=== PATIENT | male | born 1955 | race Native Hawaiian/Other Pacific Islander ===

== ENCOUNTER 2017-01-16 12:56 | Emergency (ER) | payer OTHER ==
--- NOTE | 2017-01-16 13:40 | ED Physician Documentation ---
PD HPI CHEST PAIN - Stated complaint Stated Complaint: CHEST PX,FACIAL NUMBNESS - Chief complaint Chief Complaint: Cardiac - History obtained from History obtained from: Patient, Family - History of Present Illness Timing - onset: Enter time (1129), Today Timing - onset during: Light activity Timing - duration: Hours (1) Timing - details: Abrupt onset, Now resolved Quality: Sharp, Pain Location: Right chest Radiation: Right upper extremity Improved by: Nothing Associated symptoms: Shortness of air, Diaphoresis, Nausea Similar symptoms before: Diagnosis (reflux symptoms) Recently seen: Not recently seen - Additional information Additional information: 61-year-old male has had an episode of chest pain today while at work. 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 He developed some numbness around his lips as well. He has had some similar symptoms to this previously with reflux. He has had a reflux operation more than 10 years ago and he has had one admission to [facility] for this type of chest pain and this was about 6 years ago when they did a stress test and made the diagnosis of reflux. Review of Systems Constitutional: reports: Sweats. denies: Fever, Chills, Myalgias, Fatigue Eyes: denies: Decreased vision Ears: denies: Ear pain Nose: denies: Rhinorrhea / runny nose, Congestion Throat: denies: Sore throat Cardiac: reports: Chest pain / pressure. denies: Palpitations Respiratory: reports: Dyspnea. denies: Cough GI: denies: Abdominal Pain, Nausea, Vomiting, Constipation, Diarrhea : denies: Dysuria, Frequency Skin: denies: Rash Musculoskeletal: denies: Neck pain, Back pain, Extremity pain Neurologic: reports: Numbness. denies: Generalized weakness, Focal weakness PD PAST MEDICAL HISTORY - Past Medical History Cardiovascular: Hypertension, High cholesterol GI: GERD - Past Surgical History Past Surgical History: Yes - Present Medications Home Medications: Ambulatory Orders Medication Instructions Recorded Confirmed Aspirin [Aspir 81] 81 mg PO 05/05/13 05/05/13 Cetirizine HCl [Zyrtec] 10 mg PO 05/05/13 05/05/13 High Cholestrol 05/05/13 05/05/13 Htn Meds 05/05/13 05/05/13 Simvastatin 30 mg PO 05/05/13 05/05/13 - Allergies Allergies/Adverse Reactions: Allergies Allergy/AdvReac Type Severity Reaction Status Date / Time grass pollen Allergy Respiratory Verified 01/16/17 13:06 - Social History Does the pt smoke?: No Smoking Status: Never smoker Does the pt drink ETOH?: Yes - Immunizations Immunizations: TDAP current <10years PD ED PE NORMAL - Vitals Vital signs reviewed: Yes (Hypertensive and tachycardic) - General General: Alert and oriented X 3, No acute distress, Well developed/nourished - HEENT HEENT: Atraumatic, PERRL, EOMI, Ears normal, Other (Dry mucous membranes) - Neck Neck: Supple, no meningeal sign, No bony TTP - Cardiac Cardiac: No murmur, Other (Tachycardic to 110) - Respiratory Respiratory: No respiratory distress, Clear bilaterally - Abdomen Abdomen: Soft, Non tender - Back Back: No CVA TTP, No spinal TTP - Derm Derm: Normal color, No rash - Extremities Extremities: No deformity, No edema - Neuro Neuro: Alert and oriented X 3, No motor deficit, No sensory deficit, Normal speech - Psych Psych: Normal mood, Normal affect Results - Vitals Vitals: Vital Signs - 24 hr 01/16/17 13:00 Heart Rate 100 Respiratory 18 Rate Blood Pressure 154/88 H O2 Saturation 95 Oxygen O2 Source Room air - EKG (time done) 1302 Rate: Rate (enter#) (104) Rhythm: Sinus tachycardia Ischemia: Normal ST segments, Non specific changes Compare to prior EKG: Old EKG unavailable Computer interpretation: Agree with computer - Labs Labs: Laboratory Tests 01/16/17 01/16/17 01/16/17 14:12 14:12 14:12 WBC 6.1 RBC 4.94 Hgb 14.7 Hct 43.7 MCV 88.4 MCH 29.8 MCHC 33.7 RDW 13.2 Plt Count 148 MPV 7.8 Neut # 4.4 Lymph # 1.0 L Stevens # 0.6 Eos # 0.0 Baso # 0.1 Absolute Nucleated RBC 0.00 Nucleated RBCs 0.0 Sodium 135 Potassium 4.0 Chloride 100 L Carbon Dioxide 24 Anion Gap 11.0 BUN 20 Creatinine 0.7 Estimated GFR (MDRD) 115 Glucose 117 H Calcium 9.0 Total Bilirubin 1.1 H AST 53 H ALT 45 Alkaline Phosphatase 57 Troponin I < 0.04 Total Protein 8.1 Albumin 4.5 Globulin 3.6 Albumin/Globulin Ratio 1.3 Lipase 33 - Rads (name of study) 2 view chest Radiology: Prelim report reviewed (Impression: Chronic findings. No acute disease.), EMP read indepedently, See rad report Procedures - IVC sono (time) 1336 Bedside IVC sono: IVC measures (cm) (1.24), IVC collapsed c insp (cm) (complete) , Dehydration (mild) PD MEDICAL DECISION MAKING - ED course Complexity details: reviewed old records, reviewed results, re-evaluated patient , d/w patient, d/w family ED course: 7-year-old male with a history of reflux has developed acute right-sided chest pain with radiation to the right arm he had some numbness to his lips he does state that at the time he was breathing heavily when this occurred and he has had now resolution of his symptoms. He does appear mildly dehydrated on evaluation of the inferior vena cava. He has played 27 holes of golf yesterday in the hot sun and I suspect this may be the reason for his mild dehydration. Intravenous fluid is begun and his blood work is processed for LINDEN. Blood work and CXR are unremarkable and the patient is asymptomatic. I suspect as he does that this pain is related to his reflux. Departure - Departure Disposition: 01 Home, Self Care Clinical Impression: Atypical chest pain, Reflux esophagitis Condition: Stable Instructions: ED GERD Follow-Up: Blake Kwon MD [Primary Care Provider] -
[2017-01-16 14:19] LABS: BASOPHILS # (AUTO) 0.1 10^3/uL (0.0-0.1); BASOPHILS % (AUTO) 1.1 %; EOSINOPHILS % (AUTO) 0.6 %; HCT - HEMATOCRIT 43.7 % (42.0-52.0); HGB - HEMOGLOBIN 14.7 g/dL (14.0-18.0); LYMPHOCYTES % (AUTO) 17.1 %; MEAN CORPUSCULAR HEMOGLOBIN 29.8 pg (27.0-31.0); MEAN CORPUSCULAR HGB CONC 33.7 g/dL (32.0-36.0); MEAN CORPUSCULAR VOLUME 88.4 fL (80.0-94.0); MEAN PLATELET VOLUME 7.8 fL (7.4-11.4); MONOCYTES # (AUTO) 0.6 10^3/uL (0.0-1.0); MONOCYTES % (AUTO) 9.1 %; NEUTROPHILS # (AUTO) 4.4 10^3/uL (1.5-6.6); NEUTROPHILS % (AUTO) 72.1 %; RED BLOOD COUNT 4.94 10^6/uL (4.70-6.10); RED CELL DISTRIBUTION WIDTH 13.2 % (12.0-15.0); UNCORRECTED WHITE BLOOD COUNT 6.1 x10^3/uL; WHITE BLOOD COUNT 6.1 x10^3/uL (4.8-10.8)
--- NOTE | 2017-01-16 14:25 | XRAY Preliminary Report ---
Exam: XR Chest 2 View PA/LAT IMPRESSION: Chronic findings. No acute disease. [facility] SITE ID: [id number]
--- NOTE | 2017-01-16 14:28 | XRAY Report ---
EXAM: CHEST RADIOGRAPHY EXAM DATE: 01/16/2017 02:09 PM. CLINICAL HISTORY: Chest pain . COMPARISON: 03/25/2015. TECHNIQUE: 2 views. FINDINGS: Lungs/Pleura: Apparent eventration of left posterior diaphragm similar to previous study, most likely Bochdalek hernia. No definite acute infiltrate, consolidation, effusion, or pneumothorax. Mediastinum: Mild cardiomegaly, unchanged. Tortuous and ectatic aorta. Upper lobe vessels not distend ed. Other: Degenerative changes. IMPRESSION: Chronic findings. No acute disease. [facility] Referring Provider Line: [phone] SITE ID: [id number]
[2017-01-16 14:32] LABS: ALBUMIN/GLOBULIN RATIO 1.3 (1.0-2.2); BILIRUBIN,TOTAL 1.1 mg/dL (0.2-1.0); CREATININE 0.7 mg/dL (0.6-1.2); TOTAL PROTEIN 8.1 g/dL (6.7-8.2)
[2017-01-16 14:55] VITALS: BP 149/93
== END 2017-01-16 15:03 | disposition home or self-care (01) ==
LOC: ED 12:56
DX: K21.0 Gastro-esophageal reflux disease with esophagitis (principal); R07.89 Other chest pain; I10 Essential (primary) hypertension; E78.00 Pure hypercholesterolemia, unspecified; Z79.82 Long term (current) use of aspirin
CPT/HCPCS: 36415; 71020; 80053; 83690; 84484; 85025; 93005; 99283; 99284

== ENCOUNTER 2019-01-11 08:00 | Outpatient (CLI) | payer OTHER ==
[2019-01-11 12:52] LABS: BASOPHILS # (AUTO) 0.1 10^3/uL (0.0-0.1); BASOPHILS % (AUTO) 1.5 %; EOSINOPHILS # (AUTO) 0.1 10^3/uL (0.0-0.7); EOSINOPHILS % (AUTO) 2.8 %; HGB - HEMOGLOBIN 13.8 g/dL (14.0-18.0); LYMPHOCYTES # (AUTO) 1.1 10^3/uL (1.5-3.5); LYMPHOCYTES % (AUTO) 23.9 %; MEAN CORPUSCULAR HEMOGLOBIN 31.1 pg (27.0-31.0); MEAN CORPUSCULAR HGB CONC 31.9 g/dL (32.0-36.0); MEAN CORPUSCULAR VOLUME 97.3 fL (80.0-94.0); MEAN PLATELET VOLUME 10.1 fL (7.4-11.4); MONOCYTES # (AUTO) 0.4 10^3/uL (0.0-1.0); MONOCYTES % (AUTO) 8.5 %; NEUTROPHILS # (AUTO) 2.9 10^3/uL (1.5-6.6); PLT - PLATELET COUNT 205 10^3/uL (130-450); RED BLOOD COUNT 4.44 10^6/uL (4.70-6.10); RED CELL DISTRIBUTION WIDTH 14.7 % (12.0-15.0); WHITE BLOOD COUNT 4.6 x10^3/uL (4.8-10.8)
[2019-01-11 13:43] LABS: ALBUMIN 3.8 g/dL (3.2-5.5); ALKALINE PHOSPHATASE 74 IU/L (42-121); ALT ALANINE AMINOTRANSFERASE 83 IU/L (10-60); AST ASPARTATE AMINOTRANSFERASE 100 IU/L (10-42); BILIRUBIN,TOTAL 1.6 mg/dL (0.2-1.0); BUN - BLOOD UREA NITROGEN 10 mg/dL (6-20); CARBON DIOXIDE - CO2 24 mmol/L (21-32); CHLORIDE 108 mmol/L (101-111); CHOL/HDL RATIO 3.9 (<5.0); CHOLESTEROL 160 mg/dL; CREATININE 0.7 mg/dL (0.6-1.2); GFR - MDRD 114 (>89); GLUCOSE 121 mg/dL (70-100); HDL CHOLESTEROL 41 mg/dL; LDL CHOLESTEROL,CALCULATED 100 mg/dL; LDL/HDL RATIO 2.4 (<3.6); SODIUM 140 mmol/L (135-145); TOTAL PROTEIN 7.6 g/dL (6.7-8.2); VLDL CHOLESTEROL 19 mg/dL
[2019-01-11 13:54] LABS: HB2 TOTAL 14.2 g/dL; HEMOGLOBIN A1C 0.51 g/dL; HEMOGLOBIN A1C % 5.4 % (4.6-6.2)
== END 2019-01-11 23:59 | disposition home or self-care (01) ==
LOC: LAB.WCP 08:00
PROVIDERS: ATTEND Family Medicine
DX: R74.8 Abnormal levels of other serum enzymes (principal); E78.5 Hyperlipidemia, unspecified; R73.9 Hyperglycemia, unspecified; I10 Essential (primary) hypertension
CPT/HCPCS: 36415; 80053; 80061; 83036; 83721; 85025

== ENCOUNTER 2019-02-08 07:57 | Outpatient (CLI) | payer OTHER ==
--- NOTE | 2019-02-08 13:10 | Ultrasound Report ---
Reason: ELEVATED LIVER ENZYMES Procedure Date: 02/08/2019 Accession Number: [id number] / [id number] Procedure: US - Abdomen Limited CPT Code: FULL RESULT: EXAM: ABDOMEN ULTRASOUND LIMITED, RUQ EXAM DATE: 02/08/2019 08:57 AM. CLINICAL HISTORY: ELEVATED LIVER ENZYMES. COMPARISON: ABDOMEN 01/31/2014 8:29 AM. TECHNIQUE: Real-time scanning was performed with static images obtained. FINDINGS: Liver: Increased both in size and echotexture. 19.1 cm. Main portal vein flow: Hepatopetal. Biliary System: CBD measures 6.5 mm. No intrahepatic or extrahepatic ductal dilatation. Free fluid: None. IMPRESSION: Increased hepatic echogenicity and size consistent with fatty infiltration. [facility]
== END 2019-02-08 07:58 | disposition home or self-care (01) ==
LOC: DI 07:57
PROVIDERS: ATTEND Family Medicine
DX: R74.8 Abnormal levels of other serum enzymes (principal)
CPT/HCPCS: 76705

== ENCOUNTER 2019-02-15 08:00 | Outpatient (CLI) | payer OTHER ==
[2019-02-15 12:04] LABS: BASOPHILS # (AUTO) 0.1 10^3/uL (0.0-0.1); BASOPHILS % (AUTO) 1.4 %; EOSINOPHILS # (AUTO) 0.2 10^3/uL (0.0-0.7); EOSINOPHILS % (AUTO) 4.2 %; HGB - HEMOGLOBIN 15.4 g/dL (14.0-18.0); LYMPHOCYTES # (AUTO) 1.1 10^3/uL (1.5-3.5); LYMPHOCYTES % (AUTO) 26.7 %; MEAN CORPUSCULAR HEMOGLOBIN 30.4 pg (27.0-31.0); MEAN CORPUSCULAR VOLUME 95.3 fL (80.0-94.0); MEAN PLATELET VOLUME 10.4 fL (7.4-11.4); MONOCYTES # (AUTO) 0.5 10^3/uL (0.0-1.0); MONOCYTES % (AUTO) 12.2 %; NEUTROPHILS # (AUTO) 2.3 10^3/uL (1.5-6.6); NEUTROPHILS % (AUTO) 54.8 %; PLT - PLATELET COUNT 153 10^3/uL (130-450); RED BLOOD COUNT 5.06 10^6/uL (4.70-6.10); RED CELL DISTRIBUTION WIDTH 12.6 % (12.0-15.0); WHITE BLOOD COUNT 4.3 x10^3/uL (4.8-10.8)
[2019-02-15 12:12] LABS: CREATININE,URINE 25.6 mg/dL; MICROALBUMIN,URINE < 0.2 mg/dL (0-300.0)
[2019-02-15 12:15] LABS: ALBUMIN/GLOBULIN RATIO 1.1 (1.0-2.2); BILIRUBIN,TOTAL 1.4 mg/dL (0.2-1.0); CALCIUM 8.9 mg/dL (8.5-10.3); CREATININE 0.7 mg/dL (0.6-1.2); TOTAL PROTEIN 7.7 g/dL (6.7-8.2)
== END 2019-02-15 23:59 | disposition home or self-care (01) ==
LOC: LAB.WCP 08:00
PROVIDERS: ATTEND Family Medicine
DX: R74.8 Abnormal levels of other serum enzymes (principal)
CPT/HCPCS: 36415; 80053; 82043; 82570; 85025

== ENCOUNTER 2020-02-28 07:10 | Outpatient (CLI) | payer OTHER ==
[2020-02-28 11:49] LABS: BASOPHILS # (AUTO) 0.1 10^3/uL (0.0-0.1); EOSINOPHILS # (AUTO) 0.1 10^3/uL (0.0-0.7); EOSINOPHILS % (AUTO) 2.9 %; HGB - HEMOGLOBIN 14.8 g/dL (14.0-18.0); LYMPHOCYTES # (AUTO) 1.2 10^3/uL (1.5-3.5); LYMPHOCYTES % (AUTO) 25.5 %; MEAN CORPUSCULAR HEMOGLOBIN 30.7 pg (27.0-31.0); MEAN CORPUSCULAR VOLUME 92.9 fL (80.0-94.0); MEAN PLATELET VOLUME 10.5 fL (7.4-11.4); MONOCYTES # (AUTO) 0.7 10^3/uL (0.0-1.0); MONOCYTES % (AUTO) 14.9 %; NEUTROPHILS # (AUTO) 2.6 10^3/uL (1.5-6.6); NEUTROPHILS % (AUTO) 54.7 %; PLT - PLATELET COUNT 112 10^3/uL (130-450); RED BLOOD COUNT 4.82 10^6/uL (4.70-6.10); RED CELL DISTRIBUTION WIDTH 12.9 % (12.0-15.0); WHITE BLOOD COUNT 4.8 x10^3/uL (4.8-10.8)
[2020-02-28 12:25] LABS: ALBUMIN 4.1 g/dL (3.2-5.5); ALKALINE PHOSPHATASE 95 IU/L (42-121); ALT ALANINE AMINOTRANSFERASE 46 IU/L (10-60); AST ASPARTATE AMINOTRANSFERASE 72 IU/L (10-42); BILIRUBIN,TOTAL 1.8 mg/dL (0.2-1.0); BUN - BLOOD UREA NITROGEN 14 mg/dL (6-20); CALCIUM 8.9 mg/dL (8.5-10.3); CARBON DIOXIDE - CO2 24 mmol/L (21-32); CHLORIDE 103 mmol/L (101-111); CHOL/HDL RATIO 2.6 (<5.0); CHOLESTEROL 128 mg/dL; CREATININE 0.8 mg/dL (0.6-1.2); GLUCOSE 126 mg/dL (70-100); HDL CHOLESTEROL 49 mg/dL; LDL CHOLESTEROL,CALCULATED 64 mg/dL; LDL/HDL RATIO 1.3 (<3.6); SODIUM 136 mmol/L (135-145); TOTAL PROTEIN 8.2 g/dL (6.7-8.2); VLDL CHOLESTEROL 15 mg/dL
[2020-02-28 19:40] LABS: HEMOGLOBIN A1c% 5.8 % (4.27-6.07)
== END 2020-02-28 23:59 | disposition home or self-care (01) ==
LOC: LAB.WCP 07:10
PROVIDERS: ATTEND Family Medicine
DX: I10 Essential (primary) hypertension (principal); R73.01 Impaired fasting glucose; Z79.899 Other long term (current) drug therapy; E78.5 Hyperlipidemia, unspecified; Z12.5 Encounter for screening for malignant neoplasm of prostate
CPT/HCPCS: 36415; 80053; 80061; 83036; 83721; 84153; 84443; 85025

== ENCOUNTER 2020-03-25 16:36 | Emergency (ER) | payer OTHER ==
[2020-03-25 16:49] VITALS: BP 126/68
--- NOTE | 2020-03-25 17:06 | ED Physician Documentation ---
History of Present Illness - Stated complaint Stated Complaint: RT KNEE SWOLLEN - Chief complaint Chief Complaint: Ext Problem - History of Present Illness Timing: Prior to arrival - Additonal information Additional information: 64-year-old male presents the emergency department for evaluation of acute on chronic right knee pain. He reports a history of severe osteoarthritis and has been told in the past that he would likely need a joint replacement in the future. 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 When he got home from work that night he had increased pain and when he woke up yesterday morning he had significant knee swelling. He denies any trauma or fevers. He reports that he has pain with weightbearing of the knee and there is a significant effusion though no erythema around the knee. Review of Systems Constitutional: reports: Reviewed and negative Eyes: reports: Reviewed and negative Ears: reports: Reviewed and negative Throat: reports: Reviewed and negative Cardiac: reports: Reviewed and negative Respiratory: reports: Reviewed and negative GI: reports: Reviewed and negative : reports: Reviewed and negative Skin: reports: Reviewed and negative Musculoskeletal: reports: Joint pain (right knee), Joint swelling (right knee) Neurologic: reports: Reviewed and negative PD PAST MEDICAL HISTORY - Past Medical History Cardiovascular: Hypertension, High cholesterol GI: GERD - Past Surgical History Past Surgical History: Yes - Present Medications Home Medications: Ambulatory Orders Medication Instructions Recorded Confirmed Aspirin [Aspir 81] 81 mg PO 05/05/13 05/05/13 Cetirizine HCl [Zyrtec] 10 mg PO 05/05/13 05/05/13 High Cholestrol 05/05/13 05/05/13 Htn Meds 05/05/13 05/05/13 Simvastatin 30 mg PO 05/05/13 05/05/13 Ibuprofen [Motrin] 600 mg PO Q6H PRN #30 tab 03/25/20 - Allergies Allergies/Adverse Reactions: Allergies Allergy/AdvReac Type Severity Reaction Status Date / Time grass pollen Allergy Respiratory Verified 03/25/20 16:49 - Social History Does the pt smoke?: No Smoking Status: Never smoker Does the pt drink ETOH?: Yes - Immunizations Immunizations: TDAP current <10years PD ED PE EXPANDED - Extremities Extremities: Right knee (Significant swelling of the right knee without laxity. No micromotion tenderness. Pain with weightbearing. Somewhat reduced extension of the knee secondary to pain. Quadriceps tendon remains intact.) Results - Vitals Vitals: Vital Signs - 24 hr 03/25/20 16:46 Temperature 37.4 C Heart Rate 73 Respiratory 16 Rate Blood Pressure 126/68 O2 Saturation 96 Oxygen O2 Source Room air - Rads (name of study) right knee Radiology: Final report received (Severe degenerative joint disease/osteoarthritis. Knee effusion.) PD MEDICAL DECISION MAKING - ED course Complexity details: reviewed results, re-evaluated patient, d/w patient ED course: 64-year-old male presents to the emergency department for evaluation of acute on chronic right knee pain. He does have a history of osteoarthritis in this knee and is attended by an radiation protection specialist in [place]. On exam he has a significant effusion and swelling but no micromotion tenderness or fevers. My suspicion for septic arthritis is very low at this time. X-ray of the knee does show an effusion with degenerative changes but no acute fracture. This gentleman was placed in an Jarrod bandage knee immobilizer and given crutches. I will recommend ibuprofen at home for pain and continuing to ice the knee. I will write a prescription for a very limited amount of [place]. He is to continue follow-up with his orthopedic surgeon and primary care provider. Emergent return precautions discussed Departure - Departure Disposition: 01 Home, Self Care Clinical Impression: Effusion, right knee Degenerative joint disease of knee, right Qualifiers: Osteoarthritis type: primary Qualified Code(s): M17.11 - Unilateral primary osteoarthritis, right knee Condition: Stable Record reviewed to determine appropriate education?: Yes Instructions: ED Degenerative Joint Disease Follow-Up: Juin Augustin DO [Primary Care Provider] - Prescriptions: Ibuprofen [Motrin] 600 mg PO Q6H PRN #30 tab PRN Reason: Pain Comments: Tavon the x-ray of your knee shows degenerative joint disease/arthritis. You also have a fairly significant knee effusion which is the fluid and swelling that you feel. You most likely have a flare of your arthritis after jumping up and down to get out of the truck. I recommend that you wear the Jarrod wrap on the right knee when out of bed for the next week and use the crutches to help with ambulation. I would like you to continue to ice the knee and take the ibuprofen as prescribed. It is very important that you see your orthopedic doctor as soon as possible. It is likely that you will need a knee replacement sooner rather than later.
--- NOTE | 2020-03-25 17:28 | XRAY Report ---
PROCEDURE: Knee 3 View RT INDICATIONS: pain and swelling TECHNIQUE: 3 views of the right knee(s) were acquired. COMPARISON: None. FINDINGS: Bones: There is severe femorotibial compartment narrowing and tricompartmental osteophytes. No acute fracture or dislocation. Soft tissues: There is a moderate knee joint effusion. IMPRESSION: 1. Severe osteoarthritis of the right knee. 2. Moderate joint effusion. 3. No acute fracture or dislocation. If pain persists, cross-sectional imaging with CT or MRI could b e used to further characterize findings. Reviewed by: Anny Kennedy MD on 03/25/2020 5:27 PM PST Approved by: Anny Kennedy MD on 03/25/2020 5:27 PM PST Station ID: [id number]
== END 2020-03-25 18:00 | disposition home or self-care (01) ==
LOC: ED 16:36
DX: M17.11 Unilateral primary osteoarthritis, right knee (principal); M25.461 Effusion, right knee; I10 Essential (primary) hypertension; Z79.82 Long term (current) use of aspirin
CPT/HCPCS: 99281; 99283

== ENCOUNTER 2020-08-28 08:00 | Outpatient (CLI) | payer OTHER ==
[2020-08-28 11:52] LABS: BASOPHILS % (AUTO) 0.8 %; EOSINOPHILS # (AUTO) 0.2 10^3/uL (0.0-0.7); EOSINOPHILS % (AUTO) 4.4 %; HGB - HEMOGLOBIN 15.9 g/dL (14.0-18.0); LYMPHOCYTES # (AUTO) 1.5 10^3/uL (1.5-3.5); LYMPHOCYTES % (AUTO) 30.4 %; MEAN CORPUSCULAR HEMOGLOBIN 30.3 pg (27.0-31.0); MEAN CORPUSCULAR HGB CONC 33.1 g/dL (32.0-36.0); MEAN CORPUSCULAR VOLUME 91.4 fL (80.0-94.0); MEAN PLATELET VOLUME 10.9 fL (7.4-11.4); MONOCYTES # (AUTO) 0.6 10^3/uL (0.0-1.0); MONOCYTES % (AUTO) 11.6 %; NEUTROPHILS # (AUTO) 2.5 10^3/uL (1.5-6.6); NEUTROPHILS % (AUTO) 51.8 %; PLT - PLATELET COUNT 101 10^3/uL (130-450); RED BLOOD COUNT 5.25 10^6/uL (4.70-6.10); RED CELL DISTRIBUTION WIDTH 12.7 % (12.0-15.0); WHITE BLOOD COUNT 4.8 x10^3/uL (4.8-10.8)
[2020-08-28 13:04] LABS: ALBUMIN 4.1 g/dL (3.2-5.5); BILIRUBIN,TOTAL 1.6 mg/dL (0.2-1.0); CALCIUM 9.1 mg/dL (8.5-10.3); CREATININE 0.7 mg/dL (0.6-1.2); POTASSIUM 3.9 mmol/L (3.5-5.0); TOTAL PROTEIN 8.2 g/dL (6.7-8.2)
[2020-08-28 13:09] LABS: ESTIMATED AVERAGE GLUCOSE 120 mg/dL (70-100); HEMOGLOBIN A1c% 5.8 % (4.27-6.07)
[2020-08-30 22:47] LABS: LIVER KIDNEY MICROSOME AB <20.0 U
[2020-08-31 10:51] LABS: ANA SCREEN NEGATIVE (NEGATIVE)
[2020-09-01 14:07] LABS: CERULOPLASMIN 31 mg/dL (18-36)
== END 2020-08-28 23:59 | disposition home or self-care (01) ==
LOC: LAB.WCP 08:00
PROVIDERS: ATTEND Family Medicine
DX: R73.01 Impaired fasting glucose (principal); R74.8 Abnormal levels of other serum enzymes; R97.20 Elevated prostate specific antigen [PSA]; Z72.89 Other problems related to lifestyle
CPT/HCPCS: 36415; 80053; 81599; 82103; 82390; 83036; 84153; 85025; 86038; 86376

== ENCOUNTER 2020-10-16 14:43 | Outpatient (CLI) | payer OTHER ==
--- NOTE | 2020-10-16 15:18 | XRAY Report ---
PROCEDURE: Hand 3 View RT INDICATIONS: HAND PAIN, RIGHT TECHNIQUE: 3 views of the hand(s) acquired. COMPARISON: None FINDINGS: Bones: Moderate first MCP joint osteoarthritic changes are seen. Subcortical radiolucencies are note d, erosive changes cannot be excluded. First interphalangeal joint osteoarthritic changes are noted. Mild osteoarthritic changes also seen involving second through fourth PIP and DIP joints. No definite bony erosion is noted. No fractures or dislocations. No suspicious bony lesions. Soft tissues: Soft tissue swelling over dorsal aspect of first MCP joint is seen. No suspicious soft tissue calcifications. IMPRESSION: Osteoarthritis at first MCP joint with erosive changes involving first metacarpal head concerning for inflammatory arthropathy. Osteoarthritic changes also seen throughout interphalangeal joints. No fra cture or dislocation. Reviewed by: Andrew Madison MD on 10/16/2020 3:17 PM PDT Approved by: Andrew Madison MD on 10/16/2020 3:17 PM PDT Station ID: [id number]
== END 2020-10-16 14:44 | disposition home or self-care (01) ==
LOC: DI.N 14:43
PROVIDERS: ATTEND Family Medicine
DX: M19.041 Primary osteoarthritis, right hand (principal)

== ENCOUNTER 2020-11-15 14:36 | Outpatient (CLI) | payer OTHER | END 2020-11-15 14:37 | disposition short-term general hospital (02) | LOC: EMS 14:36 | DX: R11.10 Vomiting, unspecified (principal); R07.89 Other chest pain | CPT/HCPCS: A0425; A0427 ==

== ENCOUNTER 2020-11-26 08:00 | Outpatient (CLI) | payer OTHER ==
[2020-11-26 18:05] LABS: INR 1.4 (0.8-1.2); PT - PROTHROMBIN TIME 14.8 secs (9.9-12.6)
[2020-11-26 18:10] LABS: BASOPHILS % (AUTO) 0.8 %; EOSINOPHILS % (AUTO) 0.5 %; HCT - HEMATOCRIT 32.6 % (42.0-52.0); HGB - HEMOGLOBIN 10.8 g/dL (14.0-18.0); LYMPHOCYTES % (AUTO) 10.3 %; MEAN CORPUSCULAR HEMOGLOBIN 31.3 pg (27.0-31.0); MEAN CORPUSCULAR HGB CONC 33.1 g/dL (32.0-36.0); MEAN CORPUSCULAR VOLUME 94.5 fL (80.0-94.0); MEAN PLATELET VOLUME 10.8 fL (7.4-11.4); MONOCYTES % (AUTO) 7.2 %; NEUTROPHILS % (AUTO) 75.9 %; PLT - PLATELET COUNT 119 10^3/uL (130-450); RED BLOOD COUNT 3.45 10^6/uL (4.70-6.10); RED CELL DISTRIBUTION WIDTH 22.1 % (12.0-15.0); WHITE BLOOD COUNT 6.4 x10^3/uL (4.8-10.8)
[2020-11-26 18:22] LABS: ABNORMAL LYMPHS % (MANUAL) 0 %
[2020-11-26 18:25] LABS: ALBUMIN 3.5 g/dL (3.2-5.5); ALBUMIN/GLOBULIN RATIO 0.9 (1.0-2.2); BILIRUBIN,TOTAL 11.2 mg/dL (0.2-1.0); CALCIUM 9.2 mg/dL (8.5-10.3); CREATININE 0.7 mg/dL (0.6-1.2); CRP - C-REACTIVE PROTEIN 4.9 mg/dL (0-1.0); POTASSIUM 3.7 mmol/L (3.5-5.0); TOTAL PROTEIN 7.5 g/dL (6.7-8.2); URIC ACID 5.7 mg/dL (2.6-7.2)
[2020-11-26 19:22] LABS: BAND NEUTROPHILS % (MANUAL) 3 %; BASOPHILS # (MANUAL) 0.2 10^3/uL (0-0.1); BASOPHILS % (MANUAL) 3 %; LYMPHOCYTES # (MANUAL) 0.7 10^3/uL (1.5-3.5); LYMPHOCYTES % (MANUAL) 11 %; METAMYELOCYTES % (MANUAL) 3 %; MONOCYTES # (MANUAL) 0.3 10^3/uL (0.0-1.0); MYELOCYTES % (MANUAL) 3 %; NEUTROPHILS # (MANUAL) 4.8 10^3/uL (1.5-6.6)
[2020-11-26 19:25] LABS: DIFFERENTIAL COMMENT MANUAL DIFFERENTIAL; PLATELET ESTIMATE, MANUAL DECREASED (<130,000) (NORMAL); PLATELET MORPHOLOGY NORMAL APPEARANCE (NORMAL)
[2020-11-26 19:39] LABS: RHEUMATOID FACTOR NEGATIVE (Negative)
[2020-11-28 10:21] LABS: HAPTOGLOBIN 68 mg/dL (43-212)
[2020-12-02 12:02] LABS: CYCLIC CITRULL PEPTIDE CCP IGG <16 UNITS
== END 2020-11-26 23:59 | disposition home or self-care (01) ==
LOC: LAB.WCP 08:00
PROVIDERS: ATTEND Family Medicine
DX: D69.6 Thrombocytopenia, unspecified (principal); K70.30 Alcoholic cirrhosis of liver without ascites; E80.6 Other disorders of bilirubin metabolism; M25.50 Pain in unspecified joint
CPT/HCPCS: 36415; 80053; 83010; 83615; 83735; 84550; 85025; 85610; 85651; 86140; 86200; 86430

== ENCOUNTER 2021-01-01 07:17 | Outpatient (CLI) | payer OTHER ==
[2021-01-01 18:35] LABS: INR 1.3 (0.8-1.2); PT - PROTHROMBIN TIME 14.1 secs (9.9-12.6)
[2021-01-01 18:36] LABS: BASOPHILS # (AUTO) 0.1 10^3/uL (0.0-0.1); BASOPHILS % (AUTO) 1.1 %; EOSINOPHILS # (AUTO) 0.2 10^3/uL (0.0-0.7); EOSINOPHILS % (AUTO) 4.6 %; HCT - HEMATOCRIT 43.6 % (42.0-52.0); HGB - HEMOGLOBIN 13.6 g/dL (14.0-18.0); LYMPHOCYTES # (AUTO) 1.4 10^3/uL (1.5-3.5); LYMPHOCYTES % (AUTO) 31.8 %; MEAN CORPUSCULAR HEMOGLOBIN 31.8 pg (27.0-31.0); MEAN CORPUSCULAR HGB CONC 31.2 g/dL (32.0-36.0); MEAN CORPUSCULAR VOLUME 101.9 fL (80.0-94.0); MEAN PLATELET VOLUME 10.2 fL (7.4-11.4); MONOCYTES # (AUTO) 0.5 10^3/uL (0.0-1.0); MONOCYTES % (AUTO) 11.9 %; NEUTROPHILS # (AUTO) 2.2 10^3/uL (1.5-6.6); NEUTROPHILS % (AUTO) 48.2 %; PLT - PLATELET COUNT 164 10^3/uL (130-450); RED BLOOD COUNT 4.28 10^6/uL (4.70-6.10); RED CELL DISTRIBUTION WIDTH 13.2 % (12.0-15.0); WHITE BLOOD COUNT 4.5 x10^3/uL (4.8-10.8)
[2021-01-01 19:04] LABS: ALBUMIN 3.7 g/dL (3.2-5.5); ALBUMIN/GLOBULIN RATIO 0.8 (1.0-2.2); ALKALINE PHOSPHATASE 125 IU/L (42-121); ALT ALANINE AMINOTRANSFERASE 39 IU/L (10-60); AST ASPARTATE AMINOTRANSFERASE 48 IU/L (10-42); BILIRUBIN,TOTAL 1.5 mg/dL (0.2-1.0); BUN - BLOOD UREA NITROGEN 15 mg/dL (6-20); CALCIUM 9.2 mg/dL (8.5-10.3); CARBON DIOXIDE - CO2 25 mmol/L (21-32); CHLORIDE 102 mmol/L (101-111); CHOL/HDL RATIO 4.3 (<5.0); CHOLESTEROL 165 mg/dL; CREATININE 0.7 mg/dL (0.6-1.2); GAMMA GLUTAMYL TRANSPEPTIDASE 340 IU/L (8-55); GFR - MDRD 114 (>89); GLUCOSE 132 mg/dL (70-100); HDL CHOLESTEROL 38 mg/dL; LDL CHOLESTEROL,CALCULATED 109 mg/dL; LDL/HDL RATIO 2.9 (<3.6); POTASSIUM 3.9 mmol/L (3.5-5.0); SODIUM 137 mmol/L (135-145); TOTAL PROTEIN 8.1 g/dL (6.7-8.2); TRIGLYCERIDES 89 mg/dL; VLDL CHOLESTEROL 18 mg/dL
== END 2021-01-01 23:59 | disposition home or self-care (01) ==
LOC: LAB.WCP 07:17
PROVIDERS: ATTEND Family Medicine
DX: I10 Essential (primary) hypertension (principal); R97.20 Elevated prostate specific antigen [PSA]; Z72.89 Other problems related to lifestyle; K70.30 Alcoholic cirrhosis of liver without ascites
CPT/HCPCS: 36415; 80053; 80061; 82977; 83721; 84153; 85025; 85610

== ENCOUNTER 2021-03-04 15:52 | Outpatient (CLI) | payer OTHER ==
[2021-03-04 17:55] LABS: INR 1.2 (0.8-1.2); PT - PROTHROMBIN TIME 13.2 secs (9.9-12.6)
[2021-03-04 18:04] LABS: BASOPHILS % (AUTO) 0.8 %; EOSINOPHILS # (AUTO) 0.3 10^3/uL (0.0-0.7); EOSINOPHILS % (AUTO) 4.9 %; HCT - HEMATOCRIT 47.5 % (42.0-52.0); HGB - HEMOGLOBIN 15.3 g/dL (14.0-18.0); LYMPHOCYTES # (AUTO) 1.6 10^3/uL (1.5-3.5); LYMPHOCYTES % (AUTO) 30.9 %; MEAN CORPUSCULAR HEMOGLOBIN 29.3 pg (27.0-31.0); MEAN CORPUSCULAR HGB CONC 32.2 g/dL (32.0-36.0); MEAN PLATELET VOLUME 11.8 fL (7.4-11.4); MONOCYTES # (AUTO) 0.7 10^3/uL (0.0-1.0); MONOCYTES % (AUTO) 13.2 %; NEUTROPHILS # (AUTO) 2.5 10^3/uL (1.5-6.6); NEUTROPHILS % (AUTO) 49.2 %; PLT - PLATELET COUNT 92 10^3/uL (130-450); RED BLOOD COUNT 5.22 10^6/uL (4.70-6.10); RED CELL DISTRIBUTION WIDTH 13.1 % (12.0-15.0); WHITE BLOOD COUNT 5.2 x10^3/uL (4.8-10.8)
[2021-03-04 21:00] LABS: ALBUMIN 4.3 g/dL (3.2-5.5); BILIRUBIN,TOTAL 1.6 mg/dL (0.2-1.0); CALCIUM 9.7 mg/dL (8.5-10.3); CREATININE 0.8 mg/dL (0.6-1.2); POTASSIUM 4.3 mmol/L (3.5-5.0); TOTAL PROTEIN 8.4 g/dL (6.7-8.2)
== END 2021-03-04 15:53 | disposition home or self-care (01) ==
LOC: LAB.N 15:52
PROVIDERS: ATTEND Family Medicine
DX: K70.30 Alcoholic cirrhosis of liver without ascites (principal); R97.20 Elevated prostate specific antigen [PSA]
CPT/HCPCS: 36415; 80053; 83735; 84153; 85025; 85610

== ENCOUNTER 2021-09-02 15:54 | Outpatient (CLI) | payer OTHER ==
[2021-09-02 18:21] LABS: BASOPHILS # (AUTO) 0.1 10^3/uL (0.0-0.1); BASOPHILS % (AUTO) 1.1 %; EOSINOPHILS # (AUTO) 0.2 10^3/uL (0.0-0.7); EOSINOPHILS % (AUTO) 3.5 %; HCT - HEMATOCRIT 45.5 % (42.0-52.0); HGB - HEMOGLOBIN 14.4 g/dL (14.0-18.0); LYMPHOCYTES # (AUTO) 1.4 10^3/uL (1.5-3.5); LYMPHOCYTES % (AUTO) 29.4 %; MEAN CORPUSCULAR HEMOGLOBIN 27.5 pg (27.0-31.0); MEAN CORPUSCULAR HGB CONC 31.6 g/dL (32.0-36.0); MEAN PLATELET VOLUME 10.7 fL (7.4-11.4); MONOCYTES # (AUTO) 0.6 10^3/uL (0.0-1.0); MONOCYTES % (AUTO) 12.6 %; NEUTROPHILS # (AUTO) 2.4 10^3/uL (1.5-6.6); NEUTROPHILS % (AUTO) 52.5 %; PLT - PLATELET COUNT 96 10^3/uL (130-450); RED BLOOD COUNT 5.23 10^6/uL (4.70-6.10); RED CELL DISTRIBUTION WIDTH 14.6 % (12.0-15.0); WHITE BLOOD COUNT 4.6 x10^3/uL (4.8-10.8)
[2021-09-02 18:42] LABS: ALBUMIN 4.1 g/dL (3.2-5.5); ALKALINE PHOSPHATASE 103 IU/L (42-121); ALT ALANINE AMINOTRANSFERASE 29 IU/L (10-60); AST ASPARTATE AMINOTRANSFERASE 38 IU/L (10-42); BILIRUBIN,TOTAL 1.7 mg/dL (0.2-1.0); BUN - BLOOD UREA NITROGEN 17 mg/dL (6-20); CALCIUM 9.2 mg/dL (8.5-10.3); CARBON DIOXIDE - CO2 28 mmol/L (21-32); CHLORIDE 98 mmol/L (101-111); CHOL/HDL RATIO 3.1 (<5.0); CHOLESTEROL 117 mg/dL; CREATININE 0.9 mg/dL (0.6-1.2); GFR - MDRD 85 (>89); GLUCOSE 101 mg/dL (70-100); HDL CHOLESTEROL 38 mg/dL; LDL CHOLESTEROL,CALCULATED 65 mg/dL; LDL/HDL RATIO 1.7 (<3.6); POTASSIUM 4.1 mmol/L (3.5-5.0); SODIUM 135 mmol/L (135-145); TOTAL PROTEIN 8.4 g/dL (6.7-8.2); TRIGLYCERIDES 70 mg/dL; VLDL CHOLESTEROL 14 mg/dL
== END 2021-09-02 15:55 | disposition home or self-care (01) ==
LOC: LAB.N 15:54
PROVIDERS: ATTEND Family Medicine
DX: K70.30 Alcoholic cirrhosis of liver without ascites (principal); E78.5 Hyperlipidemia, unspecified; R73.01 Impaired fasting glucose; R97.20 Elevated prostate specific antigen [PSA]; D69.6 Thrombocytopenia, unspecified
CPT/HCPCS: 36415; 80053; 80061; 81599; 83036; 83721; 84153; 85025

== ENCOUNTER 2022-08-26 07:05 | Outpatient (CLI) | payer OTHER ==
[2022-08-26 11:34] LABS: EOSINOPHILS # (AUTO) 0.1 10^3/uL (0.0-0.7); EOSINOPHILS % (AUTO) 3.2 %; HCT - HEMATOCRIT 50.3 % (42.0-52.0); HGB - HEMOGLOBIN 15.8 g/dL (14.0-18.0); LYMPHOCYTES % (AUTO) 24.3 %; MEAN CORPUSCULAR HEMOGLOBIN 29.4 pg (27.0-31.0); MEAN CORPUSCULAR HGB CONC 31.4 g/dL (32.0-36.0); MEAN CORPUSCULAR VOLUME 93.5 fL (80.0-94.0); MEAN PLATELET VOLUME 11.6 fL (7.4-11.4); MONOCYTES # (AUTO) 0.5 10^3/uL (0.0-1.0); MONOCYTES % (AUTO) 11.4 %; NEUTROPHILS # (AUTO) 2.4 10^3/uL (1.5-6.6); NEUTROPHILS % (AUTO) 58.6 %; PLT - PLATELET COUNT 89 10^3/uL (130-450); RED BLOOD COUNT 5.38 10^6/uL (4.70-6.10); RED CELL DISTRIBUTION WIDTH 12.7 % (12.0-15.0); WHITE BLOOD COUNT 4.1 x10^3/uL (4.8-10.8)
[2022-08-26 11:58] LABS: ALBUMIN 4.1 g/dL (3.2-5.5); ALKALINE PHOSPHATASE 107 IU/L (42-121); ALT ALANINE AMINOTRANSFERASE 52 IU/L (10-60); AST ASPARTATE AMINOTRANSFERASE 57 IU/L (10-42); BILIRUBIN,TOTAL 1.5 mg/dL (0.2-1.0); BUN - BLOOD UREA NITROGEN 11 mg/dL (6-20); CARBON DIOXIDE - CO2 30 mmol/L (21-32); CHLORIDE 102 mmol/L (101-111); CHOL/HDL RATIO 3.1 (<5.0); CHOLESTEROL 132 mg/dL; CREATININE 0.8 mg/dL (0.6-1.2); GFR - MDRD 97 (>89); GLUCOSE 171 mg/dL (70-100); HDL CHOLESTEROL 42 mg/dL; LDL CHOLESTEROL,CALCULATED 78 mg/dL; LDL/HDL RATIO 1.9 (<3.6); POTASSIUM 4.1 mmol/L (3.5-5.0); SODIUM 138 mmol/L (135-145); TOTAL PROTEIN 8.2 g/dL (6.7-8.2); TRIGLYCERIDES 60 mg/dL; VLDL CHOLESTEROL 12 mg/dL
[2022-08-26 12:12] LABS: THYROID STIMULATING HORMONE 1.42 uIU/mL (0.34-5.60)
== END 2022-08-26 07:06 | disposition home or self-care (01) ==
LOC: LAB.N 07:05
PROVIDERS: ATTEND Nurse Practitioner Family
DX: I10 Essential (primary) hypertension (principal); E78.5 Hyperlipidemia, unspecified; R97.20 Elevated prostate specific antigen [PSA]; Z13.29 Encounter for screening for other suspected endocrine disorder
CPT/HCPCS: 36415; 80053; 80061; 83721; 84153; 84443; 85025

== ENCOUNTER 2022-09-28 07:15 | Outpatient (CLI) | payer OTHER ==
[2022-09-28 12:14] LABS: PSA TOTAL 15.542 ng/mL (0.000-2.000)
[2022-09-28 12:48] LABS: PSA FREE 2.267 ng/mL (0.16-2.81)
== END 2022-09-28 07:16 | disposition home or self-care (01) ==
LOC: LAB.N 07:15
PROVIDERS: ATTEND Physician Assistant Medical
DX: R97.20 Elevated prostate specific antigen [PSA] (principal)
CPT/HCPCS: 36415; 84153; 84154

== ENCOUNTER 2023-05-25 08:00 | Outpatient (CLI) | payer OTHER | END 2023-05-25 23:59 | disposition home or self-care (01) | LOC: LAB.N 08:00 | PROVIDERS: ATTEND Physician Assistant Medical | DX: N30.01 Acute cystitis with hematuria (principal) | CPT/HCPCS: 87077; 87086; 87181 ==

== ENCOUNTER 2023-09-21 15:30 | Outpatient (CLI) | payer OTHER ==
[2023-09-21 17:53] LABS: BASOPHILS % (AUTO) 0.8 %; EOSINOPHILS # (AUTO) 0.1 10^3/uL (0.0-0.7); EOSINOPHILS % (AUTO) 1.3 %; HGB - HEMOGLOBIN 13.5 g/dL (14.0-18.0); LYMPHOCYTES # (AUTO) 0.8 10^3/uL (1.5-3.5); LYMPHOCYTES % (AUTO) 17.3 %; MEAN CORPUSCULAR HGB CONC 33.8 g/dL (32.0-36.0); MEAN PLATELET VOLUME 11.7 fL (7.4-11.4); MONOCYTES # (AUTO) 0.6 10^3/uL (0.0-1.0); MONOCYTES % (AUTO) 11.8 %; NEUTROPHILS # (AUTO) 3.2 10^3/uL (1.5-6.6); NEUTROPHILS % (AUTO) 67.3 %; PLT - PLATELET COUNT 77 10^3/uL (130-450); RED BLOOD COUNT 4.35 10^6/uL (4.70-6.10); RED CELL DISTRIBUTION WIDTH 16.2 % (12.0-15.0); WHITE BLOOD COUNT 4.7 x10^3/uL (4.8-10.8)
[2023-09-21 18:17] LABS: ALBUMIN 3.4 g/dL (3.2-5.5); ALBUMIN/GLOBULIN RATIO 0.9 (1.0-2.2); ALKALINE PHOSPHATASE 259 IU/L (42-121); ALT ALANINE AMINOTRANSFERASE 135 IU/L (10-60); AST ASPARTATE AMINOTRANSFERASE 338 IU/L (10-42); BILIRUBIN,TOTAL 9.9 mg/dL (0.2-1.0); BUN - BLOOD UREA NITROGEN 17 mg/dL (6-20); CALCIUM 9.4 mg/dL (8.5-10.3); CARBON DIOXIDE - CO2 27 mmol/L (21-32); CHLORIDE 93 mmol/L (101-111); CREATININE 1.2 mg/dL (0.6-1.3); GFR - MDRD 61 (>89); GLUCOSE 131 mg/dL (74-104); HDL CHOLESTEROL 9 mg/dL; POTASSIUM 3.7 mmol/L (3.5-4.5); SODIUM 128 mmol/L (135-145); TOTAL PROTEIN 7.2 g/dL (6.4-8.9); TRIGLYCERIDES 312 mg/dL (48-352); VLDL CHOLESTEROL 62 mg/dL
[2023-09-21 18:23] LABS: THYROID STIMULATING HORMONE 1.96 uIU/mL (0.34-5.60)
[2023-09-21 18:30] LABS: CHOLESTEROL 117 mg/dL; LDL CHOLESTEROL,CALCULATED 46 mg/dL; LDL/HDL RATIO 5.1 (<3.6)
[2023-09-21 21:03] LABS: ESTIMATED AVERAGE GLUCOSE 126 mg/dL (70-100)
== END 2023-09-21 15:31 | disposition home or self-care (01) ==
LOC: LAB.N 15:30
PROVIDERS: ATTEND Internal Medicine Hematology & Oncology
DX: C61 Malignant neoplasm of prostate (principal); I10 Essential (primary) hypertension; R73.01 Impaired fasting glucose; E78.5 Hyperlipidemia, unspecified; Z91.89 Other specified personal risk factors, not elsewhere classified
CPT/HCPCS: 36415; 80053; 80061; 83036; 83721; 84153; 84443; 85025

== ENCOUNTER 2023-11-02 11:15 | Outpatient (CLI) | payer OTHER ==
--- NOTE | 2023-11-02 21:50 | XRAY Report ---
PROCEDURE: Knee 3V RT INDICATIONS: RIGHT KNEE PAIN TECHNIQUE: 3 views of the knee(s) were acquired. COMPARISON: 03/25/2020. FINDINGS: Bones: No fractures or dislocations. No suspicious bony lesions. Interval right total knee arthropl asty. Normal postsurgical alignment. No evidence for hardware loosening or failure. Soft tissues: No significant knee joint effusion. No suspicious soft tissue calcifications or masses . IMPRESSION: Status post right total knee arthroplasty without evidence for hardware complication. Reviewed by: Dajuan Garcia MD on 11/02/2023 9:49 PM PDT Approved by: Dajuan Garcia MD on 11/02/2023 9:49 PM PDT Station ID: [id number]
--- NOTE | 2023-11-02 21:52 | XRAY Report ---
PROCEDURE: ThoracoLumbar 2+V INDICATIONS: LOW BACK STRAIN TECHNIQUE: 2 views acquired of the thoracolumbar spine. COMPARISON: Chest radiograph dated 05/26/2017 FINDINGS: Bones: No acute fractures or dislocations. Visualized inferior ribs appear intact. No suspicious b amalia lesions. Moderate multilevel thoracolumbar spondylosis most severe in the mid and lower lumbar s pine. There is minimal lower lumbar spine facet arthropathy. No acute compression fractures. Soft tissues: No suspicious soft tissue calcifications. IMPRESSION: Thoracolumbar spine without acute fracture or traumatic malalignment. Moderate multilevel thoracolumb ar stenosis. Reviewed by: Dajuan Garcia MD on 11/02/2023 9:51 PM PDT Approved by: Dajuan Garcia MD on 11/02/2023 9:51 PM PDT Station ID: [id number]
--- NOTE | 2023-11-02 21:54 | XRAY Report ---
PROCEDURE: Hip w/Pelvis 2-3V RT INDICATIONS: RIGHT HIP PAIN TECHNIQUE: views of the hip were acquired. COMPARISON: None. FINDINGS: Bones: No acute fractures or dislocations. No suspicious bony lesions. Moderate left and moderate-s evere right bilateral hip osteoarthrosis. There is moderate joint space loss over the superior aspect of the right femoroacetabular joint. Lower lumbar spine spondylosis. Soft tissues: No suspicious soft tissue calcifications or masses. IMPRESSION: Right hip without acute fracture or dislocation. Moderate-severe right hip osteoarthrosis with superior joint space loss. Reviewed by: Dajuan Garcia MD on 11/02/2023 9:53 PM PDT Approved by: Dajuan Garcia MD on 11/02/2023 9:53 PM PDT Station ID: [id number]
== END 2023-11-02 11:16 | disposition home or self-care (01) ==
LOC: DI 11:15
PROVIDERS: ATTEND Physician Assistant
DX: M25.561 Pain in right knee (principal); M47.815 Spondylosis without myelopathy or radiculopathy, thoracolumbar region; M48.05 Spinal stenosis, thoracolumbar region; M47.816 Spondylosis without myelopathy or radiculopathy, lumbar region; M16.11 Unilateral primary osteoarthritis, right hip; Z96.651 Presence of right artificial knee joint

== ENCOUNTER 2024-09-10 10:41 | Inpatient (IN) ==
--- OUTSIDE RECORDS SUMMARY | 2024-09-10 10:51 | EXTERNAL MEDICAL SUMMARY RPT | Continuity of Care Document ---
Author Organization [facility] Address [address] [place] [id number] Phone Problems date description facility 2024-07-11 00:01 Obesity, unspecified [facility] 2024-07-11 00:01 [facility], [facility]at [facility]24-07-11 00:01 [facility]ential (primary) [facility]ensio [facility] 2024-07-11 00:01 Alcoholic hepatitis with ascite s [facility] 2024-07-11 00:01 Alcoholic cirrhosis of liver ok th ascites [facility] 2024-07-11 00:01 Personal history of other diseases of the digestive system [facility] 2024-07-11 00:01 Other specified postprocedural states [facility] 2024-07-18 08:40 Obesity, unspecified [facility] 2024-07-18 08:40 Alcohol dependence, uncomplicat ed [facility] 2024-07-18 08:40 Essential (primary) hypertensio n [facility] 2024-07-18 08:40 Noninfective gastroenteritis an d colitis, unspecified [facility] 2024-07-18 08:40 Alcoholic hepatitis with ascite s [facility] 2024-07-18 08:40 Alcoholic cirrhosis of liver wi th ascites [facility] 2024-07-18 08:40 Melena [facility] 2024-07-18 08:40 Chest pain, unspecified [facility] 2024-07-18 08:40 Nausea with vomiting, unspecifi ed [facility] 2024-07-18 08:40 Hematuria, unspecified [facility] 2024-07-18 08:40 Weakness [facility] 2024-07-18 08:40 Syncope and collapse [facility] 2024-07-18 08:40 Other symptoms and s igns concerning food and fluid intake [facility] 2024-07-18 08:40 Unspecified injury of head, ini tial encounter [facility] 2024-07-18 08:40 Personal history of other diseases of the digestive system [facility] 2024-07-18 08:40 Other specified postprocedural states [facility] 2024-07-31 15:54 Noninfective gastroenteritis an d colitis, unspecified [facility] 2024-07-31 15:54 [facility]ena [facility] 2024-07-31 15:54 Chest pain, unspecified [facility] 2024-07-31 15:54 Nausea with vomiting, unspecifi ed [facility] 2024-07-31 15:54 Hematuria, unspecified [facility] 2024-07-31 15:54 Weakness [facility] 2024-07-31 15:54 Syncope and collapse [facility] 2024-07-31 15:54 Other symptoms and s igns concerning food and fluid intake [facility] 2024-07-31 15:54 Unspecified injury of head, ini [facility]ial [facility] 2024-08-07 07:26 Alcoholic cirrhosis of liver wi th ascites [facility] 2024-08-13 14:21 Other visual disturbances [facility] 2024-08-13 14:21 Dizziness and giddiness [facility] 2024-08-13 14:21 Weakness [facility] 2024-08-14 13:47 Unspecified visual disturbance [facility] 2024-08-27 14:42 Other visual disturbances [facility] [employer] [facility] 2024-08-27 14:42 Dizziness and giddiness [facility] 2024-08-27 14:42 Weakness [facility] 2024-09-10 08:48 Malignant neoplasm of prostate [facility] 2024-09-10 08:52 Malignant neoplasm of prostate [facility] 2024-09-10 09:21 Malignant neoplasm of prostate [facility] 2024-09-10 09:21 Hyperlipidemia, unspecified [facility] 2024-09-10 09:21 Essential (primary) hypertensio n [facility] 2024-09-10 09:21 Alcoholic cirrhosis of liver wi th ascites [facility] 2024-09-10 09:21 Body mass index [BMI] 40.0-44.9 , adult [facility] 2024-09-10 10:28 Hypotension, unspecified [email or web address] 2024-09-10 10:28 Dizziness and giddiness [facility] Results/Labs test date facility value unit notes Result panel 1 GLUCOSE, WHOLE BLOOD 2024-08-08 21:34 [facility] 104 (missing) (missing) Result panel 2 NUCLEATED RED BLOOD CELLS AUTO 2024-08-08 21:40 [facility] 0.0 /100wbc (missing) BASOPHILS # (AUTO) 2024-08-08 21:40 [facility] 0.0 10 3/ul (missing) NRBC ABSOLUTE COUNT (AUTO) 2024-08-08 21:40 [facility] 0.00 x10 3/ul (missing) EOSINOPHILS # (AUTO) 2024-08-08 21:40 [facility] 0.1 10 3/ul (missing) ALBUMIN/GLOBULIN RATIO 2024-08-08 21:40 [facility] 0.6 (missing) (missing) LYMPHOCYTES # (AUTO) 2024-08-08 21:40 [facility] 0.7 10 3/ul (missing) MONOCYTES # (AUTO) 2024-08-08 21:40 [facility] 0.9 10 3/ul (missing) RBC MORPHOLOGY (MULTIPLE) 2024-08-08 21:40 [facility] 1+ HYPOCHROMASIA (missing) (missing) RBC MORPHOLOGY (MULTIPLE) 2024-08-08 21:40 [facility] 1+ OVALOCYTES (missing) (missing) CREATININE 2024-08-08 21:40 [facility] 1.9 mg/dl As of November 2022 testing method has changed, this may include reference ranges. GLUCOSE 2024-08-08 21:40 [facility] 109 mg/dl As of November 2022 testing method has changed, this may include reference ranges. CHLORIDE 2024-08-08 21:40 [facility] 109 mmol/l As of November 2022 testing method has changed, this may include reference ranges. ANION GAP 2024-08-08 21:40 [facility] 11.0 (missing) (missing) ETOH - ETHANOL 2024-08-08 21:40 [facility] 116.7 mg/dl Blood Alcohol Levels Level Sporadic Drinkers Chronic drinkers ===== === 100 mg/dL Legally intoxicated* Minimal signs 200-250 mg/dL Alertness lost, Effort needed to becoming lethargic maintain emotional and motor control 300-350 mg/dL Stupor to coma Drowsy and slow >500 mg/dL Possible Coma *The legal definition of intoxication varies. This assy is for medical decision making only. As of November 2022 testing method has changed, this may include reference ranges. TROPONIN I HIGH SENSITIVITY 2024-08-08 21:40 [facility] 12.2 ng/l A HIGH SENSITIVITY TROPONIN result of >= 14.9 ng/L for females is considered POSITIVE. A HIGH SENSITIVITY TROPONIN result of >= 19.8 ng/L for males is considered POSITIVE. A HIGH SENSITIVITY TROPONIN result of >= 17.9 ng/L for unspecified is considered POSITIVE. ALKALINE PHOSPHATASE 2024-08-08 21:40 [facility] 124 iu/l As of November 2022 testing method has changed, this may include reference ranges. BUN - BLOOD UREA NITROGEN 2024-08-08 21:40 [facility] 13 mg/dl As of November 2022 testing method has changed, this may include reference ranges. SODIUM 2024-08-08 21:40 [facility] 136 mmol/l As of November 2022 testing method has changed, this may include reference ranges. CARBON DIOXIDE - CO2 2024-08-08 21:40 [facility] 16 mmol/l As of November 2022 testing method has changed, this may include reference ranges. RBC MORPHOLOGY (MULTIPLE) 2024-08-08 21:40 [facility] 2+ ANISOCYTOSIS (missing) (missing) ALBUMIN 2024-08-08 21:40 [facility] 2.2 g/dl As of November 2022 testing method has changed, this may include reference ranges. NEUTROPHILS # (AUTO) 2024-08-08 21:40 [facility] 2.5 10 3/ul (missing) RED CELL DISTRIBUTION WIDTH 2024-08-08 21:40 [facility] 24.4 % (missing) HCT - HEMATOCRIT 2024-08-08 21:40 [facility] 25.3 % (missing) MEAN CORPUSCULAR HEMOGLOBIN 2024-08-08 21:40 [facility] 28.1 pg (missing) RED BLOOD COUNT 2024-08-08 21:40 [facility] 3.10 10 6/ul (missing) GLOBULIN 2024-08-08 21:40 [facility] 3.9 g/dl (missing) MEAN CORPUSCULAR HGB CONC 2024-08-08 21:40 [facility] 34.4 g/dl (missing) GFR - MDRD 2024-08-08 21:40 [facility] 36 (missing) Social History date description facility
[2024-09-10 10:59] LABS: BASOPHILS % (AUTO) 0.5 %; EOSINOPHILS # (AUTO) 0.1 10^3/uL (0.0-0.7); EOSINOPHILS % (AUTO) 2.7 %; HCT - HEMATOCRIT 20.1 % (42.0-52.0); LYMPHOCYTES # (AUTO) 0.6 10^3/uL (1.5-3.5); LYMPHOCYTES % (AUTO) 15.9 %; MEAN CORPUSCULAR HEMOGLOBIN 31.7 pg (27.0-31.0); MEAN CORPUSCULAR HGB CONC 34.3 g/dL (32.0-36.0); MEAN CORPUSCULAR VOLUME 92.2 fL (80.0-94.0); MEAN PLATELET VOLUME 10.4 fL (7.4-11.4); MONOCYTES # (AUTO) 0.6 10^3/uL (0.0-1.0); MONOCYTES % (AUTO) 16.2 %; NEUTROPHILS # (AUTO) 2.4 10^3/uL (1.5-6.6); NEUTROPHILS % (AUTO) 63.6 %; PLT - PLATELET COUNT 46 10^3/uL (130-450); RED BLOOD COUNT 2.18 10^6/uL (4.70-6.10); RED CELL DISTRIBUTION WIDTH 27.8 % (12.0-15.0); WHITE BLOOD COUNT 3.7 x10^3/uL (4.8-10.8)
[2024-09-10 11:05] LABS: HGB - HEMOGLOBIN 6.9 g/dL (14.0-18.0); SLIDE REVIEW? Indicated
[2024-09-10] MEDS: SODIUM CHLORIDE 0.9% 1,000 ML IV STA (11:11)
--- NOTE | 2024-09-10 11:30 | XRAY Report ---
PROCEDURE: XR Chest 1V INDICATIONS: near syncope TECHNIQUE: One view of the chest was acquired. COMPARISON: Chest x-ray 03/30/2024. CTA chest 05/02/2024. FINDINGS: Surgical changes and devices: None. Lungs and pleura: Central pulmonary vascular congestion. Left basilar retrocardiac opacification. Sm all left pleural effusion. Mediastinum: Mediastinal contours appear normal. Heart is mildly enlarged. Bones and chest wall: No suspicious bony lesions. Overlying soft tissues appear unremarkable. IMPRESSION: Small left pleural effusion. Left basilar retrocardiac density which could represent atelectasis or pneumonia. Cardiomegaly central pulmonary vascular congestion concerning for CHF/fluid overload. Reviewed by: Bertha Fam MD, PhD on 09/10/2024 11:28 AM PDT Approved by: Bertha Fam MD, PhD on 09/10/2024 11:28 AM PDT Station ID: [id number]
[2024-09-10 11:32] LABS: RBC MORPHOLOGY (MULTIPLE) 4+ ANISOCYTOSIS (NORMAL)
[2024-09-10 11:40] LABS: ALBUMIN 1.9 g/dL (3.2-5.5); ALBUMIN/GLOBULIN RATIO 0.5 (1.0-2.2); BILIRUBIN,TOTAL 7.1 mg/dL (0.2-1.0); CALCIUM 8.4 mg/dL (8.5-10.3); CREATININE 1.8 mg/dL (0.6-1.3); POTASSIUM 4.2 mmol/L (3.5-4.5); TOTAL PROTEIN 5.6 g/dL (6.4-8.9)
[2024-09-10] MEDS: ALBUMIN 25% 12.5 GM/50 ML VIAL IV STA (11:47)
[2024-09-10 12:02] LABS: B. PARAPERTUSSIS- RESP PCR PAN NOT DETECTED; B. PERTUSSIS- RESP PCR PANEL NOT DETECTED; C. PNEUMONIAE- RESP PCR PANEL NOT DETECTED; CORONAVIRUS 229E-RESP PCR NOT DETECTED; CORONAVIRUS HKU1-RESP PCR NOT DETECTED; CORONAVIRUS NL63-RESP PCR NOT DETECTED; CORONAVIRUS OC43-RESP PCR NOT DETECTED; HUMAN METAPNEUMOVIRUS NOT DETECTED; INFLUENZA A- RESP PCR PANEL NOT DETECTED; INFLUENZA B - RESP PCR PANEL NOT DETECTED; M. PNEUMONIAE- RESP PCR PANEL NOT DETECTED; PARAINFLUENZA VIRUS 1 NOT DETECTED; PARAINFLUENZA VIRUS 2 NOT DETECTED; PARAINFLUENZA VIRUS 4 NOT DETECTED; RHINOVIRUS/ENTEROVIRUS NOT DETECTED; RSV- RESP PCR PANEL NOT DETECTED; SARS-CoV-2 -RESP PCR PANEL NOT DETECTED
[2024-09-10 12:16] LABS: INR 3.2 (0.8-1.2); PT - PROTHROMBIN TIME 34.7 secs (9.9-12.6)
[2024-09-10] MEDS: ONDANSETRON 4 MG/2 ML VIAL IVP STA (12:37)
[2024-09-10] MEDS: NOREPINEPHRINE/0.9 % NS 8 MG/250 ML BAG IV SCH (12:39)
[2024-09-10 13:32] LABS: BILIRUBIN,URINE NEGATIVE (NEGATIVE); GLUCOSE, URINE (UA) NEGATIVE (NEGATIVE); KETONES,URINE (UA) NEGATIVE (NEGATIVE); LEUKOCYTE ESTERASE, URINE NEGATIVE (NEGATIVE); NITRITE,URINE NEGATIVE (NEGATIVE); OCCULT BLOOD,URINE NEGATIVE (NEGATIVE); PROTEIN,URINE NEGATIVE (NEGATIVE); UROBILINOGEN,URINE 0.2 (NORMAL) E.U./dL (NORMAL)
[2024-09-10 13:33] LABS: CLARITY,URINE CLEAR (CLEAR)
[2024-09-10] MEDS: AZITHROMYCIN INJ 500 MG in SODIUM CHLORIDE 0.9% 250 ML IV STA (13:46)
[2024-09-10] MEDS: cefTRIAXone 2 GM VIAL IVP STA (13:46)
--- NOTE | 2024-09-10 13:57 | XRAY Report ---
PROCEDURE: XR Chest for Line Placement INDICATIONS: central line placement TECHNIQUE: One view of the chest was acquired. COMPARISON: 09/10/2024 at 1109 hours. FINDINGS: Surgical changes and devices: Right central venous catheter tip projects to the distal SVC.. Lungs and pleura: Density in the left lung base is likely a combination of atelectasis versus consol idation and pleural fluid. Mediastinum: Mediastinal contours appear normal. Heart size is normal. Bones and chest wall: No suspicious bony lesions. Overlying soft tissues appear unremarkable. IMPRESSION: Central venous catheter tip projects in the SVC. No pneumothorax. Left basilar density likely representing a combination of atelectasis versus consolidation plus pleur al fluid. Reviewed by: Leno Marino MD on 09/10/2024 1:55 PM PDT Approved by: Leno Marino MD on 09/10/2024 1:55 PM PDT Station ID: [id number]
--- NOTE | 2024-09-10 15:26 | HISTORY & PHYSICAL EXAMINATION ---
Chief Complaint Chief Complaint Chief Complaint: Near syncope History of Present Illness Admitted From Admitted From:: Home History Obtained From Records Reviewed: [facility] records, outside records History obtained from: Patient Exam Limitations: None History of Present Illness HPI Comment/Other: Patient is a 68-year-old male with history of decompensated cirrhosis, prostate adenocarcinoma, recent episode of melena s/p AVM ablation in 06/27/2024 who presented for a near syncope event. Patient presented to a walk-in clinic for lab draw, but when he was called back, he got very lightheaded and dizzy and almost fell over. He states that this happens occasionally, when he stands up rapidly. He denies any fevers or chills. He does state that he has had some worsening abdominal distention over the last few months. The last time he had a paracentesis was at his last hospitalization at [facility], where they remove 9 L. He has no abdominal tenderness. He has no cough. He does feel lightheaded on occasion with standing. He does endorse some bright red blood in his stool, in the toilet bowl, and with wiping. States that this happened a few times since discharge. His discharge summary was reviewed from [facility] on 06/27/2024. He presented with decompensated cirrhosis and hematochezia. He underwent a diagnostic and therapeutic paracentesis with 3 L of volume removed. His discharge standing weight was 238 pounds. He is 242 pounds today. His hospital course was notable for melena. His hemoglobin was between 8 and 9 at that time. GI was consulted, and colonoscopy revealed rectal atrial venous malformation that was treated with argon plasma coagulation. EGD showed small esophageal varices not amenable to banding. He did not require any transfusion at that time. Meds/Allgy Home Medications Ambulatory Orders Medication Instructions Recorded Confirmed simvastatin 40 mg tablet 40 mg PO QPM 05/02/24 09/10/24 folic acid 1 mg tablet 1 mg PO QDAY 07/04/24 09/10/24 furosemide 40 mg tablet 40 mg PO QDAY 07/04/24 09/10/24 multivitamin 1 tab PO QPM 07/04/24 09/10/24 pantoprazole 40 mg tablet,delayed 40 mg PO BID 07/04/24 09/10/24 release spironolactone 100 mg tablet 100 mg PO QDAY 07/04/24 09/10/24 thiamine mononitrate (vit B1) 100 100 mg PO QDAY 07/04/24 09/10/24 mg tablet Allergies Allergies Allergy/AdvReac Type Severity Reaction Status Date / Time grass pollen Allergy Mild Sneezing, Verified 09/10/24 10:49 runny nose, itchy eyes PFSH Active Problems All Active Problems (Updated 09/10/24 @ 17:00 by Susan Fuller MD) Elevated bilirubin (Acute) Lactic acidosis (Acute) Acute renal failure (Acute) Pancytopenia (Acute) Acute hypotension (Acute) End stage liver disease (Acute) Severe anemia (Acute) Septic shock (Acute) Pneumonia (Acute) Hypotension (Acute) Near syncope (Acute) Status post abdominal paracentesis (Acute) Ascites due to alcoholic hepatitis (Acute) Obesity (BMI 30-39.9) (Acute) History of lower GI bleeding (Acute) Alcoholism (Chronic) BPH with elevated PSA (Chronic 03/04/20) Prostate cancer (Chronic 01/12/23) Essential hypertension (Chronic 01/12/23) Alcoholic cirrhosis of liver (Chronic 11/26/20) Dyslipidemia (Chronic 05/22/1959) 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) BMI 40.0-44.9, adult (Chronic 09/01/22) Medical History Medical History Arthritis of right knee (03/04/21) Chest pain (11/15/20) Allergic dermatitis (02/18/14) Hyperbilirubinemia (11/26/20) Internal derangement of left knee (06/30/17) Epicondylitis, lateral, right (03/25/15) Thrombocytopenia (11/26/20) Dark stools Degenerative joint disease of knee, right Reflux esophagitis Family history of colon cancer (08/31/20) Family history of cirrhosis of liver (11/26/20) Helicobacter pylori gastritis (10/23/06) Surgical History Surgical History History of colonoscopy History of endoscopy (~2020) EGD/Colonoscopy ([place]) History of Bria fundoplication (~2006) laparoscopic Family History Family History Mother High blood pressure Cerebral hemorrhage Sister Colon cancer Brother Prostate cancer Father No problems noted. Social History Social History Smoking Status: Never smoker Do you dip or chew tobacco?: No Do you vape?: No Living arrangement: At home Marital Status: Living Condition: With spouse/s.o. Relationship: Level: Assisted Home Mobility Equipment: Cane Do you feel safe in your home environment?: Yes Suffered physical, verbal, emotional, or financial abuse?: No History of Abuse: No ETOH Use: None and Wine Frequency: Daily Number of Amount/day: 1 Substance Use: denies use Review of Systems Constitutional Reports: Fatigue, Weakness, Poor appetite and Weight gain; Denies: Fever, Chills, Malaise, Diaphoresis or Night sweats Eyes Denies: Pain, Irritation, Blurry vision or Floaters Ears, nose, mouth, and throat Denies: Ear pain, Ear discharge, Hearing loss or Neck pain Cardiovascular Reports: Syncope and lightheadedness; Denies: Irregular heart rate, chest pain, palpitations, edema, swelling of feet/ankles, shortness of breath with exertion or shortness of breath when lying down Respiratory Reports: Cough (dry); Denies: Shortness of breath or Sputum production Gastrointestinal Reports: Abdominal distention and Bloating; Denies: Abdominal pain, Nausea, Vomiting, Poor appetite, Bile emesis, Heartburn, Diarrhea, Constipation or Belching Genitourinary Denies: Painful urination, Flank pain, Incontinence, Urinary frequency or Urinary urgency Musculoskeletal Denies: Back pain, Neck pain, Extremity pain, Extremity swelling or Joint pain Integumentary/Breast Denies: Rash, Itching, Redness, Skin pain, Skin tenderness or Skin swelling Neurological Reports: General weakness; Denies: Headache, Focal weakness, Weakness in extremities or Numbness in extremities Psychiatric Denies: Depression, Anxiety or Mood swings Endocrine Reports: Fatigue; Denies: Excessive urination, Excessive thirst or Polyphagia Hematologic/Lymphatic Reports: Anemia, Easy bruising and Easy bleeding Prior Level of Functionality: Fully indpendent of ADLs. Exam Exam Vital Signs: Vital Signs x48h Temp Pulse Pulse Resp BP BP BP 09/10/24 17:00 91 16 84/60 L 09/10/24 16:24 97.9 F 86 18 90/59 L 09/10/24 16:01 87 18 92/51 L 09/10/24 15:45 86 16 93/57 L 09/10/24 15:20 97.7 F 84 15 92/53 L 09/10/24 15:02 97.7 F 86 22 97/52 L 09/10/24 14:40 97.3 F L 85 20 93/53 L 09/10/24 14:36 86 17 93/65 09/10/24 14:27 97.3 F L 88 15 88/50 L 09/10/24 14:21 85 15 87/47 L 09/10/24 14:20 97.2 F L 86 17 87/47 L 09/10/24 14:02 89 14 87/47 L 09/10/24 14:01 91 16 92/51 L 09/10/24 13:52 90 81/45 L 09/10/24 13:50 91 20 92/57 L 09/10/24 13:22 90 14 65/38 L 09/10/24 13:17 93 18 72/42 L 09/10/24 12:59 88 16 75/44 L 09/10/24 12:55 74 24 89/51 L 09/10/24 12:47 74 20 90/54 L 09/10/24 12:45 75 16 77/55 L 09/10/24 12:30 89 16 65/36 L 09/10/24 12:10 75 16 75/50 L 09/10/24 12:00 71 16 79/50 L 09/10/24 11:50 73 76/45 L 09/10/24 11:40 75 70/45 L 09/10/24 11:30 70 68/45 L 09/10/24 11:20 85 72/45 L 09/10/24 11:08 71 24 74/44 L 09/10/24 10:55 68 20 62/41 L 09/10/24 10:49 97.2 F L 69 24 58/39 L Pulse Ox 09/10/24 17:00 95 09/10/24 16:24 95 09/10/24 16:01 93 09/10/24 15:45 98 09/10/24 15:20 94 09/10/24 15:02 94 09/10/24 14:40 95 09/10/24 14:36 95 09/10/24 14:27 95 09/10/24 14:21 95 09/10/24 14:20 95 09/10/24 14:02 95 09/10/24 14:01 96 09/10/24 13:52 96 09/10/24 13:50 96 09/10/24 13:22 96 09/10/24 13:17 96 09/10/24 12:59 94 09/10/24 12:55 94 09/10/24 12:47 95 09/10/24 12:45 95 09/10/24 12:30 95 09/10/24 12:10 94 09/10/24 12:00 94 09/10/24 11:50 94 09/10/24 11:40 93 09/10/24 11:30 93 09/10/24 11:20 93 09/10/24 11:08 96 09/10/24 10:55 92 09/10/24 10:49 93 Constitutional normal general appearance, no apparent distress, abnormal body habitus (obese) and alert HENMT normocephalic and head/scalp atraumatic Eyes PERRL, EOMs intact bilaterally and conjunctivae normal Neck/C-Spine visual inspection normal, trachea midline and cervical spine nontender Lymph no lymphadenopathy noted Chest inspection of chest normal Respiratory breath sounds equal bilaterally, normal respiratory effort, clear to auscultation bilaterally, no wheezes and no rales Cardiovascular normal heart rate noted, regular rhythm noted, no rub and no murmur Gastrointestinal abdomen abnormal to inspection, abdomen soft to palpation, nontender to palpation, nontender to percussion, distended (Distended, + fluid wave, tympanic to percussion), no hepatosplenomegaly and no masses Genitourinary no CVA tenderness, bladder normal to palpation and external appearance normal Back/Pelvis spine normal to inspection and no thoracic spine tenderness Extremities normal to inspection, no tenderness and full ROM Neurology no movement abnormality noted Psychiatry mental status grossly normal, oriented x3, thought process normal, cooperative and affect normal Skin no rash, no lesions and jaundice noted (jaundice noted, scleral icterus ) Conclusion/Plan Problem List (1) Acute hypotension: Plan: Patient has a baseline of hypotension; was worsened, and lead to a presyncopal event. Patient had been fasting prior to getting his labs drawn, which may have played a component of it. More likely, this is a result of worsening cirrhosis. He has advanced portal hypertension, which is leading to systemic vasodilation and hypotension. Patient also has had a drop in his hemoglobin, and endorses some bright red blood per rectum. Per records, he had an AVM in 07/16. Stool guaiac is pending. Will trend H&H. Received 1 unit PRBCs. If continues to drop, or bleed, will consult general surgery. Patient with no abdominal tenderness; diagnostic tap reveals minimal WBCs, PMN percentage is still pending, but overall WBCs are less than 50. Less concern for SBP. Continue patient's prophylactic Bactrim daily. In setting of worsening hypotension, as well as diuretic resistant ascites, will start patient on midodrine 5 mg 3 times daily. Continue Lasix and spironolactone when blood pressure improves. (2) Ascites due to alcoholic hepatitis: Plan: Patient states that he has received a few therapeutic paracentesis for worsening abdominal distention in the last few months, 1 requiring up to 9 L of fluid removed. Will continue to trend INR, platelets, and consult radiology for therapeutic paracentesis. Child Silva score of 13 points; life expectancy of 1-3 years. MELD score of 34 with 52.6% mortality rate. Maddrey Discriminant Function is 111.5. Would benefit from steroids, prednisolone 40mg daily. Held at this time due to possible active GI bleed. Will re-assess with clinical progression. (3) Severe anemia: Plan: Patient with steadily decreasing hemoglobin. Will transfuse 1 unit PRBCs today. Continue home oral Protonix 40 mg twice a day. More likely lower GI bleed. Continue clear liquids at this time. Will continue to trend H&H every 8 hours. If continues to drop, or if has further episodes of bright red blood per rectum, will consult general surgery. Had a colonoscopy and EGD done in 07/16; this revealed a AVM, as well as multiple small esophageal varices that were too small for banding. (4) Acute renal failure: Plan: Could be attributed to hepatorenal syndrome in setting of fluid overload with significant ascites. Continue IV Lasix when able. Received some fluids for hypotension. Qualifiers: Acute renal failure type: unspecified Qualified Code(s): N17.9 - Acute kidney failure, unspecified (5) Elevated bilirubin: Plan: Likely due to congestion in setting of hepatopathy. No concern for acute cholecystitis at this time. No fevers, pain, white count. Will continue to trend; if worsens, will get ultrasound. (6) Lactic acidosis: Plan: Likely due to hypotension, as well as inability to clear lactic acid due to biotic impairment. (7) Prostate cancer: Plan: Patient currently not on any active treatment. Has a follow-up with oncology scheduled. (8) Essential hypertension: Plan: Former history of hypertension, now hypotensive. Likely due to cirrhosis. Continue midodrine. (9) Dyslipidemia: Plan: Statin held due to elevation of LFTs. (10) Pancytopenia: Plan: Likely direct bone marrow suppression due to chronic alcohol use. Anemia may be due to GI bleeding as stated above. Lab Results Lab results reviewed: Yes 09/10/24 10:52 09/10/24 10:52 Diagnostic Imaging Results Diagnostic Imaging Results: positive Final report reviewed EKG Results EKG Interpreted Independently: Yes Core Measures Anticipated LOS I expect patient to be DC'd or transferred within 96 hours.: Yes Issues Hospital Issues and Management Plan: None anticipated. DVT/VTE - Prophylaxis VTE/DVT Device ordered at admit?: No Not Ordered - Medical Reason: Contraindicated VTE/DVT Prophylaxis med ordered at admit?: No Not Ordered - Medical Reason: Contraindicated
--- NOTE | 2024-09-10 15:31 | ED Physician Documentation ---
History of Present Illness Stated complaint Stated Complaint: NEAR SYNCOPE Chief complaint Chief Complaint: Neuro History obtained from History obtained from: Patient Additonal information Additional information: Patient comes to the emergency department with chief complaint of Near syncopal episode in the clinic. He was at the walk-in clinic for fasting labs he says and when he got up from the chair to walk to the lab, he felt lightheaded and nearly fainted. He collapsed but was able to collapse back into the chair and did not get hurt. He states that he has had quite a few episodes like this previously and that has been going on for some months. He has been told that it is because of his liver failure. The patient states that he continued to feel lightheaded and still feels a little lightheaded laying in the bed. Medics report that the patient's systolic in the clinic was in the 50s. They have given him 900 cc of IV fluid and he is still somewhat hypotensive. Patient denies fevers recently. No shortness of breath or cough. He has chronic ascites and states that it has been increasing slowly. States his abdomen feels uncomfortable like it is very full but he denies abdominal pain. No other complaints at this time. He does not have any underlying cardiac issues that he knows of. He follows with [facility] for his end- stage liver disease. Meds/Allgy Home Medications Ambulatory Orders Medication Instructions Recorded Confirmed simvastatin 40 mg tablet 40 mg PO QPM 05/02/24 09/10/24 folic acid 1 mg tablet 1 mg PO QDAY 07/04/24 09/10/24 furosemide 40 mg tablet 40 mg PO QDAY 07/04/24 09/10/24 multivitamin 1 tab PO QPM 07/04/24 09/10/24 pantoprazole 40 mg tablet,delayed 40 mg PO BID 07/04/24 09/10/24 release spironolactone 100 mg tablet 100 mg PO QDAY 07/04/24 09/10/24 thiamine mononitrate (vit B1) 100 100 mg PO QDAY 07/04/24 09/10/24 mg tablet Allergies Allergies Allergy/AdvReac Type Severity Reaction Status Date / Time grass pollen Allergy Mild Sneezing, Verified 09/10/24 10:49 runny nose, itchy eyes PFSH Active Problems All Active Problems (Updated 09/10/24 @ 17:00 by Susan Fuller MD) Elevated bilirubin (Acute) Lactic acidosis (Acute) Acute renal failure (Acute) Pancytopenia (Acute) Acute hypotension (Acute) End stage liver disease (Acute) Severe anemia (Acute) Septic shock (Acute) Pneumonia (Acute) Hypotension (Acute) Near syncope (Acute) Status post abdominal paracentesis (Acute) Ascites due to alcoholic hepatitis (Acute) Obesity (BMI 30-39.9) (Acute) History of lower GI bleeding (Acute) Alcoholism (Chronic) BPH with elevated PSA (Chronic 03/04/20) Prostate cancer (Chronic 01/12/23) Essential hypertension (Chronic 01/12/23) Alcoholic cirrhosis of liver (Chronic 11/26/20) Dyslipidemia (Chronic 05/22/1959) 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) BMI 40.0-44.9, adult (Chronic 09/01/22) Medical History Medical History Arthritis of right knee (03/04/21) Chest pain (11/15/20) Allergic dermatitis (02/18/14) Hyperbilirubinemia (11/26/20) Internal derangement of left knee (06/30/17) Epicondylitis, lateral, right (03/25/15) Thrombocytopenia (11/26/20) Dark stools Degenerative joint disease of knee, right Reflux esophagitis Family history of colon cancer (08/31/20) Family history of cirrhosis of liver (11/26/20) Helicobacter pylori gastritis (10/23/06) Surgical History Surgical History History of colonoscopy History of endoscopy (~2020) EGD/Colonoscopy ([place]) History of Bria fundoplication (~2006) laparoscopic Family History Family History Mother High blood pressure Cerebral hemorrhage Sister Colon cancer Brother Prostate cancer Father No problems noted. Social History Social History Smoking Status: Never smoker Do you dip or chew tobacco?: No Do you vape?: No Living arrangement: At home Marital Status: Living Condition: With spouse/s.o. Relationship: Level: Assisted Home Mobility Equipment: Cane Do you feel safe in your home environment?: Yes Suffered physical, verbal, emotional, or financial abuse?: No History of Abuse: No ETOH Use: None and Wine Frequency: Daily Number of Amount/day: 1 Substance Use: denies use Exam Exam Vital Signs: Vital Signs x48h Temp Pulse Pulse Resp BP BP Pulse Ox 09/10/24 15:45 86 16 93/57 L 98 09/10/24 15:20 36.5 C 84 15 92/53 L 94 09/10/24 15:02 36.5 C 86 22 97/52 L 94 09/10/24 14:40 36.3 C L 85 20 93/53 L 95 09/10/24 14:36 86 17 93/65 95 09/10/24 14:27 36.3 C L 88 15 88/50 L 95 09/10/24 14:21 85 15 87/47 L 95 09/10/24 14:20 36.2 C L 86 17 87/47 L 95 09/10/24 14:02 89 14 87/47 L 95 09/10/24 14:01 91 16 92/51 L 96 09/10/24 13:52 90 81/45 L 96 09/10/24 13:50 91 20 92/57 L 96 09/10/24 13:22 90 14 65/38 L 96 09/10/24 13:17 93 18 72/42 L 96 09/10/24 12:59 88 16 75/44 L 94 09/10/24 12:55 74 24 89/51 L 94 09/10/24 12:47 74 20 90/54 L 95 09/10/24 12:45 75 16 77/55 L 95 Constitutional normal general appearance and no apparent distress Alert, conversant. HENMT normocephalic, head/scalp atraumatic, external nose normal and oral mucous membranes normal Eyes EOMs intact bilaterally Icteric Neck/C-Spine visual inspection normal and supple Respiratory breath sounds equal bilaterally, normal respiratory effort and clear to auscultation bilaterally Cardiovascular normal heart rate noted, regular rhythm noted and no edema Gastrointestinal abdomen normal to inspection, abdomen soft to palpation and nontender to palpation Distended, appears to have ascites, the abdomen is soft and nontender. Genitourinary no CVA tenderness Extremities normal to inspection Neurology Alert, grossly intact Psychiatry mental status grossly normal Skin skin color normal Results Vitals Vitals: Vital Signs - 24 hr 09/10/24 10:49 09/10/24 10:55 09/10/24 11:08 Temperature 36.2 C L Temperature Source Temporal Artery Scan Pulse Rate 69 68 71 Pulse Rate [Monitoring electrodes] Respiratory Rate 24 20 24 Blood Pressure 58/39 L 62/41 L 74/44 L Blood Pressure [Right Brachial artery] O2 Saturation 93 92 96 O2 Source Room air Room air Room air Sedation scale Pain Intensity 0 0 0 09/10/24 11:20 09/10/24 11:30 09/10/24 11:40 Temperature Temperature Source Pulse Rate 85 70 75 Pulse Rate [Monitoring electrodes] Respiratory Rate Blood Pressure 72/45 L 68/45 L 70/45 L Blood Pressure [Right Brachial artery] O2 Saturation 93 93 93 O2 Source Room air Room air Sedation scale Pain Intensity 0 0 0 09/10/24 11:50 09/10/24 12:00 09/10/24 12:10 Temperature Temperature Source Pulse Rate 73 71 75 Pulse Rate [Monitoring electrodes] Respiratory Rate 16 16 Blood Pressure 76/45 L 79/50 L 75/50 L Blood Pressure [Right Brachial artery] O2 Saturation 94 94 94 O2 Source Room air Room air Sedation scale Pain Intensity 0 0 0 09/10/24 12:30 09/10/24 12:45 09/10/24 12:47 Temperature Temperature Source Pulse Rate 89 75 74 Pulse Rate [Monitoring electrodes] Respiratory Rate 16 16 20 Blood Pressure 65/36 L 77/55 L 90/54 L Blood Pressure [Right Brachial artery] O2 Saturation 95 95 95 O2 Source Room air Room air Sedation scale Pain Intensity 0 0 0 09/10/24 12:55 09/10/24 12:59 09/10/24 13:17 Temperature Temperature Source Pulse Rate 74 88 93 Pulse Rate [Monitoring electrodes] Respiratory Rate 24 16 18 Blood Pressure 89/51 L 75/44 L 72/42 L Blood Pressure [Right Brachial artery] O2 Saturation 94 94 96 O2 Source Room air Room air Room air Sedation scale Pain Intensity 0 0 0 09/10/24 13:22 09/10/24 13:50 09/10/24 13:52 Temperature Temperature Source Pulse Rate 90 91 90 Pulse Rate [Monitoring electrodes] Respiratory Rate 14 20 Blood Pressure 65/38 L 92/57 L 81/45 L Blood Pressure [Right Brachial artery] O2 Saturation 96 96 96 O2 Source Room air Room air Nasal cannula Sedation scale Pain Intensity 0 0 0 09/10/24 14:01 09/10/24 14:02 09/10/24 14:20 Temperature 36.2 C L Temperature Source Oral Temporal Artery Scan Pulse Rate 91 89 Pulse Rate [Monitoring electrodes] 86 Respiratory Rate 16 14 17 Blood Pressure 92/51 L 87/47 L Blood Pressure [Right Brachial artery] 87/47 L O2 Saturation 96 95 95 O2 Source Room air Room air Room air Sedation scale 0-Fully awake Pain Intensity 0 0 0 09/10/24 14:21 09/10/24 14:27 09/10/24 14:36 Temperature 36.3 C L Temperature Source Temporal Artery Scan Pulse Rate 85 Pulse Rate [Monitoring electrodes] 88 86 Respiratory Rate 15 15 17 Blood Pressure 87/47 L Blood Pressure [Right Brachial artery] 88/50 L 93/65 O2 Saturation 95 95 95 O2 Source Room air Room air Room air Sedation scale 0-Fully awake 0-Fully awake Pain Intensity 0 0 0 09/10/24 14:40 09/10/24 15:02 09/10/24 15:20 Temperature 36.3 C L 36.5 C 36.5 C Temperature Source Temporal Artery Scan Temporal Artery Scan Temporal Artery Scan Pulse Rate 85 86 84 Pulse Rate [Monitoring electrodes] Respiratory Rate 20 22 15 Blood Pressure 93/53 L 97/52 L 92/53 L Blood Pressure [Right Brachial artery] O2 Saturation 95 94 94 O2 Source Room air Room air Room air Sedation scale Pain Intensity 0 0 0 09/10/24 15:45 Temperature Temperature Source Pulse Rate 86 Pulse Rate [Monitoring electrodes] Respiratory Rate 16 Blood Pressure 93/57 L Blood Pressure [Right Brachial artery] O2 Saturation 98 O2 Source Room air Sedation scale Pain Intensity 0 Oxygen O2 Source Room air Labs Labs: Microbiology 09/10/24 15:06 Body Fluid Culture - Preliminary Ascities Fluid Laboratory Tests 09/10/24 09/10/24 09/10/24 10:52 11:00 11:40 WBC 3.7 L RBC 2.18 L Hgb 6.9 L* Hct 20.1 L MCV 92.2 MCH 31.7 H MCHC 34.3 RDW 27.8 H Plt Count 46 L MPV 10.4 Neut # (Auto) 2.4 Lymph # (Auto) 0.6 L [place] # (Auto) 0.6 Eos # (Auto) 0.1 Baso # (Auto) 0.0 Absolute Nucleated RBC 0.00 Nucleated RBC % 0.0 Manual Slide Review Indicated RBC Morph Micro Appear 4+ ANISOCYTOSIS PT 34.7 H INR 3.2 H Sodium 132 L Potassium 4.2 Chloride 106 Carbon Dioxide 18 L Anion Gap 8.0 BUN 15 Creatinine 1.8 H Estimated GFR (MDRD) 38 L Glucose 108 H Lactic Acid 3.8 H* Calcium 8.4 L Total Bilirubin 7.1 H AST 63 H ALT 30 Alkaline Phosphatase 89 Total Protein 5.6 L Albumin 1.9 L Globulin 3.7 Albumin/Globulin Ratio 0.5 L Lipase 65 Urine Color Urine Clarity Urine pH Ur Specific [place] Urine Protein Urine Glucose (UA) Urine Ketones Urine Occult Blood Urine Nitrite Urine Bilirubin Urine Urobilinogen Ur Leukocyte Esterase Ur Microscopic Review Urine Culture Comments Fluid Source Fluid Color Fluid Clarity Fluid WBC Fluid RBC Fluid Neutrophils % Fluid Lymphocytes % Fluid Monocytes % Fluid Eosinophils % Fluid Macrophages % Fld Mesothelial Cell % Nasal Adenovirus (PCR) NOT DETECTED Nasal B. parapertussis DNA (PCR) NOT DETECTED Nasal Coronavir 229E PCR NOT DETECTED Nasal Coronavir HKU1 PCR NOT DETECTED Nasal Coronavir NL63 PCR NOT DETECTED Nasal Coronavir OC43 PCR NOT DETECTED Nasal Enterovir/Rhinovir PCR NOT DETECTED Nasal Influenza B PCR NOT DETECTED Nasal Influenza A PCR NOT DETECTED Nasal Parainfluen 1 PCR NOT DETECTED Nasal Parainfluen 2 PCR NOT DETECTED Nasal Parainfluen 3 PCR NOT DETECTED Nasal Parainfluen 4 PCR NOT DETECTED Nasal RSV (PCR) NOT DETECTED Nasal B.pertussis DNA PCR NOT DETECTED Nasal C.pneumoniae (PCR) NOT DETECTED Zev Human Metapneumo PCR NOT DETECTED Nasal M.pneumoniae (PCR) NOT DETECTED Nasal SARS-CoV-2 (PCR) NOT DETECTED Blood Type B POSITIVE Antibody Screen NEGATIVE Crossmatch IS Only See Detail 09/10/24 09/10/24 13:15 15:06 WBC RBC Hgb Hct MCV MCH MCHC RDW Plt Count MPV Neut # (Auto) Lymph # (Auto) [place] # (Auto) Eos # (Auto) Baso # (Auto) Absolute Nucleated RBC Nucleated RBC % Manual Slide Review RBC Morph Micro Appear PT INR Sodium Potassium Chloride Carbon Dioxide Anion Gap BUN Creatinine Estimated GFR (MDRD) Glucose Lactic Acid Calcium Total Bilirubin AST ALT Alkaline Phosphatase Total Protein Albumin Globulin Albumin/Globulin Ratio Lipase Urine Color YELLOW Urine Clarity CLEAR Urine pH 6.0 Ur Specific [place] <=1.005 Urine Protein NEGATIVE Urine Glucose (UA) NEGATIVE Urine Ketones NEGATIVE Urine Occult Blood NEGATIVE Urine Nitrite NEGATIVE Urine Bilirubin NEGATIVE Urine Urobilinogen 0.2 (NORMAL) Ur Leukocyte Esterase NEGATIVE Ur Microscopic Review NOT INDICATED Urine Culture Comments NOT INDICATED Fluid Source PERITONEAL Fluid Color YELLOW Fluid Clarity HAZY Fluid WBC 49 Fluid RBC < [id number] Fluid Neutrophils % 7 Fluid Lymphocytes % 34 Fluid Monocytes % 10 Fluid Eosinophils % 1 Fluid Macrophages % 19 Fld Mesothelial Cell % 28 Nasal Adenovirus (PCR) Nasal B. parapertussis DNA (PCR) Nasal Coronavir 229E PCR Nasal Coronavir HKU1 PCR Nasal Coronavir NL63 PCR Nasal Coronavir OC43 PCR Nasal Enterovir/Rhinovir PCR Nasal Influenza B PCR Nasal Influenza A PCR Nasal Parainfluen 1 PCR Nasal Parainfluen 2 PCR Nasal Parainfluen 3 PCR Nasal Parainfluen 4 PCR Nasal RSV (PCR) Nasal B.pertussis DNA PCR Nasal C.pneumoniae (PCR) Zev Human Metapneumo PCR Nasal M.pneumoniae (PCR) Nasal SARS-CoV-2 (PCR) Blood Type Antibody Screen Crossmatch IS Only Procedures Central Line - Major Central Line Preparation: Consent Obtained (verbal) Central line location: Right Subclavian Central line type: Triple lumen Central line aftercare: Chlorhexidine disc placed, Secured, Placement confirmed, No pneumothorax, No complications and Pt tolerated well Paracentesis - Major Preparation: Consent obtained (verbal), Sterile prep and drape and Local anesthesia Location: LLQ Technique: Other (18-g needle) Fluid: Clear, Sent for cell count, Sent for gram stain, Sent for culture, Sent for glucose, Sent for protein, Sent for LDH and Volume - enter cc (20) Aftercare: No complications, Patient tolerated well, Dressing applied and Other (no bleeding or fluid leak) PD Medical Decision Making ED course Complexity details: reviewed old records, reviewed results, considered differential and d/w patient ED course: The patient was much more well-appearing than his numbers would indicate, that he had a blood pressure ranging from 60s to 70s systolic. The patient had already received nearly a liter of IV fluid and route and once this was finished, I started another 1. I did do a broad septic workup on the patient including CBC, ER abdominal panel, blood cultures, lactic acid level, urinalysis, and chest x-ray. CBC showed a Mildly low white blood cell count lactic acid level was elevated at 3.8. His chest x-ray showed possibly some contact consolidation in his left lung. There were also findings consistent with some pulmonary vascular congestion and edema concerning for fluid overload. I did not give any further IV fluids after receiving this reports the patient received a total of 2 L between EMS and here. He did not clinically worsen but his blood pressure really did not respond much to fluids and then when the fluids were done, began to trend down again. I started him on antibiotics for the consolidation found on x-ray and I also ordered Levophed. The patient was also given albumin to try to help prevent further third spacing into his abdomen in the setting of the patient already being hypotensive. The patient's hemoglobin was found to be 6.9 and 2 units of packed red cells were ordered. The development of more severe anemia does appear to be fairly recent thing in the last approximately month. Prior to this, the patient had slight anemia and prior to a year ago, had more or less normal hemoglobins. The patient had minimal derangements in his liver function testing other than a markedly elevated total bilirubin at 7.1. Renal functions were overall at baseline with some chronic renal insufficiency. I have placed a subclavian central line prior to administration of the pressors. The pt's pressure on re-evaluation had stabilized in the 90's systolic, with titration of levophed. I discussed the case with the hospitalist lean consultant, and she has agreed to admit the pt to her service. Critical Care Critical Care Provided: Yes Time(min): 90 Comments: Critical care time was necessary, due to high probability of imminent and life- threatening decline, secondary to septic shock, severe anemia, and concurrent fluid overload in the setting of end-stage liver disease. Time Includes: Direct patient care, Review records, Reassess patient, Document care, Coordinate care, Medical consult and See progress note Data interpretation: Labs, Pulse ox, CXR, Cardiac output and See progress note Procedures excluded from critical care time: Central IV Discharge Plan Discharge Patient Disposition: 66 [facility] DC/Xfer Condition: Critical Clinical Impression: Septic shock, Severe anemia, End stage liver disease Pneumonia Qualifiers: Pneumonia type: due to unspecified organism Laterality: left Lung location: lower lobe of lung Qualified Code(s): J18.9 - Pneumonia, unspecified organism Interventions: ED Admission Assessment Last Done: 09/10/24 16:31
[2024-09-10 15:48] LABS: BF SOURCE PERITONEAL; CC,BF RBC < 300000 /mm^3; CC,BF WBC 49 /mm^3
[2024-09-10 15:49] LABS: BF CLARITY HAZY; BF COLOR YELLOW
--- OUTSIDE RECORDS SUMMARY | 2024-09-10 16:04 | EXTERNAL MEDICAL SUMMARY RPT | Continuity of Care Document ---
Author Organization [facility] Address [address] [place] [id number] Phone Problems date description facility 2024-07-11 00:01 Obesity, unspecified [facility] 2024-07-11 00:01 Alcohol dependence, [facility]complicat ed [facility]24-07-11 00:01 [facility]24-07-11 00:01 Alcoholic hepatitis with ascite s [facility] 2024-07-11 00:01 Alcoholic cirrhosis of liver pr th ascites [facility] 2024-07-11 00:01 Personal history of other diseases of the digestive system [facility] 2024-07-11 00:01 Other specified postprocedural states [facility] 2024-07-18 08:40 Obesity, unspecified [facility] 2024-07-18 08:40 Alcohol dependence, [facility]complicat ed [facility] 2024-07-18 08:40 Essential (primary) hypertensio n [facility] 2024-07-18 08:40 Noninfective gastroenteritis an d colitis, unspecified [facility] 2024-07-18 08:40 Alcoholic hepatitis with ascite s [facility] 2024-07-18 08:40 Alcoholic cirrhosis of liver wi th ascites [facility] 2024-07-18 08:40 Melena [facility] 2024-07-18 08:40 Chest pain, [facility] 2024-07-18 08:40 Nausea with vomiting, unspecifi ed [facility] 2024-07-18 08:40 Hematuria, unspecified [facility] 2024-07-18 08:40 Weakness [facility] 2024-07-18 08:40 Syncope and collapse [facility] 2024-07-18 08:40 Other symptoms and s igns concerning food and fluid intake [facility] 2024-07-18 08:40 Unspecified injury of head, ini tial encounter [facility] 2024-07-18 08:40 Personal history of other diseases of the digestive system [facility] 2024-07-18 08:40 Other specified postprocedural states [facility] 2024-07-31 15:54 Noninfective gastroenteritis an d colitis, unspecified [facility] 2024-07-31 15:54 [facility] 2024-07-31 15:54 Chest pain, unspecified [facility] 2024-07-31 15:54 Nausea with vomiting, unspecifi ed [facility] 2024-07-31 15:54 Hematuria, unspecified [facility] 2024-07-31 15:54 Weakness [facility] 2024-07-31 15:54 [facility]yncope and collapse [facility] 2024-07-31 15:54 Other symptoms and s igns concerning food and fluid intake [facility] 2024-07-31 15:54 Unspecified injury of head, ini [facility]ial [facility] 2024-08-07 07:26 Alcoholic cirrhosis of liver wi th ascites [facility] 2024-08-13 14:21 Other visual disturbances [facility] [employer] [facility] 2024-08-13 14:21 Dizziness and giddiness [facility] 2024-08-13 14:21 Weakness [facility] 2024-08-14 13:47 Unspecified visual disturbance [facility] 2024-08-27 14:42 Other visual disturbances [facility] [employer] [facility] 2024-08-27 14:42 Dizziness and giddiness [facility] 2024-08-27 14:42 Weakness [facility] 2024-09-10 08:48 Malignant neoplasm of prostate [facility] 2024-09-10 08:52 Malignant [facility] of prostate [facility] 2024-09-10 09:21 Malignant neoplasm of prostate [facility] 2024-09-10 09:21 Hyperlipidemia, unspecified [facility] 2024-09-10 09:21 Essential (primary) hypertensio n [facility] 2024-09-10 09:21 Alcoholic cirrhosis of liver [facility] ascites [facility] 2024-09-10 09:21 Body mass index [BMI] 40.0-44.9 , adult [facility] 2024-09-10 10:28 Hypotension, unspecified [facility] 2024-09-10 10:28 Dizziness and giddiness [facility] 2024-09-10 10:49 Malignant neoplasm of prostate [facility] 2024-09-10 10:49 Hyperlipidemia, unspecified [facility] 2024-09-10 10:49 Essential (primary) [facility]ensio n [facility] 2024-09-10 10:49 Hypotension, unspecified [facility] 2024-09-10 10:49 Alcoholic hepatitis with ascite s [facility] 2024-09-10 10:49 Alcoholic cirrhosis of liver [facility]ites [facility] 2024-09-10 10:49 Dizziness and giddiness [facility] 2024-09-10 10:49 Syncope and collapse [facility] 2024-09-10 10:49 Body mass index [BMI] 40.0-44.9 , adult [facility] Results/Labs test date facility value unit notes Result panel 1 GLUCOSE, WHOLE BLOOD 2024-08-08 21:34 [employer] 104 (missing) (missing) Result panel 2 NUCLEATED RED BLOOD CELLS AUTO 2024-08-08 21:40 [employer] 0.0 /100wbc (missing) BASOPHILS # (AUTO) 2024-08-08 21:40 [employer] 0.0 10 3/ul (missing) NRBC ABSOLUTE COUNT (AUTO) 2024-08-08 21:40 [employer] 0.00 x10 3/ul (missing) EOSINOPHILS # (AUTO) 2024-08-08 21:40 [employer] 0.1 10 3/ul (missing) ALBUMIN/GLOBULIN RATIO 2024-08-08 21:40 [employer] 0.6 (missing) (missing) LYMPHOCYTES # (AUTO) 2024-08-08 21:40 [employer] 0.7 10 3/ul (missing) MONOCYTES # (AUTO) 2024-08-08 21:40 [facility] 0.9 10 3/ul (missing) RBC MORPHOLOGY (MULTIPLE) 2024-08-08 21:40 [facility] 1+ HYPOCHROMASIA (missing) (missing) RBC MORPHOLOGY (MULTIPLE) 2024-08-08 21:40 [facility] 1+ OVALOCYTES (missing) (missing) CREATININE 2024-08-08 21:40 [facility] 1.9 mg/dl As of November 2022 testing method has changed, this may include reference ranges. GLUCOSE 2024-08-08 21:40 [facility] 109 mg/dl As of November 2022 testing method has changed, this may include reference ranges. CHLORIDE 2024-08-08 21:40 [facility] 109 mmol/l As of November 2022 testing method has changed, this may include reference ranges. ANION GAP 2024-08-08 21:40 [facility] 11.0 (missing) (missing) ETOH - ETHANOL 2024-08-08 21:40 [facility] 116.7 mg/dl Blood Alcohol Levels Level Sporadic [...] ranges. TROPONIN I HIGH SENSITIVITY 2024-08-08 21:40 [facility] 12.2 ng/l A HIGH SENSITIVITY TROPONIN result of >= 14.9 ng/L for females is considered POSITIVE. A HIGH SENSITIVITY TROPONIN result of >= 19.8 ng/L for males is considered POSITIVE. A HIGH SENSITIVITY TROPONIN result of >= 17.9 ng/L for unspecified is considered POSITIVE. ALKALINE PHOSPHATASE 2024-08-08 21:40 [facility] 124 iu/l As of November 2022 testing method has changed, this may include reference ranges. BUN - BLOOD UREA NITROGEN 2024-08-08 21:40 [facility] 13 mg/dl As of November 2022 testing method has changed, this may include reference ranges. SODIUM 2024-08-08 21:40 [facility] [employer] 136 mmol/l As of November 2022 testing method has changed, this may include reference ranges. CARBON DIOXIDE - CO2 2024-08-08 21:40 [facility] 16 mmol/l As of November 2022 testing method has changed, this may include reference ranges. RBC MORPHOLOGY (MULTIPLE) 2024-08-08 21:40 [facility] 2+ ANISOCYTOSIS (missing) (missing) ALBUMIN 2024-08-08 21:40 [facility] 2.2 g/dl As of November 2022 testing method has changed, this may include reference ranges. NEUTROPHILS # (AUTO) 2024-08-08 21:40 [facility] 2.5 10 3/ul (missing) RED CELL DISTRIBUTION WIDTH 2024-08-08 21:40 [facility] 24.4 % (missing) HCT - HEMATOCRIT 2024-08-08 21:40 [facility] 25.3 % (missing) MEAN CORPUSCULAR HEMOGLOBIN 2024-08-08 21:40 [facility] 28.1 pg (missing) RED BLOOD COUNT 2024-08-08 21:40 [facility] 3.10 10 6/ul (missing) GLOBULIN 2024-08-08 21:40 [facility] 3.9 g/dl (missing) MEAN CORPUSCULAR HGB CONC 2024-08-08 21:40 [facility] 34.4 g/dl (missing) GFR - MDRD 2024-08-08 21:40 [facility] 36 (missing) Social History date description facility
[2024-09-10] MEDS ORDERED: ONDANSETRON ODT 4 MG TABLET TL PRN (16:27)
[2024-09-10] MEDS: SPIRONOLACTONE 25 MG TABLET PO SCH (17:01)
[2024-09-10] MEDS: THIAMINE 100 MG TABLET PO SCH (17:01)
[2024-09-10] MEDS: FOLIC ACID 1 MG TABLET PO SCH (17:01)
[2024-09-10] MEDS: FUROSEMIDE 40 MG TABLET PO SCH (17:01)
[2024-09-10 17:05] LABS: EOSINOPHILS %,BODY FLUID 1 %; LYMPHOCYTES %,BODY FLUID 34 %; MACROPHAGES %,BODY FLUID 19 %; MESOTHELIAL %, BF 28 %; MONOCYTES %,BODY FLUID 10 %; NEUTROPHILS %, BF 7 %
[2024-09-10] MEDS: MIDODRINE 2.5 MG TABLET PO SCH (17:14)
[2024-09-10] MEDS: LIDOCAINE 2%-EPI 1:100000 20 ML MDV SUBQ ONE (18:08)
[2024-09-10] MEDS ORDERED: SODIUM CHLORIDE 0.9% 500 ML IV PRN (19:52)
[2024-09-10] MEDS: SODIUM CHLORIDE FLUSH 0.9% 10 ML SYRINGE IVP PRN (19:53)
[2024-09-10] MEDS: MULTIVITAMIN W/MINERALS TABLET PO SCH (21:24)
[2024-09-10] MEDS: PANTOPRAZOLE 40 MG TABLET PO SCH (21:24)
[2024-09-10] MEDS ORDERED: MIDODRINE 2.5 MG TABLET PO SCH (22:00)
[2024-09-11 04:26] LABS: CALCIUM, IONIZED 1.21 mmol/L (1.09-1.30); VBG PH 7.407 (7.31-7.41)
[2024-09-11 04:28] LABS: BASOPHILS % (AUTO) 0.9 %; EOSINOPHILS # (AUTO) 0.1 10^3/uL (0.0-0.7); EOSINOPHILS % (AUTO) 2.6 %; HCT - HEMATOCRIT 23.1 % (42.0-52.0); LYMPHOCYTES # (AUTO) 0.9 10^3/uL (1.5-3.5); MEAN CORPUSCULAR HEMOGLOBIN 31.6 pg (27.0-31.0); MEAN CORPUSCULAR HGB CONC 34.6 g/dL (32.0-36.0); MEAN CORPUSCULAR VOLUME 91.3 fL (80.0-94.0); MEAN PLATELET VOLUME 10.6 fL (7.4-11.4); MONOCYTES # (AUTO) 0.9 10^3/uL (0.0-1.0); MONOCYTES % (AUTO) 18.7 %; NEUTROPHILS # (AUTO) 2.6 10^3/uL (1.5-6.6); NEUTROPHILS % (AUTO) 57.1 %; PLT - PLATELET COUNT 54 10^3/uL (130-450); RED BLOOD COUNT 2.53 10^6/uL (4.70-6.10); RED CELL DISTRIBUTION WIDTH 26.2 % (12.0-15.0); WHITE BLOOD COUNT 4.5 x10^3/uL (4.8-10.8)
[2024-09-11 04:31] LABS: MAGNESIUM 1.5 mg/dL (1.7-2.3)
[2024-09-11 04:37] LABS: CALCIUM 8.6 mg/dL (8.5-10.3); CREATININE 1.4 mg/dL (0.6-1.3); PHOSPHORUS 3.7 mg/dL (2.5-5.0); POTASSIUM 4.2 mmol/L (3.5-4.5)
[2024-09-11 04:45] LABS: SLIDE REVIEW? Indicated
[2024-09-11 05:12] LABS: PLATELET ESTIMATE, MANUAL DECREASED (<130,000) (NORMAL); PLATELET MORPHOLOGY NORMAL APPEARANCE (NORMAL)
[2024-09-11] MEDS: MAGNESIUM OXIDE 400 MG TABLET PO ONE ×2 (06:09→22:12)
[2024-09-11] MEDS: SULFAMETH/TRIMETH DS 800/160 MG TABLET PO SCH (09:07)
[2024-09-11] MEDS: MIDODRINE 10 MG TABLET PO SCH (09:09)
[2024-09-11 10:08] LABS: pH BODY FLUID 8.6 (Not Estab.)
[2024-09-11 10:25] LABS: INR 3.3 (0.8-1.2); PT - PROTHROMBIN TIME 35.8 secs (9.9-12.6)
--- NOTE | 2024-09-11 12:06 | PROVIDER PROGRESS NOTE ---
Subjective Prog Note Date Prog Note Date: 09/11/24 Prog Note Time: 09:30 Subjective Pt reports feeling: Improved Subjective: Tavon is a 68-year-old male with a history of decompensated cirrhosis, prostate adenocarcinoma, alcohol use disorder and rectal AVM who presented to the ED on 09/10 due to an episode of near-syncope. He reports feeling better today, although he is still hypotensive at 98/59 mmHg. The patient has not had a bowel movement since his and has been on clear liquids only. Ascites are still causing him to feel "bloated" and paracentesis was discussed, pending improvement in his blood pressure. The patient did not seem amenable to a long-term abdominal drain, although this is his second hospitalization this year. His hemoglobin has increased to 8.0 g/dL after being critically low. His kidney function has improved, and his sodium level has normalized. Current Medications Current Medications Current Medications: Current Medications Generic Name Dose Route Start Last Admin Trade Name Freq PRN Reason Stop Dose Admin Folic Acid 1 mg 09/10/24 16:27 09/11/24 09:08 Folic Acid 1 Mg Tablet PO 1 mg DAILY KOMAL Administration Norepinephrine/Sodium Chloride 8 mg in 250 mls @ 15 mls/hr 09/10/24 13:00 09/11/24 02:52 Levophed 8 Mg/250-0.9% Nacl IV 18 mcg/min .[id number] KOMAL 33.75 mls/hr Administration Protocol 8 MCG/MIN Sodium Chloride 500 mls @ 20 mls/hr 09/10/24 19:52 Normal Saline 0.9% IV Q24H PRN TKO RATE Midodrine 10 mg 09/11/24 09:00 09/11/24 09:09 Midodrine 10 Mg Tablet PO 10 mg TID KOMAL Administration Multivitamins/Minerals 1 tab 09/10/24 21:00 09/10/24 21:24 Multivitamin W/Minerals Tablet PO 1 tab QPM KOMAL Administration Ondansetron HCl 4 mg 09/10/24 16:27 Ondansetron Odt 4 Mg Tablet TL Q6HR PRN Nausea / Vomiting Ondansetron HCl 4 mg 09/10/24 16:27 Ondansetron 4 Mg/2 Ml Vial IVP Q6HR PRN Nausea / Vomiting Pantoprazole Sodium 40 mg 09/10/24 21:00 09/11/24 09:07 Pantoprazole 40 Mg Tablet PO 40 mg BID KOMAL Administration Sodium Chloride 10 ml 09/10/24 19:52 09/11/24 04:17 Sodium Chloride Flush 0.9% 10 Ml Syringe IVP 10 ml PRN PRN Administration Per Line Care protocol Thiamine HCl 100 mg 09/10/24 16:27 09/11/24 09:08 Thiamine 100 Mg Tablet PO 100 mg DAILY KOMAL Administration Trimethoprim/Sulfamethoxazole 1 tab 09/11/24 09:00 09/11/24 09:07 Sulfameth/Trimeth Ds 800/160 Mg Tablet PO 1 tab DAILY KOMAL Administration Objective Vital Signs/Intake & Output Reviewed Vital Signs: Yes Vital Signs: Vital Signs x48h Temp Pulse Resp BP Pulse Ox O2 Flow Rate 09/11/24 08:00 36.9 C 74 17 98/59 L 92 09/11/24 07:00 76 14 98/58 L 94 2 09/11/24 06:00 71 14 92/53 L 93 2 09/11/24 05:00 80 14 101/60 96 2 09/11/24 04:00 36.9 C 75 18 96/60 94 2 09/11/24 03:00 78 16 93/61 94 2 09/11/24 02:00 37.5 C 80 15 100/58 L 94 2 Intake & Output: Intake & Output 09/08/24 09/09/24 09/10/24 09/11/24 23:59 23:59 23:59 23:59 Intake Total 2012 250 / 250 Output Total 900 / 900 500 / 500 Balance 1113 / 1113 -250 / -250 Weight (kg) 110.2 kg 108 kg Objective General Appearance: positive No acute distress and Alert Eyes Bilateral: positive PERRL, EOMI and Other (scleral icterus) ENT: positive ENT inspection nml, Pharynx nml and No signs of dehydration Neck: positive Nml inspection, Thyroid nml and No JVD Respiratory: positive Chest non-tender, No respiratory distress and Breath sounds nml; negative Wheezes, Rales or Rhonchi Cardiovascular: positive Regular rate & rhythm, No murmur and No gallop Abdomen: positive Non-tender, Hepatomegaly and Other (ascites and distention); negative Rebound or Splenomegaly Skin: positive No rash, Warm and Other (slight jaundice noted) Extremities: positive Non-tender and No pedal edema Neurologic/Psychiatric: positive Oriented x3, Mood/affect nml and Weakness Lab Results 09/11/24 04:15 09/11/24 04:15 Other Labs: Lab Results x24hrs 09/11/24 09/11/24 09/11/24 Range/Units 04:15 04:15 04:15 WBC 4.5 L (4.8-10.8) x10^3/uL RBC 2.53 L (4.70-6.10) 10^6/uL Hgb 8.0 L (14.0-18.0) g/dL Hct 23.1 L (42.0-52.0) % MCV 91.3 (80.0-94.0) fL MCH 31.6 H (27.0-31.0) pg MCHC 34.6 (32.0-36.0) g/dL RDW 26.2 H (12.0-15.0) % Plt Count 54 L (130-450) 10^3/uL MPV 10.6 (7.4-11.4) fL Neut # (Auto) 2.6 (1.5-6.6) 10^3/uL Lymph # (Auto) 0.9 L (1.5-3.5) 10^3/uL [place] # (Auto) 0.9 (0.0-1.0) 10^3/uL Eos # (Auto) 0.1 (0.0-0.7) 10^3/uL Baso # (Auto) 0.0 (0.0-0.1) 10^3/uL Absolute Nucleated RBC 0.00 x10^3/uL Nucleated RBC % 0.0 /100WBC Manual Slide Review Indicated Platelet Estimate DECREASED (<130,000) (NORMAL) Platelet Morphology NORMAL APPEARANCE (NORMAL) RBC Morph Micro Appear 1+ OVALOCYTES 2+ HYPOCHROMASIA 2+ ANISOCYTOSIS (NORMAL) PT (9.9-12.6) secs INR (0.8-1.2) VBG pH 7.407 (7.31-7.41) Ionized Calcium 1.21 (1.09-1.30) mmol/L Sodium 135 (135-145) mmol/L Potassium 4.2 (3.5-4.5) mmol/L Chloride 108 (101-111) mmol/L Carbon Dioxide 21 (21-32) mmol/L Anion Gap 6.0 (6-13) BUN 12 (6-20) mg/dL Creatinine 1.4 H (0.6-1.3) mg/dL Estimated GFR (MDRD) 51 L (>89) Glucose 137 H (74-104) mg/dL Lactic Acid (0.5-2.2) mmol/L Calcium 8.6 (8.5-10.3) mg/dL Phosphorus 3.7 (2.5-5.0) mg/dL Magnesium 1.5 L (1.7-2.3) mg/dL Total Bilirubin (0.2-1.0) mg/dL AST (10-42) IU/L ALT (10-60) IU/L Alkaline Phosphatase (42-121) IU/L Total Protein (6.4-8.9) g/dL Albumin (3.2-5.5) g/dL Globulin (2.1-4.2) g/dL Albumin/Globulin Ratio (1.0-2.2) Lipase (11-82) U/L Urine Color Urine Clarity (CLEAR) Urine pH (5.0-7.5) PH Ur Specific [place] (1.002-1.030) Urine Protein (NEGATIVE) mg/dL Urine Glucose (UA) (NEGATIVE) mg/dL Urine Ketones (NEGATIVE) mg/dL Urine Occult Blood (NEGATIVE) Urine Nitrite (NEGATIVE) Urine Bilirubin (NEGATIVE) Urine Urobilinogen (NORMAL) E.U./dL Ur Leukocyte Esterase (NEGATIVE) Ur Microscopic Review Urine Culture Comments Fluid Source Fluid Color Fluid Clarity Fluid WBC /mm^3 Fluid RBC /mm^3 Fluid Neutrophils % % Fluid Lymphocytes % % Fluid Monocytes % % Fluid Eosinophils % % Fluid Macrophages % % Fld Mesothelial Cell % % Nasal Adenovirus (PCR) Nasal B. parapertussis DNA (PCR) Nasal Coronavir 229E PCR Nasal Coronavir HKU1 PCR Nasal Coronavir NL63 PCR Nasal Coronavir OC43 PCR Nasal Enterovir/Rhinovir PCR Nasal Influenza B PCR Nasal Influenza A PCR Nasal Parainfluen 1 PCR Nasal Parainfluen 2 PCR Nasal Parainfluen 3 PCR Nasal Parainfluen 4 PCR Nasal RSV (PCR) Nasal Screen MRSA (PCR) (NEGATIVE) Nasal B.pertussis DNA PCR Nasal C.pneumoniae (PCR) Zev Human Metapneumo PCR Nasal M.pneumoniae (PCR) Nasal SARS-CoV-2 (PCR) Blood Type Antibody Screen Crossmatch IS Only 09/10/24 09/10/24 09/10/24 Range/Units 16:25 15:06 13:15 WBC (4.8-10.8) x10^3/uL RBC (4.70-6.10) 10^6/uL Hgb (14.0-18.0) g/dL Hct (42.0-52.0) % MCV (80.0-94.0) fL MCH (27.0-31.0) pg MCHC (32.0-36.0) g/dL RDW (12.0-15.0) % Plt Count (130-450) 10^3/uL MPV (7.4-11.4) fL Neut # (Auto) (1.5-6.6) 10^3/uL Lymph # (Auto) (1.5-3.5) 10^3/uL [place] # (Auto) (0.0-1.0) 10^3/uL Eos # (Auto) (0.0-0.7) 10^3/uL Baso # (Auto) (0.0-0.1) 10^3/uL Absolute Nucleated RBC x10^3/uL Nucleated RBC % /100WBC Manual Slide Review Platelet Estimate (NORMAL) Platelet Morphology (NORMAL) RBC Morph Micro Appear (NORMAL) PT (9.9-12.6) secs INR (0.8-1.2) VBG pH (7.31-7.41) Ionized Calcium (1.09-1.30) mmol/L Sodium (135-145) mmol/L Potassium (3.5-4.5) mmol/L Chloride (101-111) mmol/L Carbon Dioxide (21-32) mmol/L Anion Gap (6-13) BUN (6-20) mg/dL Creatinine (0.6-1.3) mg/dL Estimated GFR (MDRD) (>89) Glucose (74-104) mg/dL Lactic Acid (0.5-2.2) mmol/L Calcium (8.5-10.3) mg/dL Phosphorus (2.5-5.0) mg/dL Magnesium (1.7-2.3) mg/dL Total Bilirubin (0.2-1.0) mg/dL AST (10-42) IU/L ALT (10-60) IU/L Alkaline Phosphatase (42-121) IU/L Total Protein (6.4-8.9) g/dL Albumin (3.2-5.5) g/dL Globulin (2.1-4.2) g/dL Albumin/Globulin Ratio (1.0-2.2) Lipase (11-82) U/L Urine Color YELLOW Urine Clarity CLEAR (CLEAR) Urine pH 6.0 (5.0-7.5) PH Ur Specific [place] <=1.005 (1.002-1.030) Urine Protein NEGATIVE (NEGATIVE) mg/dL Urine Glucose (UA) NEGATIVE (NEGATIVE) mg/dL Urine Ketones NEGATIVE (NEGATIVE) mg/dL Urine Occult Blood NEGATIVE (NEGATIVE) Urine Nitrite NEGATIVE (NEGATIVE) Urine Bilirubin NEGATIVE (NEGATIVE) Urine Urobilinogen 0.2 (NORMAL) (NORMAL) E.U./dL Ur Leukocyte Esterase NEGATIVE (NEGATIVE) Ur Microscopic Review NOT INDICATED Urine Culture Comments NOT INDICATED Fluid Source PERITONEAL Fluid Color YELLOW Fluid Clarity HAZY Fluid WBC 49 /mm^3 Fluid RBC < 362591 /mm^3 Fluid Neutrophils % 7 % Fluid Lymphocytes % 34 % Fluid Monocytes % 10 % Fluid Eosinophils % 1 % Fluid Macrophages % 19 % Fld Mesothelial Cell % 28 % Nasal Adenovirus (PCR) Nasal B. parapertussis DNA (PCR) Nasal Coronavir 229E PCR Nasal Coronavir HKU1 PCR Nasal Coronavir NL63 PCR Nasal Coronavir OC43 PCR Nasal Enterovir/Rhinovir PCR Nasal Influenza B PCR Nasal Influenza A PCR Nasal Parainfluen 1 PCR Nasal Parainfluen 2 PCR Nasal Parainfluen 3 PCR Nasal Parainfluen 4 PCR Nasal RSV (PCR) Nasal Screen MRSA (PCR) NEGATIVE (NEGATIVE) Nasal B.pertussis DNA PCR Nasal C.pneumoniae (PCR) Zev Human Metapneumo PCR Nasal M.pneumoniae (PCR) Nasal SARS-CoV-2 (PCR) Blood Type Antibody Screen Crossmatch IS Only 09/10/24 09/10/24 09/10/24 Range/Units 11:40 11:00 10:52 WBC 3.7 L (4.8-10.8) x10^3/uL RBC 2.18 L (4.70-6.10) 10^6/uL Hgb 6.9 L* (14.0-18.0) g/dL Hct 20.1 L (42.0-52.0) % MCV 92.2 (80.0-94.0) fL MCH 31.7 H (27.0-31.0) pg MCHC 34.3 (32.0-36.0) g/dL RDW 27.8 H (12.0-15.0) % Plt Count 46 L (130-450) 10^3/uL MPV 10.4 (7.4-11.4) fL Neut # (Auto) 2.4 (1.5-6.6) 10^3/uL Lymph # (Auto) 0.6 L (1.5-3.5) 10^3/uL [place] # (Auto) 0.6 (0.0-1.0) 10^3/uL Eos # (Auto) 0.1 (0.0-0.7) 10^3/uL Baso # (Auto) 0.0 (0.0-0.1) 10^3/uL Absolute Nucleated RBC 0.00 x10^3/uL Nucleated RBC % 0.0 /100WBC Manual Slide Review Indicated Platelet Estimate (NORMAL) Platelet Morphology (NORMAL) RBC Morph Micro Appear 4+ ANISOCYTOSIS (NORMAL) PT 34.7 H (9.9-12.6) secs INR 3.2 H (0.8-1.2) VBG pH (7.31-7.41) Ionized Calcium (1.09-1.30) mmol/L Sodium 132 L (135-145) mmol/L Potassium 4.2 (3.5-4.5) mmol/L Chloride 106 (101-111) mmol/L Carbon Dioxide 18 L (21-32) mmol/L Anion Gap 8.0 (6-13) BUN 15 (6-20) mg/dL Creatinine 1.8 H (0.6-1.3) mg/dL Estimated GFR (MDRD) 38 L (>89) Glucose 108 H (74-104) mg/dL Lactic Acid 3.8 H* (0.5-2.2) mmol/L Calcium 8.4 L (8.5-10.3) mg/dL Phosphorus (2.5-5.0) mg/dL Magnesium (1.7-2.3) mg/dL Total Bilirubin 7.1 H (0.2-1.0) mg/dL AST 63 H (10-42) IU/L ALT 30 (10-60) IU/L Alkaline Phosphatase 89 (42-121) IU/L Total Protein 5.6 L (6.4-8.9) g/dL Albumin 1.9 L (3.2-5.5) g/dL Globulin 3.7 (2.1-4.2) g/dL Albumin/Globulin Ratio 0.5 L (1.0-2.2) Lipase 65 (11-82) U/L Urine Color Urine Clarity (CLEAR) Urine pH (5.0-7.5) PH Ur Specific [place] (1.002-1.030) Urine Protein (NEGATIVE) mg/dL Urine Glucose (UA) (NEGATIVE) mg/dL Urine Ketones (NEGATIVE) mg/dL Urine Occult Blood (NEGATIVE) Urine Nitrite (NEGATIVE) Urine Bilirubin (NEGATIVE) Urine Urobilinogen (NORMAL) E.U./dL Ur Leukocyte Esterase (NEGATIVE) Ur Microscopic Review Urine Culture Comments Fluid Source Fluid Color Fluid Clarity Fluid WBC /mm^3 Fluid RBC /mm^3 Fluid Neutrophils % % Fluid Lymphocytes % % Fluid Monocytes % % Fluid Eosinophils % % Fluid Macrophages % % Fld Mesothelial Cell % % Nasal Adenovirus (PCR) NOT DETECTED Nasal B. parapertussis DNA (PCR) NOT DETECTED Nasal Coronavir 229E PCR NOT DETECTED Nasal Coronavir HKU1 PCR NOT DETECTED Nasal Coronavir NL63 PCR NOT DETECTED Nasal Coronavir OC43 PCR NOT DETECTED Nasal Enterovir/Rhinovir PCR NOT DETECTED Nasal Influenza B PCR NOT DETECTED Nasal Influenza A PCR NOT DETECTED Nasal Parainfluen 1 PCR NOT DETECTED Nasal Parainfluen 2 PCR NOT DETECTED Nasal Parainfluen 3 PCR NOT DETECTED Nasal Parainfluen 4 PCR NOT DETECTED Nasal RSV (PCR) NOT DETECTED Nasal Screen MRSA (PCR) (NEGATIVE) Nasal B.pertussis DNA PCR NOT DETECTED Nasal C.pneumoniae (PCR) NOT DETECTED Zev Human Metapneumo PCR NOT DETECTED Nasal M.pneumoniae (PCR) NOT DETECTED Nasal SARS-CoV-2 (PCR) NOT DETECTED Blood Type B POSITIVE Antibody Screen NEGATIVE Crossmatch IS Only See Detail Diagnostic Imaging Diagnostic Imaging Results: positive Final report reviewed ABX Reporting Has patient been on IV antibiotics over the past 48 hours?: No Sepsis Event Note (H) Evaluation Current Stage of Sepsis: Ruled out Assessment/Plan Problem List (1) Acute hypotension: Impression: Patient is still hypotensive at 98/59 mmHg. Patient reports feeling better today--denies dizziness. Patient received 1 units of PRBCs and IVF. -Continue to monitor for improvement-- still requiring IV norepinephrine. -IV Lasix is on hold until hypotension resolves (2) Ascites due to alcoholic hepatitis: Impression: Patient has extensive fluid overload and distention; discussed paracentesis once blood pressure improves. -As BP increases, IV Lasix will be administered for diuresis -Continue prophylactic Bactrim -Patient received therapeutic paracentesis 06/2024 and 9L of fluid was removed. -Child Silva Score is 13 indicating 1-3 year life expectancy; MELD score is 34, revealing 52.6% mortality in 3 months. -Maddrey's Discriminant Function score is 111.5, but prednisolone is currently on hold d/t GI bleed. (3) Severe anemia: Impression: Patient's hemoglobin improved from 6.9 to 8.0 g/dL after receiving blood products. -Continue to trend H&H every 8 hours -General surgery consult if H&H declines more -EGD/colonoscopy done 06/2024--esophageal varices and rectal AVM were diagnosed. Patient likely has GI bleed contributing to hypotension in addition to portal hypertension. (4) Acute renal failure: Impression: Due to hepatorenal syndrome--patient's kidney function has improved, with increased GFR, decreased creatinine and BUN. -IVF given and IV Lasix on hold until hypotension resolves. -Continue to trend for improvement Qualifiers: Acute renal failure type: unspecified Qualified Code(s): N17.9 - Acute kidney failure, unspecified (5) Elevated bilirubin: Impression: Patient's total bilirubin is 7.1 mg/dL. On exam, patient has scleral icterus. -trend and ultrasound liver and gallbladder if bilirubin continues to increase (6) Prostate cancer: Impression: Patient was diagnosed with prostate adenocarcinoma, but is not being treated. -Oncology appt is scheduled (7) Essential hypertension: Impression: Prior to acute hypotension, patient was treated for HTN -Continue midodrine and monitor BP (8) Dyslipidemia: Impression: Patient's LFTs are elevated and simvastatin will be on hold while patient recovers in hospital. -Will recommend follow up with PCP
[2024-09-11] MEDS: MAGNESIUM OXIDE 400 MG TABLET PO SCH (12:23)
[2024-09-11] MEDS: ALBUMIN 25% 12.5 GM/50 ML VIAL IV STA (12:50)
[2024-09-12 05:22] LABS: HCT - HEMATOCRIT 21.2 % (42.0-52.0); HGB - HEMOGLOBIN 7.2 g/dL (14.0-18.0); MEAN CORPUSCULAR VOLUME 91.4 fL (80.0-94.0); MEAN PLATELET VOLUME 10.4 fL (7.4-11.4); RED BLOOD COUNT 2.32 10^6/uL (4.70-6.10); RED CELL DISTRIBUTION WIDTH 26.3 % (12.0-15.0); WHITE BLOOD COUNT 3.5 x10^3/uL (4.8-10.8)
[2024-09-12 05:24] LABS: CALCIUM, IONIZED 1.25 mmol/L (1.09-1.30)
[2024-09-12 05:30] LABS: MAGNESIUM 1.5 mg/dL (1.7-2.3)
[2024-09-12 05:36] LABS: ALBUMIN/GLOBULIN RATIO 0.6 (1.0-2.2); BILIRUBIN,TOTAL 7.5 mg/dL (0.2-1.0); CALCIUM 8.6 mg/dL (8.5-10.3); CREATININE 1.2 mg/dL (0.6-1.3); PHOSPHORUS 3.3 mg/dL (2.5-5.0); TOTAL PROTEIN 5.4 g/dL (6.4-8.9)
[2024-09-12 05:42] LABS: INR 3.8 (0.8-1.2); PT - PROTHROMBIN TIME 41.4 secs (9.9-12.6)
[2024-09-12] MEDS: MAGNESIUM OXIDE 400 MG TABLET PO ONE (07:28)
[2024-09-12] MEDS: ALBUMIN 25% 12.5 GM/50 ML VIAL IV STA (08:26)
[2024-09-12] MEDS: MAGNESIUM SULFATE 2 GRAM 2 GM/50 ML BAG IV ONE (08:26)
[2024-09-12] MEDS: FUROSEMIDE 20 MG/2 ML VIAL IVP ONE (08:39)
[2024-09-12] MEDS: cefTRIAXone 1 GM VIAL IVP SCH (08:39)
[2024-09-12] MEDS ORDERED: cefTRIAXone 1 GM in SODIUM CHLORIDE 0.9% MINIBAG 100 ML IV SCH (09:00)
--- NOTE | 2024-09-12 11:56 | PHARMACY PROGRESS NOTE ---
Best Possible Medication History Admit Date and Time: 09/10/24 1555 Home Medications Medication Instructions Recorded Confirmed Type simvastatin 40 mg tablet 40 mg PO QPM 05/02/24 09/10/24 History furosemide 40 mg tablet 40 mg PO DAILY 07/04/24 09/11/24 History multivitamin 1 tab PO QPM 07/04/24 09/10/24 History pantoprazole 40 mg tablet,delayed 40 mg PO BID 07/04/24 09/10/24 History release spironolactone 100 mg tablet 100 mg PO DAILY 07/04/24 09/11/24 History thiamine mononitrate (vit B1) 100 100 mg PO QDAY 07/04/24 09/10/24 History mg tablet folic acid 1 mg tablet 1 mg PO DAILY 09/12/24 09/12/24 History sulfamethoxazole 800 1 tab PO DAILY 09/12/24 09/12/24 History mg-trimethoprim 160 mg tablet Processed by: Pharmacy Medications reviewed in ED?: No Medication History completed: Yes Patient Interview: Completed Secondary Source(s): Written medication list, Spouse/Significant other, Pharmacy records, Insurance records and Previous admit records [facility] Statement: As the person ultimately responsible for medication therapy, providers are able to order a medication from an existing home medication list in [facility] via the "Reconcile Routine" prior to Confirmation of that medication by merchandise support associate. Such practice is discouraged except when the physician, in their clinical judgment, deems that a medical need exists for a medication without regard to previous use.
[2024-09-12 14:33] LABS: HCT - HEMATOCRIT 21.8 % (42.0-52.0); HGB - HEMOGLOBIN 7.7 g/dL (14.0-18.0)
--- NOTE | 2024-09-12 14:57 | PROVIDER PROGRESS NOTE ---
Subjective Prog Note Date Prog Note Date: 09/12/24 Prog Note Time: 13:49 Subjective Pt reports feeling: No change Subjective: Tavon is a 68-year-old male with a history of alcoholic cirrhosis, prostate adenocarcinoma, rectal AVM, and HTN who was admitted to the ICU with acute hypotension and near-syncope. Patient feels well overall. He is alert and oriented x 3. He does complain of abdominal distension making him feel uncomfortable. He is frustrated at being hospitalized at this time. Current Medications Current Medications Current Medications: Current Medications Generic Name Dose Route Start Last Admin Trade Name Freq PRN Reason Stop Dose Admin Ceftriaxone Sodium 1 gm 09/12/24 09:00 09/12/24 08:39 Ceftriaxone 1 Gm Vial IVP 1 gm DAILY KOMAL Administration Folic Acid 1 mg 09/10/24 16:27 09/12/24 08:26 Folic Acid 1 Mg Tablet PO 1 mg DAILY KOMAL Administration Norepinephrine/Sodium Chloride 8 mg in 250 mls @ 15 mls/hr 09/10/24 13:00 09/12/24 12:27 Levophed 8 Mg/250-0.9% Nacl IV 7 mcg/min .[id number] KOMAL 13.13 mls/hr Titration Protocol 8 MCG/MIN Sodium Chloride 500 mls @ 20 mls/hr 09/10/24 19:52 Normal Saline 0.9% IV Q24H PRN TKO RATE Midodrine 10 mg 09/11/24 09:00 09/12/24 05:56 Midodrine 10 Mg Tablet PO 10 mg TID KOMAL Administration Multivitamins/Minerals 1 tab 09/10/24 21:00 09/11/24 21:06 Multivitamin W/Minerals Tablet PO 1 tab QPM KOMAL Administration Ondansetron HCl 4 mg 09/10/24 16:27 Ondansetron Odt 4 Mg Tablet TL Q6HR PRN Nausea / Vomiting Ondansetron HCl 4 mg 09/10/24 16:27 Ondansetron 4 Mg/2 Ml Vial IVP Q6HR PRN Nausea / Vomiting Pantoprazole Sodium 40 mg 09/10/24 21:00 09/12/24 08:27 Pantoprazole 40 Mg Tablet PO 40 mg BID KOMAL Administration Sodium Chloride 10 ml 09/10/24 19:52 09/11/24 21:35 Sodium Chloride Flush 0.9% 10 Ml Syringe IVP 10 ml PRN PRN Administration Per Line Care protocol Sterile Water 10 ml 09/12/24 09:00 09/12/24 08:39 Water For Injection,Sterile 10 Ml Vial MC 10 ml DAILY KOMAL Administration Thiamine HCl 100 mg 09/10/24 16:27 09/12/24 08:26 Thiamine 100 Mg Tablet PO 100 mg DAILY KOMAL Administration Objective Vital Signs/Intake & Output Reviewed Vital Signs: Yes Vital Signs: Vital Signs x48h Temp Pulse Resp BP Pulse Ox 09/12/24 12:59 74 14 94/57 L 94 09/12/24 12:16 37.1 C 78 19 118/60 94 09/12/24 12:00 36.4 C 72 23 118/60 93 09/12/24 11:00 77 16 101/54 L 92 09/12/24 10:00 67 18 102/58 L 94 09/12/24 09:15 36.8 C 74 13 94/54 L 93 09/12/24 09:00 74 20 91/50 L 93 09/12/24 08:59 37.0 C 73 14 101/62 91 L 09/12/24 08:00 36.7 C 67 18 102/61 91 L 09/12/24 07:00 61 17 89/54 L 90 L 09/12/24 06:00 67 16 100/57 L 92 Intake & Output: Intake & Output 09/09/24 09/10/24 09/11/24 09/12/24 23:59 23:59 23:59 23:59 Intake Total 2012 1205 / 1205 961 / 961 Output Total 900 / 900 1700 / 1700 1495 / 1495 Balance 1113 / 1113 -495 / -495 -534 / -534 Weight (kg) 110.2 kg 108 kg 107.5 kg Objective General Appearance: positive No acute distress and Alert Eyes Bilateral: positive Other (scleral icterus) Abdomen: positive Non-tender and Other (Distention d/t ascites. No guarding or masses.) Neurologic/Psychiatric: positive Oriented x3 and Mood/affect nml Lab Results 09/12/24 14:15 09/12/24 04:45 Other Labs: Lab Results x24hrs 09/12/24 09/12/24 09/11/24 Range/Units 11:35 04:45 21:31 WBC 3.5 L (4.8-10.8) x10^3/uL RBC 2.32 L (4.70-6.10) 10^6/uL Hgb 7.2 L (14.0-18.0) g/dL Hct 21.2 L (42.0-52.0) % MCV 91.4 (80.0-94.0) fL MCH 31.0 (27.0-31.0) pg MCHC 34.0 (32.0-36.0) g/dL RDW 26.3 H (12.0-15.0) % Plt Count 42 L (130-450) 10^3/uL MPV 10.4 (7.4-11.4) fL PT 41.4 H (9.9-12.6) secs INR 3.8 H (0.8-1.2) VBG pH 7.410 (7.31-7.41) Ionized Calcium 1.25 (1.09-1.30) mmol/L Sodium 136 (135-145) mmol/L Potassium 4.0 (3.5-4.5) mmol/L Chloride 108 (101-111) mmol/L Carbon Dioxide 24 (21-32) mmol/L Anion Gap 4.0 L (6-13) BUN 8 (6-20) mg/dL Creatinine 1.2 (0.6-1.3) mg/dL Estimated GFR (MDRD) 60 L (>89) Glucose 116 H (74-104) mg/dL Calcium 8.6 (8.5-10.3) mg/dL Phosphorus 3.3 (2.5-5.0) mg/dL Magnesium 1.9 1.5 L 1.5 L (1.7-2.3) mg/dL Total Bilirubin 7.5 H (0.2-1.0) mg/dL AST 58 H (10-42) IU/L ALT 27 (10-60) IU/L Alkaline Phosphatase 80 (42-121) IU/L Total Protein 5.4 L (6.4-8.9) g/dL Albumin 2.0 L (3.2-5.5) g/dL Globulin 3.4 (2.1-4.2) g/dL Albumin/Globulin Ratio 0.6 L (1.0-2.2) Fluid Glucose (.) mg/dL Fluid Total Protein (.) g/dL Fluid LDH (.) IU/L Blood Type Antibody Screen Crossmatch IS Only 09/10/24 09/10/24 Range/Units 15:06 11:40 WBC (4.8-10.8) x10^3/uL RBC (4.70-6.10) 10^6/uL Hgb (14.0-18.0) g/dL Hct (42.0-52.0) % MCV (80.0-94.0) fL MCH (27.0-31.0) pg MCHC (32.0-36.0) g/dL RDW (12.0-15.0) % Plt Count (130-450) 10^3/uL MPV (7.4-11.4) fL PT (9.9-12.6) secs INR (0.8-1.2) VBG pH (7.31-7.41) Ionized Calcium (1.09-1.30) mmol/L Sodium (135-145) mmol/L Potassium (3.5-4.5) mmol/L Chloride (101-111) mmol/L Carbon Dioxide (21-32) mmol/L Anion Gap (6-13) BUN (6-20) mg/dL Creatinine (0.6-1.3) mg/dL Estimated GFR (MDRD) (>89) Glucose (74-104) mg/dL Calcium (8.5-10.3) mg/dL Phosphorus (2.5-5.0) mg/dL Magnesium (1.7-2.3) mg/dL Total Bilirubin (0.2-1.0) mg/dL AST (10-42) IU/L ALT (10-60) IU/L Alkaline Phosphatase (42-121) IU/L Total Protein (6.4-8.9) g/dL Albumin (3.2-5.5) g/dL Globulin (2.1-4.2) g/dL Albumin/Globulin Ratio (1.0-2.2) Fluid Glucose 134 (.) mg/dL Fluid Total Protein 1.0 (.) g/dL Fluid LDH 61 (.) IU/L Blood Type B POSITIVE Antibody Screen NEGATIVE Crossmatch IS Only See Detail ABX Reporting Has patient been on IV antibiotics over the past 48 hours?: Yes Sepsis Event Note (H) Evaluation Current Stage of Sepsis: Ruled out Assessment/Plan Problem List (1) Acute hypotension: Impression: The patient was admitted after an episode of hypotension and near-syncope. Since his admission, he has been given 2 units of packed RBCs, IVF, albumin, and remains on IV Levophed. His hypotension is improving; he is requiring less doses of Levophed. - Hypotension may be attributed to acute blood loss anemia with decreasing Hb, recent history of rectal AVM s/p coagulation at [facility] in 07/16. No bowel movements noted at this time. Continue to trend H&H. Received 2 units PRBCs. - May also be attributed to sepsis/underlying infection. 1/2 of blood cultures are positive for GPC. Speciation did not reveal an results. Started IV Rocephin to cover for MSSA. MRSA swab was negative. Repeat blood cultures ordered today 09/12. - Continue midodrine 10mg TID. (2) Ascites due to alcoholic hepatitis: Impression: The patient has had complications from alcoholic cirrhosis for years and recently had therapeutic paracentesis at in June 2024. He has had multiple ER visits since March 2024 due to melena, hypotension and complications of cirrhosis. At a visit at , addiction counseling was discussed with the patient and he wanted to try abstinence before following up with an outpatient addiction clinic, according to medical records. However, the patient has continued to consume alcohol. - IR to reassess clinical appropriateness of paracentesis tomorrow. Will re- order coagulation panel, and assess vasopressor requirements. - Discussed with Dr. Araiza, superintendent communications, and Dr. Mendez, ICU doctor at [facility] regarding this patient's care. Agreeable to transfer to ICU for higher level care in setting of cirrhosis and further capabilities present at . Awaiting bed placement. - Blzkt-Kzfslpz-Rzfq score is 13, indicating a life expectancy of 1-3 years. MELD score is 31, indicating the patient's 3-month mortality rate is 52.6%. Maddrey's Discriminant Function score is 140.0. Consider prednisolone. (3) Severe anemia: Impression: The patient's H&H continue to decline despite receiving 2 units of PRBCs. His platelets are at 42x10^3 uL , and his PT/INR are markedly elevated. The patient was educated on how his end stage liver disease affects his blood. -Patient will be encouraged to follow up with his superintendent communications after hospitalization (4) Acute renal failure: Impression: Resolving. Patient's renal failure is likely due to hepatorenal syndrome. Creatinine has normalized to 1.2 g/dL; GFR is 60; BUN is 8. Qualifiers: Acute renal failure type: unspecified Qualified Code(s): N17.9 - Acute kidney failure, unspecified (5) Elevated bilirubin: Impression: Patient's total bilirubin is 7.5 mg/dL and is elevated d/t cirrhosis, likely congestive hepatopathy. -Continue to trend (6) Prostate cancer: Impression: Patient was diagnosed and treated for prostate adenocarcinoma in 2020. -He has a follow-up appt. scheduled with oncology (7) Essential hypertension: Impression: Patient previously had HTN controlled with felodipine, irbesartan, and nadolol. Continue holding antihypertensives indefinitely. (8) Dyslipidemia: Impression: Patient's simvastatin is on hold due to transaminitis and hyperbilirubinemia. (9) Paroxysmal atrial fibrillation: Impression: Patient continues to go in and out of atrial fibrillation. He is not currently on anticoagulation; INR is elevated due to liver disease.
--- NOTE | 2024-09-12 19:36 | Ultrasound Report ---
PROCEDURE: US Abdomen Limited INDICATIONS: ascites TECHNIQUE: Screening ultrasound of the abdomen for ascites COMPARISONS: None. FINDINGS: Moderate ascites noted in all 4 quadrants of the abdomen IMPRESSION: Moderate ascites Reviewed by: Leo Cardoza MD on 09/12/2024 6:35 PM AKDT Approved by: Leo Cardoza MD on 09/12/2024 6:35 PM AKDT Station ID: [id number]
[2024-09-13 04:24] LABS: HCT - HEMATOCRIT 21.7 % (42.0-52.0); HGB - HEMOGLOBIN 7.5 g/dL (14.0-18.0); MEAN CORPUSCULAR HEMOGLOBIN 31.3 pg (27.0-31.0); MEAN CORPUSCULAR HGB CONC 34.6 g/dL (32.0-36.0); MEAN CORPUSCULAR VOLUME 90.4 fL (80.0-94.0); RED BLOOD COUNT 2.4 10^6/uL (4.70-6.10); RED CELL DISTRIBUTION WIDTH 25.7 % (12.0-15.0); WHITE BLOOD COUNT 3.5 x10^3/uL (4.8-10.8)
[2024-09-13 04:27] LABS: CALCIUM, IONIZED 1.23 mmol/L (1.09-1.30); VBG PH 7.435 (7.31-7.41)
[2024-09-13 04:30] LABS: INR 3.7 (0.8-1.2); PT - PROTHROMBIN TIME 39.7 secs (9.9-12.6)
[2024-09-13 04:36] LABS: MAGNESIUM 1.9 mg/dL (1.7-2.3)
[2024-09-13 04:41] LABS: CALCIUM 8.8 mg/dL (8.5-10.3); CREATININE 1.2 mg/dL (0.6-1.3); PHOSPHORUS 3.3 mg/dL (2.5-5.0); POTASSIUM 3.8 mmol/L (3.5-4.5)
[2024-09-13] MEDS: POTASSIUM CHLORIDE 20 MEQ TABLET PO ONE (05:36)
[2024-09-13] MEDS: polyethylene glycoL 3350 17 GM PACKET PO SCH (09:22)
[2024-09-13] MEDS: SENNA 8.6 MG TABLET PO SCH (09:22)
[2024-09-13] MEDS: DOCUSATE SODIUM 250 MG CAPSULE PO SCH (09:22)
[2024-09-13] MEDS: LACTULOSE 10 GM /15 ML UDC PO ONE (09:22)
[2024-09-13] MEDS: ALBUMIN 25% 12.5 GM/50 ML VIAL IV SCH (12:50)
--- NOTE | 2024-09-13 12:50 | PROVIDER PROGRESS NOTE ---
Subjective Subjective Subjective: Patient complains of abdominal distention. He feels like the bloating sensation is keeping him from eating. Yesterday, I had spoken with a test engine evaluator, as well as a intensive care doctor at [facility]. Plans were for transfer over there to higher level of care with further specialist which can be required if the patient decompensates. They accepted the patient, and there was a bed available for him. Despite explaining the risk of staying here including worsening coagulopathy, worsening hypotension, no hepatology support, no GI support, patient stated that he would not like to be transferred. Current Medications Current Medications Current Medications: Current Medications Generic Name Dose Route Start Last Admin Trade Name Freq PRN Reason Stop Dose Admin Ceftriaxone Sodium 1 gm 09/12/24 09:00 09/13/24 09:01 Ceftriaxone 1 Gm Vial IVP 1 gm DAILY KOMAL Administration Docusate Sodium 250 - 500 mg 09/13/24 10:00 09/13/24 09:22 Docusate Sodium 250 Mg Capsule PO 250 mg DAILY KOMAL Administration Folic Acid 1 mg 09/10/24 16:27 09/13/24 09:01 Folic Acid 1 Mg Tablet PO 1 mg DAILY KOMAL Administration Norepinephrine/Sodium Chloride 8 mg in 250 mls @ 15 mls/hr 09/10/24 13:00 09/13/24 08:43 Levophed 8 Mg/250-0.9% Nacl IV 5 mcg/min .[id number] KOMAL 9.38 mls/hr Titration Protocol 8 MCG/MIN Sodium Chloride 500 mls @ 20 mls/hr 09/10/24 19:52 Normal Saline 0.9% IV Q24H PRN TKO RATE Albumin Human 12.5 gm in 50 mls @ 50 mls/hr 09/13/24 12:00 Albuminar-25 IV 09/13/24 13:59 Q1HR KOMAL Midodrine 10 mg 09/11/24 09:00 09/13/24 05:36 Midodrine 10 Mg Tablet PO 10 mg TID KOMAL Administration Multivitamins/Minerals 1 tab 09/10/24 21:00 09/12/24 21:11 Multivitamin W/Minerals Tablet PO 1 tab QPM KOMAL Administration Ondansetron HCl 4 mg 09/10/24 16:27 Ondansetron Odt 4 Mg Tablet TL Q6HR PRN Nausea / Vomiting Ondansetron HCl 4 mg 09/10/24 16:27 Ondansetron 4 Mg/2 Ml Vial IVP Q6HR PRN Nausea / Vomiting Pantoprazole Sodium 40 mg 09/10/24 21:00 09/13/24 09:01 Pantoprazole 40 Mg Tablet PO 40 mg BID KOMAL Administration Polyethylene Glycol 17 gm 09/13/24 10:00 09/13/24 09:22 Polyethylene Glycol 3350 17 Gm Packet PO 17 gm DAILY KOMAL Administration Senna 8.6 - 17.2 mg 09/13/24 10:00 09/13/24 09:22 Senna 8.6 Mg Tablet PO 8.6 mg DAILY KOMAL Administration Sodium Chloride 10 ml 09/10/24 19:52 09/13/24 09:01 Sodium Chloride Flush 0.9% 10 Ml Syringe IVP 10 ml PRN PRN Administration Per Line Care protocol Sterile Water 10 ml 09/12/24 09:00 09/13/24 09:01 Water For Injection,Sterile 10 Ml Vial MC 10 ml DAILY KOMAL Administration Thiamine HCl 100 mg 09/10/24 16:27 09/13/24 09:01 Thiamine 100 Mg Tablet PO 100 mg DAILY KOMAL Administration Objective Vital Signs/Intake & Output Reviewed Vital Signs: Yes Vital Signs: Vital Signs x48h Temp Pulse Resp BP Pulse Ox 09/13/24 12:00 98.0 F 66 16 98/49 L 92 09/13/24 11:00 60 14 102/58 L 94 09/13/24 10:00 71 16 93/50 L 95 09/13/24 09:00 68 14 91/53 L 94 09/13/24 08:00 98 F 74 17 105/56 L 94 09/13/24 07:00 62 11 L 103/57 L 92 09/13/24 06:00 77 18 91/61 92 09/13/24 05:00 73 13 98/59 L 93 Intake & Output: Intake & Output 09/10/24 09/11/24 09/12/24 09/13/24 23:59 23:59 23:59 23:59 Intake Total 2012 1205 / 1205 1780 / 1780 657 / 657 Output Total 900 / 900 1700 / 1700 1994 400 / 400 Balance 1113 / 1113 -495 / -495 -215 / -215 257 / 257 Weight (kg) 110.2 kg 108 kg 107.5 kg 107 kg Objective General Appearance: positive No acute distress and Alert Eyes Bilateral: positive PERRL, EOMI and Other (scleral icterus) ENT: positive ENT inspection nml, Pharynx nml and No signs of dehydration Neck: positive Nml inspection, Thyroid nml and No JVD Respiratory: positive Chest non-tender, No respiratory distress, Breath sounds nml and Rhonchi; negative Wheezes or Rales Cardiovascular: positive Regular rate & rhythm, No murmur and No gallop; negative Tachycardia or Bradycardia Abdomen: positive Non-tender, No organomegaly and Other (Distention d/t ascites. No guarding or masses.) Back: positive Nml inspection; negative CVA tenderness (R) or CVA tenderness (L) Skin: positive Other (large area of ecchymoses noted in R shoulder area near subclavian line) Extremities: positive Non-tender, Full ROM and No pedal edema Neurologic/Psychiatric: positive Oriented x3, Motor nml and Mood/affect nml Lab Results 09/13/24 04:18 09/13/24 10:20 Other Labs: Lab Results x24hrs 09/13/24 09/13/24 09/12/24 Range/Units 10:20 04:18 14:15 WBC 3.5 L (4.8-10.8) x10^3/uL RBC 2.40 L (4.70-6.10) 10^6/uL Hgb 7.5 L 7.7 L (14.0-18.0) g/dL Hct 21.7 L 21.8 L (42.0-52.0) % MCV 90.4 (80.0-94.0) fL MCH 31.3 H (27.0-31.0) pg MCHC 34.6 (32.0-36.0) g/dL RDW 25.7 H (12.0-15.0) % Plt Count 36 L (130-450) 10^3/uL MPV 10.0 (7.4-11.4) fL PT 39.7 H (9.9-12.6) secs INR 3.7 H (0.8-1.2) VBG pH 7.435 H (7.31-7.41) Ionized Calcium 1.23 (1.09-1.30) mmol/L Sodium 135 (135-145) mmol/L Potassium 4.0 3.8 (3.5-4.5) mmol/L Chloride 107 (101-111) mmol/L Carbon Dioxide 25 (21-32) mmol/L Anion Gap 3.0 L (6-13) BUN 9 (6-20) mg/dL Creatinine 1.2 (0.6-1.3) mg/dL Estimated GFR (MDRD) 60 L (>89) Glucose 125 H (74-104) mg/dL Calcium 8.8 (8.5-10.3) mg/dL Phosphorus 3.3 (2.5-5.0) mg/dL Magnesium 1.9 (1.7-2.3) mg/dL ABX Reporting Has patient been on IV antibiotics over the past 48 hours?: Yes Sepsis Event Note (H) Evaluation Current Stage of Sepsis: Ruled out Assessment/Plan Problem List (1) Acute hypotension: Impression: The patient was admitted after an episode of hypotension and near-syncope. Since his admission, he has been given 2 units of packed RBCs, IVF, albumin, and remains on IV Levophed. - Hypotension may be attributed to acute blood loss anemia with decreasing Hb, recent history of rectal AVM s/p coagulation at [facility] in 07/16. No bowel movements noted at this time. Continue to trend H&H. Received 2 units PRBCs. Today patient is noted to have a large hematoma in his right shoulder area. We have ordered 1 unit of FFP's as he has thrombocytopenia as well as an elevated INR to help with this bleeding. - May also be attributed to sepsis/underlying infection. 1/2 of blood cultures are positive for GPC. Speciation did not reveal an results. Started IV Rocephin to cover for MSSA. MRSA swab was negative. Repeat blood cultures ordered today 09/12. - Continue midodrine 10mg TID. (2) Ascites due to alcoholic hepatitis: Impression: The patient has had complications from alcoholic cirrhosis for years and recently had therapeutic paracentesis at in June 2024. He has had multiple ER visits since March 2024 due to melena, hypotension and complications of cirrhosis. At a visit at , addiction counseling was discussed with the patient and he wanted to try abstinence before following up with an outpatient addiction clinic, according to medical records. However, the patient has continued to consume alcohol. - IR completed paracentesis today, removed 3.6 L. Received 25g albumin. - Discussed with Dr. Araiza, test engine evaluator, and Dr. Mendez, ICU doctor at [facility] regarding this patient's care. Agreeable to transfer to ICU for higher level care in setting of cirrhosis and further capabilities present at . Patient refused transfer after it was set up. - Hxzjf-Orlixvy-Dnej score is 13, indicating a life expectancy of 1-3 years. MELD score is 31, indicating the patient's 3-month mortality rate is 52.6%. Maddrey's Discriminant Function score is 140.0. Consider prednisolone. (3) Severe anemia: Impression: The patient's H&H continue to decline despite receiving 2 units of PRBCs. Continue to transfuse for Hb<7. - Patient will be encouraged to follow up with his test engine evaluator after hospitalization (4) Acute renal failure: Impression: Resolving. Patient's renal failure is likely due to hepatorenal syndrome. Creatinine has normalized. Qualifiers: Acute renal failure type: unspecified Qualified Code(s): N17.9 - Acute kidney failure, unspecified (5) Elevated bilirubin: Impression: Patient's total bilirubin is 7.5 mg/dL and is elevated d/t cirrhosis, likely congestive hepatopathy. -Continue to trend (6) Prostate cancer: Impression: Patient was diagnosed and treated for prostate adenocarcinoma in 2020. -He has a follow-up appt. scheduled with oncology (7) Essential hypertension: Impression: Patient previously had HTN controlled with felodipine, irbesartan, and nadolol. Continue holding antihypertensives indefinitely. (8) Dyslipidemia: Impression: Patient's simvastatin is on hold due to transaminitis and hyperbilirubinemia. (9) Paroxysmal atrial fibrillation: Impression: Patient continues to go in and out of atrial fibrillation. He is not currently on anticoagulation; INR is elevated due to liver disease.
--- NOTE | 2024-09-13 17:26 | Ultrasound Report ---
PROCEDURE: US Abdominal Paracentesis INDICATIONS: ascites TECHNIQUE: The indications, alternatives, benefits, risks, and complications of the procedure were explained to the patient. Written informed consent was obtained and placed in the chart. The abdomen and pelvis were examined sonographically, and an appropriate site was chosen for paracentesis. The skin was pre pared and draped in the usual sterile fashion, and 1% lidocaine was infiltrated from the skin down th rough the peritoneal surface. A 19-gauge catheter-covered needle was then introduced into the perito dandre space, the catheter was advanced and the needle was withdrawn, and thereafter peritoneal fluid w as withdrawn. The catheter was then removed and a dressing was applied. The fluid was discarded if the clinician did not order diagnostic testing of the fluid. COMPARISON: Ultrasound 09/11/2024 FINDINGS: Access site: Right lower quadrant Needle: One-Step centesis catheter with introducer needle. Fluid volume and description: 3.6 L clear yellow fluid. Fluid sent for diagnostic testing: Not requested Medications: 1% lidocaine for local anaesthesia. Complications: None. IMPRESSION: Successful ultrasound-guided paracentesis. Reviewed by: Teo Barber MD on 09/13/2024 5:25 PM PDT Approved by: Teo Barber MD on 09/13/2024 5:25 PM PDT Station ID: [id number]
[2024-09-13] MEDS ORDERED: HALOPERIDOL 5 MG/ML VIAL ONE (18:17)
[2024-09-14 04:33] LABS: BASOPHILS % (AUTO) 0.5 %; EOSINOPHILS # (AUTO) 0.2 10^3/uL (0.0-0.7); EOSINOPHILS % (AUTO) 4.5 %; LYMPHOCYTES # (AUTO) 0.9 10^3/uL (1.5-3.5); LYMPHOCYTES % (AUTO) 24.3 %; MEAN CORPUSCULAR HEMOGLOBIN 31.5 pg (27.0-31.0); MEAN CORPUSCULAR HGB CONC 34.5 g/dL (32.0-36.0); MEAN CORPUSCULAR VOLUME 91.3 fL (80.0-94.0); MEAN PLATELET VOLUME 9.9 fL (7.4-11.4); MONOCYTES # (AUTO) 0.7 10^3/uL (0.0-1.0); MONOCYTES % (AUTO) 19.3 %; NEUTROPHILS # (AUTO) 1.9 10^3/uL (1.5-6.6); NEUTROPHILS % (AUTO) 50.9 %; PLT - PLATELET COUNT 46 10^3/uL (130-450); RED BLOOD COUNT 2.19 10^6/uL (4.70-6.10); RED CELL DISTRIBUTION WIDTH 25.8 % (12.0-15.0); WHITE BLOOD COUNT 3.7 x10^3/uL (4.8-10.8)
[2024-09-14 04:37] LABS: SLIDE REVIEW? Indicated
[2024-09-14 04:39] LABS: HGB - HEMOGLOBIN 6.9 g/dL (14.0-18.0)
[2024-09-14 04:40] LABS: VBG PH 7.449 (7.31-7.41)
[2024-09-14 04:41] LABS: MAGNESIUM 1.7 mg/dL (1.7-2.3)
[2024-09-14 04:47] LABS: CALCIUM 8.5 mg/dL (8.5-10.3); PHOSPHORUS 3.4 mg/dL (2.5-5.0); POTASSIUM 3.9 mmol/L (3.5-4.5)
[2024-09-14 05:15] LABS: PLATELET ESTIMATE, MANUAL DECREASED (<130,000) (NORMAL); PLATELET MORPHOLOGY NORMAL APPEARANCE (NORMAL); WBC MORPHOLOGY (MULTIPLE) NORMAL APPEARANCE (NORMAL)
[2024-09-14] MEDS: MAGNESIUM OXIDE 400 MG TABLET PO ONE ×2 (06:12→11:19)
[2024-09-14] MEDS: POTASSIUM CHLORIDE 20 MEQ TABLET PO ONE (06:12)
[2024-09-14] MEDS: VANCOMYCIN INJ 2 GM, VANCOMYCIN INJ 500 MG in SODIUM CHLORIDE 0.9% 500 ML IV ONE (08:58)
--- NOTE | 2024-09-14 08:58 | PROVIDER PROGRESS NOTE ---
Subjective Subjective Subjective: Patient expresses frustration at being here in the hospital when he feels good. He was counseled extensively on his continued hypotension, now that lack of perfusion with his low blood pressure could affect his vital organs, and lead to worsening outcomes, including . Despite this, he is insistent on going home later. He was advised that he would be leaving AGAINST MEDICAL ADVICE. Will have ongoing conversations regarding this. His bruising is stable from yesterday, he is now able to move his right arm. Yesterday, I had spoken with a metal welder, as well as a intensive care doctor at [facility]. Plans were for transfer over there to higher level of care with further specialist which can be required if the patient decompensates. They accepted the patient, and there was a bed available for him. Despite explaining the risk of staying here including worsening coagulopathy, worsening hypotension, no hepatology support, no GI support, patient stated that he would not like to be transferred. Current Medications Current Medications Current Medications: Current Medications Generic Name Dose Route Start Last Admin Trade Name Neela PRN Reason Stop Dose Admin Docusate Sodium 250 - 500 mg 09/13/24 10:00 09/13/24 09:22 Docusate Sodium 250 Mg Capsule PO 250 mg DAILY KOMAL Administration Folic Acid 1 mg 09/10/24 16:27 09/13/24 09:01 Folic Acid 1 Mg Tablet PO 1 mg DAILY KOMAL Administration Norepinephrine/Sodium Chloride 8 mg in 250 mls @ 15 mls/hr 09/10/24 13:00 09/14/24 08:40 Levophed 8 Mg/250-0.9% Nacl IV 14 mcg/min .[id number] KOMAL 26.25 mls/hr Titration Protocol 8 MCG/MIN Sodium Chloride 500 mls @ 20 mls/hr 09/10/24 19:52 Normal Saline 0.9% IV Q24H PRN TKO RATE Vancomycin HCl 2 gm/ 500 mls @ 166.667 mls/hr 09/14/24 09:00 Vancomycin HCl 500 mg/ Sodium IV 09/14/24 11:59 Chloride ONCE ONE Midodrine 10 mg 09/11/24 09:00 09/14/24 06:12 Midodrine 10 Mg Tablet PO 10 mg TID KOMAL Administration Multivitamins/Minerals 1 tab 09/10/24 21:00 09/13/24 21:24 Multivitamin W/Minerals Tablet PO 1 tab QPM KOMAL Administration Ondansetron HCl 4 mg 09/10/24 16:27 Ondansetron Odt 4 Mg Tablet TL Q6HR PRN Nausea / Vomiting Ondansetron HCl 4 mg 09/10/24 16:27 Ondansetron 4 Mg/2 Ml Vial IVP Q6HR PRN Nausea / Vomiting Pantoprazole Sodium 40 mg 09/10/24 21:00 09/13/24 21:24 Pantoprazole 40 Mg Tablet PO 40 mg BID KOMAL Administration Polyethylene Glycol 17 gm 09/13/24 10:00 09/13/24 09:22 Polyethylene Glycol 3350 17 Gm Packet PO 17 gm DAILY KOMAL Administration Senna 8.6 - 17.2 mg 09/13/24 10:00 09/13/24 09:22 Senna 8.6 Mg Tablet PO 8.6 mg DAILY KOMAL Administration Sodium Chloride 10 ml 09/10/24 19:52 09/13/24 09:01 Sodium Chloride Flush 0.9% 10 Ml Syringe IVP 10 ml PRN PRN Administration Per Line Care protocol Thiamine HCl 100 mg 09/10/24 16:27 09/13/24 09:01 Thiamine 100 Mg Tablet PO 100 mg DAILY KOMAL Administration Vancomycin HCl 1 each 09/14/24 08:14 Vancomycin: Pharmacy To Dose [facility] .ONCE PRN PER PHARMACY Objective Vital Signs/Intake & Output Reviewed Vital Signs: Yes Vital Signs: Vital Signs x48h Temp Pulse Resp BP Pulse Ox 09/14/24 08:33 99.0 F 74 14 109/51 L 94 09/14/24 08:13 98.8 F 68 16 115/58 L 94 09/14/24 08:00 98.3 F 72 20 104/55 L 93 09/14/24 07:00 86 22 102/56 L 92 09/14/24 06:00 78 20 92/48 L 94 09/14/24 05:00 68 16 88/48 L 91 L 09/14/24 04:00 69 14 93/48 L 91 L 09/14/24 03:00 70 16 100/54 L 92 09/14/24 02:00 66 13 97/50 L 92 09/14/24 01:00 68 12 92/47 L 92 Intake & Output: Intake & Output 09/11/24 09/12/24 09/13/24 09/14/24 23:59 23:59 23:59 23:59 Intake Total 1205 / 1205 1780 / 1780 1662 / 1662 478 / 478 Output Total 1700 / 1700 1994 8200 / 8200 450 / 450 Balance -495 / -495 -215 / -215 -6538 / -6538 Weight (kg) 108 kg 107.5 kg 107 kg 107.5 kg Objective General Appearance: positive No acute distress and Alert Eyes Bilateral: positive PERRL, EOMI and Other (scleral icterus) ENT: positive ENT inspection nml, Pharynx nml and No signs of dehydration Neck: positive Nml inspection, Thyroid nml and No JVD Respiratory: positive Chest non-tender, No respiratory distress, Breath sounds nml and Rhonchi; negative Wheezes or Rales Cardiovascular: positive Regular rate & rhythm, No murmur and No gallop; negative Tachycardia or Bradycardia Abdomen: positive Non-tender, No organomegaly and Other (Distention d/t ascites. No guarding or masses.) Back: positive Nml inspection; negative CVA tenderness (R) or CVA tenderness (L) Skin: positive Other (large area of ecchymoses noted in R shoulder area near subclavian line) Extremities: positive Non-tender, Full ROM and No pedal edema Neurologic/Psychiatric: positive Oriented x3, Motor nml and Mood/affect nml Lab Results 09/14/24 12:45 09/14/24 09:50 Other Labs: Lab Results x24hrs 09/14/24 09/14/24 09/14/24 Range/Units 06:17 04:14 04:14 WBC 3.7 L (4.8-10.8) x10^3/uL RBC 2.19 L (4.70-6.10) 10^6/uL Hgb 6.9 L* (14.0-18.0) g/dL Hct 20.0 L* (42.0-52.0) % MCV 91.3 (80.0-94.0) fL MCH 31.5 H (27.0-31.0) pg MCHC 34.5 (32.0-36.0) g/dL RDW 25.8 H (12.0-15.0) % Plt Count 46 L (130-450) 10^3/uL MPV 9.9 (7.4-11.4) fL Neut # (Auto) 1.9 (1.5-6.6) 10^3/uL Lymph # (Auto) 0.9 L (1.5-3.5) 10^3/uL [place] # (Auto) 0.7 (0.0-1.0) 10^3/uL Eos # (Auto) 0.2 (0.0-0.7) 10^3/uL Baso # (Auto) 0.0 (0.0-0.1) 10^3/uL Absolute Nucleated RBC 0.00 x10^3/uL Nucleated RBC % 0.0 /100WBC Manual Slide Review Indicated WBC Morphology NORMAL APPEARANCE (NORMAL) Platelet Estimate DECREASED (<130,000) (NORMAL) Platelet Morphology NORMAL APPEARANCE (NORMAL) RBC Morph Micro Appear 1+ HYPOCHROMASIA 2+ ANISOCYTOSIS (NORMAL) VBG pH 7.449 H (7.31-7.41) Ionized Calcium 1.20 (1.09-1.30) mmol/L Sodium 134 L (135-145) mmol/L Potassium 3.9 (3.5-4.5) mmol/L Chloride 106 (101-111) mmol/L Carbon Dioxide 24 (21-32) mmol/L Anion Gap 4.0 L (6-13) BUN 7 (6-20) mg/dL Creatinine 1.0 (0.6-1.3) mg/dL Estimated GFR (MDRD) 75 L (>89) Glucose 128 H (74-104) mg/dL Calcium 8.5 (8.5-10.3) mg/dL Phosphorus 3.4 (2.5-5.0) mg/dL Magnesium 1.7 (1.7-2.3) mg/dL Blood Type B POSITIVE Antibody Screen NEGATIVE Crossmatch IS Only See Detail 09/13/24 09/10/24 Range/Units 10:20 11:40 WBC (4.8-10.8) x10^3/uL RBC (4.70-6.10) 10^6/uL Hgb (14.0-18.0) g/dL Hct (42.0-52.0) % MCV (80.0-94.0) fL MCH (27.0-31.0) pg MCHC (32.0-36.0) g/dL RDW (12.0-15.0) % Plt Count (130-450) 10^3/uL MPV (7.4-11.4) fL Neut # (Auto) (1.5-6.6) 10^3/uL Lymph # (Auto) (1.5-3.5) 10^3/uL [place] # (Auto) (0.0-1.0) 10^3/uL Eos # (Auto) (0.0-0.7) 10^3/uL Baso # (Auto) (0.0-0.1) 10^3/uL Absolute Nucleated RBC x10^3/uL Nucleated RBC % /100WBC Manual Slide Review WBC Morphology (NORMAL) Platelet Estimate (NORMAL) Platelet Morphology (NORMAL) RBC Morph Micro Appear (NORMAL) VBG pH (7.31-7.41) Ionized Calcium (1.09-1.30) mmol/L Sodium (135-145) mmol/L Potassium 4.0 (3.5-4.5) mmol/L Chloride (101-111) mmol/L Carbon Dioxide (21-32) mmol/L Anion Gap (6-13) BUN (6-20) mg/dL Creatinine (0.6-1.3) mg/dL Estimated GFR (MDRD) (>89) Glucose (74-104) mg/dL Calcium (8.5-10.3) mg/dL Phosphorus (2.5-5.0) mg/dL Magnesium (1.7-2.3) mg/dL Blood Type B POSITIVE Antibody Screen NEGATIVE Crossmatch IS Only See Detail ABX Reporting Has patient been on IV antibiotics over the past 48 hours?: Yes Sepsis Event Note (H) Evaluation Current Stage of Sepsis: Ruled out Assessment/Plan Problem List (1) Acute hypotension: Impression: The patient was admitted after an episode of hypotension and near-syncope. Since his admission, he has been given 3 units of packed RBCs, IVF, albumin, and remains on IV Levophed. - May be attributed to sepsis/underlying infection. 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 His Rocephin was switched to vancomycin today. Repeat blood cultures are negative; there is concern that this was a contaminiation as it was 05/23, repeat blood cultures are negative. Rocephin was switched to vancomycin today. ECHO is ordered. MRSA swab was negative. - Hypotension may be attributed to acute blood loss anemia with decreasing Hb, recent history of rectal AVM s/p coagulation at [facility] in 07/16. He also has a hematoma in his right arm. No bowel movements noted at this time. Continue to trend H&H. Received 3 units PRBCs. Also received 1 unit of FFP's as he has thrombocytopenia as well as an elevated INR to help with this bleeding. - Continue midodrine 10mg TID. (2) Ascites due to alcoholic hepatitis: Impression: The patient has had complications from alcoholic cirrhosis for years and recently had therapeutic paracentesis at in June 2024. He has had multiple ER visits since March 2024 due to melena, hypotension and complications of cirrhosis. At a visit at , addiction counseling was discussed with the patient and he wanted to try abstinence before following up with an outpatient addiction clinic, according to medical records. However, the patient has continued to consume alcohol. - IR completed paracentesis 09/13, removed 3.6 L. Received 25g albumin. - Discussed with Dr. Araiza, metal welder, and Dr. Mendez, ICU doctor at [facility] regarding this patient's care. Agreeable to transfer to ICU for higher level care in setting of cirrhosis and further capabilities present at . Patient refused transfer after it was set up. - Nufyc-Xvizcex-Slrt score is 13, indicating a life expectancy of 1-3 years. MELD score is 31, indicating the patient's 3-month mortality rate is 52.6%. Maddrey's Discriminant Function score is 140.0. Consider prednisolone. (3) Severe anemia: Impression: The patient's H&H continue to decline despite receiving 3 units of PRBCs. Continue to transfuse for Hb<7. - Patient will be encouraged to follow up with his metal welder after hospitalization (4) Acute renal failure: Impression: Resolved. Patient's renal failure is likely due to hepatorenal syndrome. Creatinine has normalized. Qualifiers: Acute renal failure type: unspecified Qualified Code(s): N17.9 - Acute kidney failure, unspecified (5) Elevated bilirubin: Impression: Patient's total bilirubin is 7.5 mg/dL and is elevated d/t cirrhosis, likely congestive hepatopathy. -Continue to trend (6) Prostate cancer: Impression: Patient was diagnosed and treated for prostate adenocarcinoma in 2020. -He has a follow-up appt. scheduled with oncology (7) Essential hypertension: Impression: Patient previously had HTN controlled with felodipine, irbesartan, and nadolol. Continue holding antihypertensives indefinitely. (8) Dyslipidemia: Impression: Patient's simvastatin is on hold due to transaminitis and hyperbilirubinemia. (9) Paroxysmal atrial fibrillation: Impression: Patient continues to go in and out of atrial fibrillation. He is not currently on anticoagulation; INR is elevated due to liver disease.
[2024-09-14 10:14] LABS: MAGNESIUM 1.7 mg/dL (1.7-2.3); POTASSIUM 4.1 mmol/L (3.5-4.5)
[2024-09-14 12:59] LABS: BASOPHILS % (AUTO) 0.3 %; EOSINOPHILS # (AUTO) 0.1 10^3/uL (0.0-0.7); EOSINOPHILS % (AUTO) 3.8 %; HCT - HEMATOCRIT 21.1 % (42.0-52.0); HGB - HEMOGLOBIN 7.2 g/dL (14.0-18.0); LYMPHOCYTES # (AUTO) 0.6 10^3/uL (1.5-3.5); LYMPHOCYTES % (AUTO) 18.4 %; MEAN CORPUSCULAR HEMOGLOBIN 31.4 pg (27.0-31.0); MEAN CORPUSCULAR HGB CONC 34.1 g/dL (32.0-36.0); MEAN CORPUSCULAR VOLUME 92.1 fL (80.0-94.0); MEAN PLATELET VOLUME 9.6 fL (7.4-11.4); MONOCYTES # (AUTO) 0.6 10^3/uL (0.0-1.0); MONOCYTES % (AUTO) 19.4 %; NEUTROPHILS # (AUTO) 1.8 10^3/uL (1.5-6.6); NEUTROPHILS % (AUTO) 57.8 %; PLT - PLATELET COUNT 39 10^3/uL (130-450); RED BLOOD COUNT 2.29 10^6/uL (4.70-6.10); RED CELL DISTRIBUTION WIDTH 23.9 % (12.0-15.0); WHITE BLOOD COUNT 3.2 x10^3/uL (4.8-10.8)
[2024-09-14 13:31] LABS: PLATELET MORPHOLOGY NORMAL APPEARANCE (NORMAL); SLIDE REVIEW? Indicated
[2024-09-14 13:32] LABS: PLATELET ESTIMATE, MANUAL DECREASED (<130,000) (NORMAL)
[2024-09-14 13:33] LABS: WBC MORPHOLOGY (MULTIPLE) NORMAL APPEARANCE (NORMAL)
[2024-09-14] MEDS: LACTATED RINGERS 500 ML IV ONE (18:08)
[2024-09-14] MEDS: ALBUMIN 25% 12.5 GM/50 ML VIAL IV STA (18:08)
[2024-09-14] MEDS: VANCOMYCIN INJ 1 GM, VANCOMYCIN INJ 250 MG in SODIUM CHLORIDE 0.9% 250 ML IV SCH (21:07)
[2024-09-15 04:25] LABS: BASOPHILS % (AUTO) 0.7 %; HCT - HEMATOCRIT 20.3 % (42.0-52.0); HGB - HEMOGLOBIN 7.1 g/dL (14.0-18.0); LYMPHOCYTES # (AUTO) 0.6 10^3/uL (1.5-3.5)
[2024-09-15 04:26] LABS: CALCIUM, IONIZED 1.18 mmol/L (1.09-1.30); VBG PH 7.432 (7.31-7.41)
[2024-09-15 04:28] LABS: EOSINOPHILS # (AUTO) 0.2 10^3/uL (0.0-0.7); EOSINOPHILS % (AUTO) 5.5 %; MEAN CORPUSCULAR VOLUME 91.4 fL (80.0-94.0); MEAN PLATELET VOLUME 9.8 fL (7.4-11.4); MONOCYTES # (AUTO) 0.6 10^3/uL (0.0-1.0); NEUTROPHILS # (AUTO) 1.6 10^3/uL (1.5-6.6); NEUTROPHILS % (AUTO) 55.1 %; RED BLOOD COUNT 2.22 10^6/uL (4.70-6.10); WHITE BLOOD COUNT 2.9 x10^3/uL (4.8-10.8)
[2024-09-15 04:35] LABS: MAGNESIUM 1.7 mg/dL (1.7-2.3)
[2024-09-15 04:40] LABS: PHOSPHORUS 2.6 mg/dL (2.5-5.0); SLIDE REVIEW? Indicated
[2024-09-15 04:41] LABS: CALCIUM 8.1 mg/dL (8.5-10.3); PLT - PLATELET COUNT 33 10^3/uL (130-450)
[2024-09-15 04:51] LABS: PLATELET ESTIMATE, MANUAL DECREASED (<130,000) (NORMAL); PLATELET MORPHOLOGY NORMAL APPEARANCE (NORMAL)
[2024-09-15 04:52] LABS: DIFFERENTIAL COMMENT MANUAL=AUTO DIFF; WBC MORPHOLOGY (MULTIPLE) NORMAL APPEARANCE (NORMAL)
[2024-09-15] MEDS ORDERED: ALBUMIN 25% 12.5 GM/50 ML VIAL IV SCH (06:00)
[2024-09-15] MEDS: CHERRY SYRUP 10 ML UDC PO ONE (09:00)
[2024-09-15] MEDS: PHYTONADIONE 10 MG/ML AMP PO ONE (09:00)
[2024-09-15] MEDS: SODIUM CHLORIDE 0.9% 500 ML IV ONE (09:01)
--- NOTE | 2024-09-15 09:57 | PROVIDER PROGRESS NOTE ---
Subjective Subjective Subjective: Patient expresses frustration at being here in the hospital when he feels good. His labs indicate that he is in DIC due to his extensive liver cirrhosis. I explained that this is a life-threatening condition, and may cause severe bleeding, or clots. The risks of leaving AMA include . Previously, I had spoken with a charger tester, as well as a intensive care doctor at [facility]. Plans were for transfer over there to higher level of care with further specialist which can be required if the patient decompensates. They accepted the patient, and there was a bed available for him. Despite explaining the risk of staying here including worsening coagulopathy, worsening hypotension, no hepatology support, no GI support, patient stated that he would not like to be transferred. At this time, he is agreeable to transfer, but there are no beds at this time. Current Medications Current Medications Current Medications: Current Medications Generic Name Dose Route Start Last Admin Trade Name Freq PRN Reason Stop Dose Admin Docusate Sodium 250 - 500 mg 09/13/24 10:00 09/15/24 09:00 Docusate Sodium 250 Mg Capsule PO 250 mg DAILY KOMAL Administration Folic Acid 1 mg 09/10/24 16:27 09/15/24 09:01 Folic Acid 1 Mg Tablet PO 1 mg DAILY KOMAL Administration Glycerin 1 supp 09/15/24 10:00 Glycerin Adult Supp [place] 09/15/24 10:01 ONCE ONE Norepinephrine/Sodium Chloride 8 mg in 250 mls @ 15 mls/hr 09/10/24 13:00 09/15/24 05:07 Levophed 8 Mg/250-0.9% Nacl IV 4 mcg/min .[id number] KOMAL 7.5 mls/hr Titration Protocol 8 MCG/MIN Sodium Chloride 500 mls @ 20 mls/hr 09/10/24 19:52 Normal Saline 0.9% IV Q24H PRN TKO RATE Vancomycin HCl 1 gm/ 250 mls @ 167 mls/hr 09/14/24 21:00 09/15/24 09:01 Vancomycin HCl 250 mg/ Sodium IV 167 mls/hr Chloride BID KOMAL Administration Lactulose 10 gm 09/15/24 10:00 Lactulose 10 Gm /15 Ml Udc PO 09/15/24 14:01 Q2H KOMAL Midodrine 10 mg 09/11/24 09:00 09/15/24 05:54 Midodrine 10 Mg Tablet PO 10 mg TID KOMAL Administration Multivitamins/Minerals 1 tab 09/10/24 21:00 09/14/24 21:04 Multivitamin W/Minerals Tablet PO 1 tab QPM KOMAL Administration Ondansetron HCl 4 mg 09/10/24 16:27 Ondansetron Odt 4 Mg Tablet TL Q6HR PRN Nausea / Vomiting Ondansetron HCl 4 mg 09/10/24 16:27 Ondansetron 4 Mg/2 Ml Vial IVP Q6HR PRN Nausea / Vomiting Pantoprazole Sodium 40 mg 09/10/24 21:00 09/15/24 09:01 Pantoprazole 40 Mg Tablet PO 40 mg BID KOMAL Administration Polyethylene Glycol 17 gm 09/13/24 10:00 09/15/24 09:01 Polyethylene Glycol 3350 17 Gm Packet PO 17 gm DAILY KOMAL Administration Senna 8.6 - 17.2 mg 09/13/24 10:00 09/15/24 09:00 Senna 8.6 Mg Tablet PO 8.6 mg DAILY KOMAL Administration Sodium Chloride 10 ml 09/10/24 19:52 09/13/24 09:01 Sodium Chloride Flush 0.9% 10 Ml Syringe IVP 10 ml PRN PRN Administration Per Line Care protocol Thiamine HCl 100 mg 09/10/24 16:27 09/15/24 09:00 Thiamine 100 Mg Tablet PO 100 mg DAILY KOMAL Administration Objective Vital Signs/Intake & Output Reviewed Vital Signs: Yes Vital Signs: Vital Signs x48h Temp Pulse Resp BP Pulse Ox 09/15/24 09:41 208.8 F H 72 12 102/50 L 94 09/15/24 09:00 98.8 F 67 12 93/51 L 96 09/15/24 08:16 67 12 79/60 L 95 09/15/24 07:00 67 14 101/49 L 09/15/24 06:00 72 24 112/82 09/15/24 05:00 98.2 F 66 16 85/54 L 92 09/15/24 04:00 67 13 90/49 L 92 09/15/24 03:00 69 12 91/47 L 09/15/24 02:00 70 20 82/53 L Intake & Output: Intake & Output 09/12/24 09/13/24 09/14/24 09/15/24 23:59 23:59 23:59 23:59 Intake Total 1780 / 1780 1662 / 1662 1790 / 1790 1628 / 1628 Output Total 1994 8200 / 8200 1075 / 1075 150 / 150 Balance -215 / -215 -6538 / -6538 715 / 715 1478 / 1478 Weight (kg) 107.5 kg 107 kg 107.5 kg 106.5 kg Objective General Appearance: positive No acute distress and Alert Eyes Bilateral: positive PERRL, EOMI and Other (scleral icterus) ENT: positive ENT inspection nml, Pharynx nml and No signs of dehydration Neck: positive Nml inspection, Thyroid nml and No JVD Respiratory: positive Chest non-tender, No respiratory distress, Breath sounds nml and Rhonchi; negative Wheezes or Rales Cardiovascular: positive Regular rate & rhythm, No murmur and No gallop; negative Tachycardia or Bradycardia Abdomen: positive Non-tender, No organomegaly and Other (Distention d/t ascites. No guarding or masses.) Back: positive Nml inspection; negative CVA tenderness (R) or CVA tenderness (L) Skin: positive Other (large area of ecchymoses noted in R shoulder area near subclavian line) Extremities: positive Non-tender, Full ROM and No pedal edema Neurologic/Psychiatric: positive Oriented x3, Motor nml and Mood/affect nml Lab Results 09/15/24 04:15 09/15/24 04:15 Other Labs: Lab Results x24hrs 09/15/24 09/15/24 09/15/24 Range/Units 08:00 04:15 04:15 WBC 2.9 L (4.8-10.8) x10^3/uL RBC 2.22 L (4.70-6.10) 10^6/uL Hgb 7.1 L (14.0-18.0) g/dL Hct 20.3 L (42.0-52.0) % MCV 91.4 (80.0-94.0) fL MCH 32.0 H (27.0-31.0) pg MCHC 35.0 (32.0-36.0) g/dL RDW 23.0 H (12.0-15.0) % Plt Count 33 L* (130-450) 10^3/uL MPV 9.8 (7.4-11.4) fL Neut # (Auto) 1.6 (1.5-6.6) 10^3/uL Lymph # (Auto) 0.6 L (1.5-3.5) 10^3/uL Door # (Auto) 0.6 (0.0-1.0) 10^3/uL Eos # (Auto) 0.2 (0.0-0.7) 10^3/uL Baso # (Auto) 0.0 (0.0-0.1) 10^3/uL Absolute Nucleated RBC 0.00 x10^3/uL Band Neuts % (Manual) Not Reportable Abnorm Lymph % (Manual) Not Reportable Nucleated RBC % 0.0 /100WBC Neutrophils # (Manual) Not Reportable Lymphocytes # (Manual) Not Reportable Monocytes # (Manual) Not Reportable Eosinophils # (Manual) Not Reportable Basophils # (Manual) Not Reportable Differential Comment MANUAL=AUTO DIFF Manual Slide Review Indicated WBC Morphology NORMAL APPEARANCE (NORMAL) Platelet Estimate DECREASED (<130,000) (NORMAL) Platelet Morphology NORMAL APPEARANCE (NORMAL) RBC Morph Micro Appear 1+ HYPOCHROMASIA 2+ ANISOCYTOSIS (NORMAL) Fibrinogen 78 L* (220-496) mg/dL VBG pH 7.432 H (7.31-7.41) Ionized Calcium 1.18 (1.09-1.30) mmol/L Sodium 135 (135-145) mmol/L Potassium 4.0 (3.5-4.5) mmol/L Chloride 108 (101-111) mmol/L Carbon Dioxide 24 (21-32) mmol/L Anion Gap 3.0 L (6-13) BUN 7 (6-20) mg/dL Creatinine 1.0 (0.6-1.3) mg/dL Estimated GFR (MDRD) 75 L (>89) Glucose 109 H (74-104) mg/dL Calcium 8.1 L (8.5-10.3) mg/dL Phosphorus 2.6 (2.5-5.0) mg/dL Magnesium 1.7 (1.7-2.3) mg/dL Blood Type Antibody Screen Crossmatch IS Only 09/14/24 09/14/24 09/14/24 Range/Units 12:45 12:45 09:50 WBC 3.2 L (4.8-10.8) x10^3/uL RBC 2.29 L (4.70-6.10) 10^6/uL Hgb 7.2 L (14.0-18.0) g/dL Hct 21.1 L (42.0-52.0) % MCV 92.1 (80.0-94.0) fL MCH 31.4 H (27.0-31.0) pg MCHC 34.1 (32.0-36.0) g/dL RDW 23.9 H (12.0-15.0) % Plt Count 39 L (130-450) 10^3/uL MPV 9.6 (7.4-11.4) fL Neut # (Auto) 1.8 (1.5-6.6) 10^3/uL Lymph # (Auto) 0.6 L (1.5-3.5) 10^3/uL Door # (Auto) 0.6 (0.0-1.0) 10^3/uL Eos # (Auto) 0.1 (0.0-0.7) 10^3/uL Baso # (Auto) 0.0 (0.0-0.1) 10^3/uL Absolute Nucleated RBC 0.00 x10^3/uL Band Neuts % (Manual) Abnorm Lymph % (Manual) Nucleated RBC % 0.0 /100WBC Neutrophils # (Manual) Lymphocytes # (Manual) Monocytes # (Manual) Eosinophils # (Manual) Basophils # (Manual) Differential Comment Manual Slide Review Indicated WBC Morphology NORMAL APPEARANCE (NORMAL) Platelet Estimate DECREASED (<130,000) (NORMAL) Platelet Morphology NORMAL APPEARANCE (NORMAL) RBC Morph Micro Appear 1+ HYPOCHROMASIA 2+ ANISOCYTOSIS (NORMAL) Fibrinogen (220-496) mg/dL VBG pH (7.31-7.41) Ionized Calcium (1.09-1.30) mmol/L Sodium (135-145) mmol/L Potassium 4.1 (3.5-4.5) mmol/L Chloride (101-111) mmol/L Carbon Dioxide (21-32) mmol/L Anion Gap (6-13) BUN (6-20) mg/dL Creatinine (0.6-1.3) mg/dL Estimated GFR (MDRD) (>89) Glucose (74-104) mg/dL Calcium (8.5-10.3) mg/dL Phosphorus (2.5-5.0) mg/dL Magnesium 1.7 (1.7-2.3) mg/dL Blood Type Antibody Screen Crossmatch IS Only 09/14/24 Range/Units 06:17 WBC (4.8-10.8) x10^3/uL RBC (4.70-6.10) 10^6/uL Hgb (14.0-18.0) g/dL Hct (42.0-52.0) % MCV (80.0-94.0) fL MCH (27.0-31.0) pg MCHC (32.0-36.0) g/dL RDW (12.0-15.0) % Plt Count (130-450) 10^3/uL MPV (7.4-11.4) fL Neut # (Auto) (1.5-6.6) 10^3/uL Lymph # (Auto) (1.5-3.5) 10^3/uL Door # (Auto) (0.0-1.0) 10^3/uL Eos # (Auto) (0.0-0.7) 10^3/uL Baso # (Auto) (0.0-0.1) 10^3/uL Absolute Nucleated RBC x10^3/uL Band Neuts % (Manual) Abnorm Lymph % (Manual) Nucleated RBC % /100WBC Neutrophils # (Manual) Lymphocytes # (Manual) Monocytes # (Manual) Eosinophils # (Manual) Basophils # (Manual) Differential Comment Manual Slide Review WBC Morphology (NORMAL) Platelet Estimate (NORMAL) Platelet Morphology (NORMAL) RBC Morph Micro Appear (NORMAL) Fibrinogen (220-496) mg/dL VBG pH (7.31-7.41) Ionized Calcium (1.09-1.30) mmol/L Sodium (135-145) mmol/L Potassium (3.5-4.5) mmol/L Chloride (101-111) mmol/L Carbon Dioxide (21-32) mmol/L Anion Gap (6-13) BUN (6-20) mg/dL Creatinine (0.6-1.3) mg/dL Estimated GFR (MDRD) (>89) Glucose (74-104) mg/dL Calcium (8.5-10.3) mg/dL Phosphorus (2.5-5.0) mg/dL Magnesium (1.7-2.3) mg/dL Blood Type B POSITIVE Antibody Screen NEGATIVE Crossmatch IS Only See Detail ABX Reporting Has patient been on IV antibiotics over the past 48 hours?: Yes Sepsis Event Note (H) Evaluation Current Stage of Sepsis: Ruled out Assessment/Plan Problem List (1) Disseminated intravascular coagulation (DIC) syndrome: Impression: Patient continues to have oozing from his IV sites, as well as a subclavian central line. He has a large hematoma and diffuse ecchymosis across his right chest wall. DIC panel was ordered: D-dimer is elevated, PT, PTT are prolonged. His platelets have remained low. His fibrinogen is 78. Patient has history of prostate adenocarcinoma and follows up with an oncologist at [facility], and I spoke with medical office assistant/oncologist on-call there, Dr. Romero. He is in agreement that this is likely acute DIC exacerbated by his underlying hepatic disease. Treatment is supportive, as we have been doing for the past few days. He states to aim for fibrinogen level greater than 100. He recommends cryoprecipitate transfusion. He states that he is available for consultation via phone if needed, but thinks that the patient may be a good candidate for transfer. I have called the following hospitals: [facility]: They are completely full, as well as boarding patients, unable to accommodate at this time. [facility]: They are completely full as well, advised to call back later. [facility]: There is no specific [facility] need, so they recommend transfer elsewhere. In the meantime, we will continue supportive care for DIC. I have transfused another unit of platelets, another unit of blood, as well as cryoprecipitate today. Goal is platelets greater than 50 with active bleeding, and a fibrinogen level greater than 100, and hemoglobin greater than 7. During the stay now, he has received 5 units of PRBCs, 2 units of FFP's, as well as 1 unit of pooled cryoprecipitate. Weaning Levophed as able. (2) Acute hypotension: Impression: - May be attributed to sepsis/underlying infection. The only real source of infection may have been his peritoneal fluid. Diagnostic paracentesis was done when he first got here, and there were less than 50 WBCs. Treated initially as patient was hypotensive. 1/ of blood cultures are positive for GPC, which now reveals Micrococcus Luteus. His Rocephin was switched to vancomycin today. Repeat blood cultures are negative; there is concern that this was a contaminiation as it was 05/23, repeat blood cultures are negative. They have now been negative for 48 hours. I will stop vancomycin tomorrow after a 7 day course. I will then continue his oral Bactrim, his prophylaxis. ECHO is ordered. MRSA swab was negative. - Hypotension may be attributed to DIC as stated above. No GI bleeding noted at this time, patient does have recent history of rectal AVM s/p coagulation at [facility] in 07/16. He also has a hematoma in his right arm. Continue to trend H&H, platelets, fibrinogen. - Continue midodrine 10mg TID. At baseline now, patient has hypotension due to use extensive cirrhosis, splanchnic hypertension which is linked to systemic hypotension. (3) Ascites due to alcoholic hepatitis: Impression: The patient has had complications from alcoholic cirrhosis for years and recently had therapeutic paracentesis at in June 2024. He has had multiple ER visits since March 2024 due to melena, hypotension and complications of cirrhosis. At a visit at , addiction counseling was discussed with the patient and he wanted to try abstinence before following up with an outpatient addiction clinic, according to medical records. However, the patient has continued to consume alcohol. - IR completed paracentesis 09/13, removed 3.6 L. Received 25g albumin. - Discussed with Dr. Araiza, charger tester, and Dr. Mendez, ICU doctor at [facility] regarding this patient's care. Agreeable to transfer to ICU for higher level care in setting of cirrhosis and further capabilities present at . Patient refused transfer after it was set up on 09/12. On 09/15, With increasing transfusion product requirements, transfer was brought up again. Patient is reluctantly agreeable at this time. However, all the hospitals lab called so far are full. Will try again tomorrow, 09/16. - Patient is not encephalopathic. Ammonia level ordered, pending. - Dauli-Quyfqsx-Qcgi score is 13, indicating a life expectancy of 1-3 years. MELD score is 31, indicating the patient's 3-month mortality rate is 52.6%. Maddrey's Discriminant Function score is 140.0. Consider prednisolone. (4) Severe anemia: Impression: - Continue to transfuse for Hb<7. - Patient will be encouraged to follow up with his charger tester after hospitalization. (5) Acute renal failure: Impression: Resolved. Patient's renal failure is likely due to hepatorenal syndrome. Creatinine has normalized. Still holding spirnalactone and Lasix due to hypotension. Qualifiers: Acute renal failure type: unspecified Qualified Code(s): N17.9 - Acute kidney failure, unspecified (6) Elevated bilirubin: Impression: Patient's total bilirubin is 7.5 mg/dL and is elevated d/t cirrhosis, likely congestive hepatopathy. Continue to trend. (7) Prostate cancer: Impression: Patient was diagnosed and treated for prostate adenocarcinoma in 2020. He has a follow-up appt. scheduled with oncology. (8) Essential hypertension: Impression: Patient previously had HTN controlled with felodipine, irbesartan, and nadolol. Continue holding antihypertensives indefinitely. (9) Dyslipidemia: Impression: Patient's simvastatin is on hold due to transaminitis and hyperbilirubinemia. (10) Paroxysmal atrial fibrillation: Impression: Patient continues to go in and out of atrial fibrillation. He is not currently on anticoagulation; INR is elevated due to liver disease.
[2024-09-15 10:48] LABS: D-DIMER > 1050.0 ng/mL (200.0-255.0)
[2024-09-15 11:04] LABS: INR 3.9 (0.8-1.2)
[2024-09-15] MEDS: LACTULOSE 10 GM /15 ML UDC PO SCH (11:08)
[2024-09-15] MEDS: GLYCERIN ADULT SUPP PR ONE (11:09)
[2024-09-15 11:22] LABS: PARTIAL THROMBOPLASTIN TIME 59.8 secs (24.9-33.3)
[2024-09-15 13:16] LABS: FECAL OCCULT BLOOD (FIT) NEGATIVE (NEGATIVE)
[2024-09-15 16:00] LABS: HCT - HEMATOCRIT 22.3 % (42.0-52.0); HGB - HEMOGLOBIN 7.6 g/dL (14.0-18.0); MEAN CORPUSCULAR HEMOGLOBIN 30.8 pg (27.0-31.0); MEAN CORPUSCULAR HGB CONC 34.1 g/dL (32.0-36.0); MEAN CORPUSCULAR VOLUME 90.3 fL (80.0-94.0); MEAN PLATELET VOLUME 9.3 fL (7.4-11.4); RED BLOOD COUNT 2.47 10^6/uL (4.70-6.10); RED CELL DISTRIBUTION WIDTH 22.9 % (12.0-15.0); WHITE BLOOD COUNT 3.2 x10^3/uL (4.8-10.8)
[2024-09-15] MEDS: SOAP SUDS ENEMA 1 EACH RC ONE (18:27)
[2024-09-16 04:45] LABS: BASOPHILS % (AUTO) 0.3 %; EOSINOPHILS # (AUTO) 0.1 10^3/uL (0.0-0.7); EOSINOPHILS % (AUTO) 3.6 %; HCT - HEMATOCRIT 21.6 % (42.0-52.0); LYMPHOCYTES # (AUTO) 0.8 10^3/uL (1.5-3.5); LYMPHOCYTES % (AUTO) 20.5 %; MEAN CORPUSCULAR HEMOGLOBIN 29.7 pg (27.0-31.0); MEAN CORPUSCULAR HGB CONC 32.4 g/dL (32.0-36.0); MEAN CORPUSCULAR VOLUME 91.5 fL (80.0-94.0); MEAN PLATELET VOLUME 9.5 fL (7.4-11.4); MONOCYTES # (AUTO) 0.8 10^3/uL (0.0-1.0); MONOCYTES % (AUTO) 20.5 %; NEUTROPHILS % (AUTO) 54.3 %; PLT - PLATELET COUNT 59 10^3/uL (130-450); RED BLOOD COUNT 2.36 10^6/uL (4.70-6.10); RED CELL DISTRIBUTION WIDTH 24.3 % (12.0-15.0); WHITE BLOOD COUNT 3.7 x10^3/uL (4.8-10.8)
[2024-09-16 04:47] LABS: CALCIUM, IONIZED 1.17 mmol/L (1.09-1.30); VBG PH 7.456 (7.31-7.41)
[2024-09-16 04:50] LABS: SLIDE REVIEW? Indicated
[2024-09-16 04:56] LABS: MAGNESIUM 1.8 mg/dL (1.7-2.3)
[2024-09-16 05:02] LABS: CALCIUM 8.3 mg/dL (8.5-10.3); CREATININE 1.6 mg/dL (0.6-1.3); PHOSPHORUS 2.5 mg/dL (2.5-5.0); POTASSIUM 4.1 mmol/L (3.5-4.5)
[2024-09-16 05:20] LABS: PLATELET ESTIMATE, MANUAL DECREASED (<130,000) (NORMAL); PLATELET MORPHOLOGY NORMAL APPEARANCE (NORMAL); WBC MORPHOLOGY (MULTIPLE) NORMAL APPEARANCE (NORMAL)
[2024-09-16] MEDS: MAGNESIUM OXIDE 400 MG TABLET PO ONE ×2 (06:02→12:04)
[2024-09-16] MEDS: ALBUMIN 25% 12.5 GM/50 ML VIAL IV STA (08:26)
--- NOTE | 2024-09-16 08:52 | PROVIDER PROGRESS NOTE ---
Subjective Subjective Subjective: This morning, patient is feeling okay. He has had some urinary retention which is new for him. He had two good bowel movements with no blood noted in them. He has no dizziness or light headedness. Patient expresses frustration at being here in the hospital when he feels good. His labs indicate that he is in DIC due to his extensive liver cirrhosis. I explained that this is a life-threatening condition, and may cause severe bleeding, or clots. The risks of leaving AMA include . Previously, I had spoken with a education courses sales representative, as well as a intensive care doctor at [facility]. Plans were for transfer over there to higher level of care with further specialists which can be required if the patient decompensates. They accepted the patient, and there was a bed available for him. Despite explaining the risk of staying here including worsening coagulopathy, worsening hypotension, no hepatology support, no GI support, patient stated that he would not like to be transferred. At this time, he is agreeable to transfer, but there are no beds at this time. Current Medications Current Medications Current Medications: Current Medications Generic Name Dose Route Start Last Admin Trade Name Gurmeetq PRN Reason Stop Dose Admin Docusate Sodium 250 - 500 mg 09/13/24 10:00 09/16/24 08:26 Docusate Sodium 250 Mg Capsule PO 250 mg DAILY KOMAL Administration Folic Acid 1 mg 09/10/24 16:27 09/16/24 08:27 Folic Acid 1 Mg Tablet PO 1 mg DAILY KOMAL Administration Norepinephrine/Sodium Chloride 8 mg in 250 mls @ 15 mls/hr 09/10/24 13:00 09/15/24 15:45 Levophed 8 Mg/250-0.9% Nacl IV 0 mcg/min .[id number] KOMAL 0 mls/hr Titration Protocol 8 MCG/MIN Sodium Chloride 500 mls @ 20 mls/hr 09/10/24 19:52 Normal Saline 0.9% IV Q24H PRN TKO RATE Vancomycin HCl 1 gm/ 250 mls @ 167 mls/hr 09/14/24 21:00 09/15/24 23:00 Vancomycin HCl 250 mg/ Sodium IV Infused Chloride BID KOMAL Infusion Albumin Human 12.5 gm in 50 mls @ 50 mls/hr 09/16/24 08:04 09/16/24 08:39 Albuminar-25 IV 09/16/24 09:03 Infused ONCE STA Infusion Midodrine 10 mg 09/11/24 09:00 09/16/24 06:02 Midodrine 10 Mg Tablet PO 10 mg TID KOMAL Administration Multivitamins/Minerals 1 tab 09/10/24 21:00 09/15/24 21:13 Multivitamin W/Minerals Tablet PO 1 tab QPM KOMAL Administration Ondansetron HCl 4 mg 09/10/24 16:27 Ondansetron Odt 4 Mg Tablet TL Q6HR PRN Nausea / Vomiting Ondansetron HCl 4 mg 09/10/24 16:27 Ondansetron 4 Mg/2 Ml Vial IVP Q6HR PRN Nausea / Vomiting Pantoprazole Sodium 40 mg 09/10/24 21:00 09/16/24 08:26 Pantoprazole 40 Mg Tablet PO 40 mg BID KOMAL Administration Polyethylene Glycol 17 gm 09/13/24 10:00 09/16/24 08:26 Polyethylene Glycol 3350 17 Gm Packet PO 17 gm DAILY KOMAL Administration Senna 8.6 - 17.2 mg 09/13/24 10:00 09/16/24 08:27 Senna 8.6 Mg Tablet PO 8.6 mg DAILY KOMAL Administration Sodium Chloride 10 ml 09/10/24 19:52 09/15/24 21:46 Sodium Chloride Flush 0.9% 10 Ml Syringe IVP 10 ml PRN PRN Administration Per Line Care protocol Thiamine HCl 100 mg 09/10/24 16:27 09/16/24 08:27 Thiamine 100 Mg Tablet PO 100 mg DAILY KOMAL Administration Objective Vital Signs/Intake & Output Reviewed Vital Signs: Yes Vital Signs: Vital Signs x48h Temp Pulse Resp BP Pulse Ox 09/16/24 08:00 99.1 F 68 16 109/62 95 09/16/24 07:00 72 14 94/54 L 95 09/16/24 06:08 76 18 95/53 L 95 09/16/24 05:04 70 19 95/71 98 09/16/24 04:00 98.1 F 68 16 72/49 L 91 L 09/16/24 03:00 74 17 90/56 L 91 L 09/16/24 02:00 72 16 93/52 L 98 09/16/24 01:00 66 15 90/51 L 94 Intake & Output: Intake & Output 09/13/24 09/14/24 09/15/24 04/28/25 23:59 23:59 23:59 23:59 Intake Total 1662 / 1662 1790 / 1790 3306 / 3306 550 / 550 Output Total 8200 / 8200 1075 / 1075 152 / 152 55 / 55 Balance -6538 / -6538 715 / 715 3154 / 3154 495 / 495 Weight (kg) 107 kg 107.5 kg 106.5 kg 109 kg Objective General Appearance: positive No acute distress and Alert Eyes Bilateral: positive PERRL, EOMI and Other (scleral icterus) ENT: positive ENT inspection nml, Pharynx nml and No signs of dehydration Neck: positive Nml inspection, Thyroid nml and No JVD Respiratory: positive Chest non-tender, No respiratory distress, Breath sounds nml, Rhonchi and Other (Large area of ecchymosis on right chest wall. Subclavian site with some oozing, gauze in place.); negative Wheezes or Rales Cardiovascular: positive Regular rate & rhythm, No murmur and No gallop; negative Tachycardia or Bradycardia Abdomen: positive Non-tender, No organomegaly and Other (Distention d/t ascites. No guarding or masses. Improved since admission.) Back: positive Nml inspection; negative CVA tenderness (R) or CVA tenderness (L) Skin: positive Other (large area of ecchymoses noted in R shoulder area near subclavian line. jaundice.) Extremities: positive Non-tender, Full ROM and No pedal edema Neurologic/Psychiatric: positive Oriented x3, Motor nml and Mood/affect nml Lab Results 09/16/24 04:30 09/16/24 04:30 Other Labs: Lab Results x24hrs 09/16/24 09/16/24 09/16/24 Range/Units 04:30 04:30 04:30 WBC 3.7 L (4.8-10.8) x10^3/uL RBC 2.36 L (4.70-6.10) 10^6/uL Hgb 7.0 L* (14.0-18.0) g/dL Hct 21.6 L (42.0-52.0) % MCV 91.5 (80.0-94.0) fL MCH 29.7 (27.0-31.0) pg MCHC 32.4 (32.0-36.0) g/dL RDW 24.3 H (12.0-15.0) % Plt Count 59 L (130-450) 10^3/uL MPV 9.5 (7.4-11.4) fL Neut # (Auto) 2.0 (1.5-6.6) 10^3/uL Lymph # (Auto) 0.8 L (1.5-3.5) 10^3/uL Custer # (Auto) 0.8 (0.0-1.0) 10^3/uL Eos # (Auto) 0.1 (0.0-0.7) 10^3/uL Baso # (Auto) 0.0 (0.0-0.1) 10^3/uL Absolute Nucleated RBC 0.00 x10^3/uL Nucleated RBC % 0.0 /100WBC Manual Slide Review Indicated WBC Morphology NORMAL APPEARANCE (NORMAL) Platelet Estimate DECREASED (<130,000) (NORMAL) Platelet Morphology NORMAL APPEARANCE (NORMAL) RBC Morph Micro Appear 1+ OVALOCYTES 1+ HYPOCHROMASIA 2+ ANISOCYTOSIS (NORMAL) PT (9.9-12.6) secs INR (0.8-1.2) APTT (24.9-33.3) secs Fibrinogen (220-496) mg/dL D-Dimer (200.0-255.0) ng/mL VBG pH 7.456 H (7.31-7.41) Ionized Calcium 1.17 (1.09-1.30) mmol/L Sodium 135 (135-145) mmol/L Potassium 4.1 (3.5-4.5) mmol/L Chloride 108 (101-111) mmol/L Carbon Dioxide 22 (21-32) mmol/L Anion Gap 5.0 L (6-13) BUN 10 (6-20) mg/dL Creatinine 1.6 H (0.6-1.3) mg/dL Estimated GFR (MDRD) 43 L (>89) Glucose 97 (74-104) mg/dL Calcium 8.3 L (8.5-10.3) mg/dL Phosphorus 2.5 (2.5-5.0) mg/dL Magnesium 1.8 (1.7-2.3) mg/dL Ammonia 58.1 (18-72) umol/L Stl Occult Blood (IFOB) (NEGATIVE) Blood Type Antibody Screen Crossmatch IS Only 09/15/24 09/15/24 09/15/24 Range/Units 15:47 12:20 08:00 WBC 3.2 L (4.8-10.8) x10^3/uL RBC 2.47 L (4.70-6.10) 10^6/uL Hgb 7.6 L (14.0-18.0) g/dL Hct 22.3 L (42.0-52.0) % MCV 90.3 (80.0-94.0) fL MCH 30.8 (27.0-31.0) pg MCHC 34.1 (32.0-36.0) g/dL RDW 22.9 H (12.0-15.0) % Plt Count 35 L* (130-450) 10^3/uL MPV 9.3 (7.4-11.4) fL Neut # (Auto) (1.5-6.6) 10^3/uL Lymph # (Auto) (1.5-3.5) 10^3/uL Custer # (Auto) (0.0-1.0) 10^3/uL Eos # (Auto) (0.0-0.7) 10^3/uL Baso # (Auto) (0.0-0.1) 10^3/uL Absolute Nucleated RBC x10^3/uL Nucleated RBC % /100WBC Manual Slide Review WBC Morphology (NORMAL) Platelet Estimate (NORMAL) Platelet Morphology (NORMAL) RBC Morph Micro Appear (NORMAL) PT 42.0 H (9.9-12.6) secs INR 3.9 H (0.8-1.2) APTT 59.8 H (24.9-33.3) secs Fibrinogen 110 L 78 L* (220-496) mg/dL D-Dimer > 1050.0 H (200.0-255.0) ng/mL VBG pH (7.31-7.41) Ionized Calcium (1.09-1.30) mmol/L Sodium (135-145) mmol/L Potassium (3.5-4.5) mmol/L Chloride (101-111) mmol/L Carbon Dioxide (21-32) mmol/L Anion Gap (6-13) BUN (6-20) mg/dL Creatinine (0.6-1.3) mg/dL Estimated GFR (MDRD) (>89) Glucose (74-104) mg/dL Calcium (8.5-10.3) mg/dL Phosphorus (2.5-5.0) mg/dL Magnesium (1.7-2.3) mg/dL Ammonia (18-72) umol/L Stl Occult Blood (IFOB) NEGATIVE (NEGATIVE) Blood Type Antibody Screen Crossmatch IS Only 09/14/24 Range/Units 06:17 WBC (4.8-10.8) x10^3/uL RBC (4.70-6.10) 10^6/uL Hgb (14.0-18.0) g/dL Hct (42.0-52.0) % MCV (80.0-94.0) fL MCH (27.0-31.0) pg MCHC (32.0-36.0) g/dL RDW (12.0-15.0) % Plt Count (130-450) 10^3/uL MPV (7.4-11.4) fL Neut # (Auto) (1.5-6.6) 10^3/uL Lymph # (Auto) (1.5-3.5) 10^3/uL Custer # (Auto) (0.0-1.0) 10^3/uL Eos # (Auto) (0.0-0.7) 10^3/uL Baso # (Auto) (0.0-0.1) 10^3/uL Absolute Nucleated RBC x10^3/uL Nucleated RBC % /100WBC Manual Slide Review WBC Morphology (NORMAL) Platelet Estimate (NORMAL) Platelet Morphology (NORMAL) RBC Morph Micro Appear (NORMAL) PT (9.9-12.6) secs INR (0.8-1.2) APTT (24.9-33.3) secs Fibrinogen (220-496) mg/dL D-Dimer (200.0-255.0) ng/mL VBG pH (7.31-7.41) Ionized Calcium (1.09-1.30) mmol/L Sodium (135-145) mmol/L Potassium (3.5-4.5) mmol/L Chloride (101-111) mmol/L Carbon Dioxide (21-32) mmol/L Anion Gap (6-13) BUN (6-20) mg/dL Creatinine (0.6-1.3) mg/dL Estimated GFR (MDRD) (>89) Glucose (74-104) mg/dL Calcium (8.5-10.3) mg/dL Phosphorus (2.5-5.0) mg/dL Magnesium (1.7-2.3) mg/dL Ammonia (18-72) umol/L Stl Occult Blood (IFOB) (NEGATIVE) Blood Type B POSITIVE Antibody Screen NEGATIVE Crossmatch IS Only See Detail ABX Reporting Has patient been on IV antibiotics over the past 48 hours?: Yes Sepsis Event Note (H) Evaluation Current Stage of Sepsis: Ruled out Assessment/Plan Problem List (1) Disseminated intravascular coagulation (DIC) syndrome: Impression: Patient continues to have oozing from his IV sites, as well as a subclavian central line. He has a large hematoma and diffuse ecchymosis across his right chest wall. DIC panel was ordered: D-dimer is elevated, PT, PTT are prolonged. His platelets have remained low. His fibrinogen was 78. Patient has history of prostate adenocarcinoma and follows up with an oncologist at [facility], and I spoke with hospital medical assistant/oncologist on-call there, Dr. Romero. He is in agreement that this is likely acute DIC exacerbated by his underlying hepatic disease. Treatment is supportive, as we have been doing for the past few days. Aim for fibrinogen level greater than 100. He recommends cryoprecipitate transfusion for this which he received 09/15. He states that he is available for consultation via phone if needed, but thinks that the patient may be a good candidate for transfer. In the meantime, we will continue supportive care for DIC. Goal is platelets greater than 50 with active bleeding (this morning, they have responded well), and a fibrinogen level greater than 100, and hemoglobin greater than 7. During the stay now, he has received 6 units of PRBCs, 2 units of FFP's, as well as 1 unit of pooled cryoprecipitate. Patient has now been off Levophed for over 12 hours. Midodrine 10mg TID is continued. I have called the following hospitals: [facility]: They are completely full, as well as boarding patients, unable to accommodate at this time. [facility]: They are completely full as well, advised to call back later. [facility]: There is no specific [facility] need, so they recommend transfer elsewhere. (2) Acute urinary retention: Impression: Patient developed new onset acute urinary retention overnight. His PVRs/bladder scans are showing greater than 500 cc of urine. Multiple attempts at straight catheterization with resistance noted. Patient does have a history of prostate adenocarcinoma. Urology consultedpatient has been made n.p.o., plan for possible flexible cystoscopy, urethral dilatation, possible suprapubic tube in the evening today. Patient made NPO. (3) Acute hypotension: Impression: - May be attributed to sepsis/underlying infection. The only real source of infection may have been his peritoneal fluid. However, diagnostic paracentesis was done when he first got here, and there were less than 50 WBCs. Treated initially as patient was hypotensive. 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 His Rocephin was switched to vancomycin. Repeat blood cultures are negative; there is concern that this was a contaminiation as it was 1/2, repeat blood cultures are negative. They have now been negative for 48 hours. I will stop vancomycin today, he has now completed a 7 day course of IV antibiotics. I will continue his oral Bactrim, his prophylaxis. ECHO is ordered. MRSA swab was negative. - Hypotension may more likely be attributed to DIC as stated above. No GI bleeding noted at this time - had 2 bowel movements on 09/15 with no blood - patient does have recent history of rectal AVM s/p coagulation at [facility] in 07/16. He also has a hematoma in his right arm. Continue to trend H&H, platelets, fibrinogen with transfusion parameters as stated above. - Continue midodrine 10mg TID. At baseline now, patient has hypotension due to use extensive cirrhosis, splanchnic hypertension which is linked to systemic hypotension. (4) Ascites due to alcoholic hepatitis: Impression: The patient has had complications from alcoholic cirrhosis for years and recently had therapeutic paracentesis at in June 2024. He has had multiple ER visits since March 2024 due to melena, hypotension and complications of cirrhosis. At a visit at , addiction counseling was discussed with the patient and he wanted to try abstinence before following up with an outpatient addiction clinic, according to medical records. However, the patient has continued to consume alcohol. - IR completed paracentesis 09/13, removed 3.6 L. Received albumin. - Discussed with Dr. Araiza, education courses sales representative, and Dr. Mendez, ICU doctor at [facility] regarding this patient's care. Agreeable to transfer to ICU for higher level care in setting of cirrhosis and further capabilities present at . Patient refused transfer after it was set up on 09/12. On 09/15, with increasing transfusion product requirements, transfer was brought up again. Patient is reluctantly agreeable at this time. However, all the hospitals called so far are full. - Patient is not encephalopathic. Ammonia level within normal limits. - Pfbgf-Hckttfu-Twiw score is 13, indicating a life expectancy of 1-3 years. MELD score is 31, indicating the patient's 3-month mortality rate is 52.6%. Maddrey's Discriminant Function score is 140.0. Consider prednisolone. (5) Severe anemia: Impression: - Continue to transfuse for Hb < 7. - Patient will be encouraged to follow up with his education courses sales representative after hospitalization. (6) Acute renal failure: Impression: - Resolved. Patient's renal failure is likely due to hepatorenal syndrome. Creatinine has normalized. Still holding spirnalactone and Lasix due to hypotension. Has received albumin and midodrine. Qualifiers: Acute renal failure type: unspecified Qualified Code(s): N17.9 - Acute kidney failure, unspecified (7) Elevated bilirubin: Impression: - Patient's total bilirubin is 7.5 mg/dL and is elevated d/t cirrhosis, likely congestive hepatopathy. Continue to trend. (8) Prostate cancer: Impression: - Patient was diagnosed and treated for prostate adenocarcinoma in 2020. He has a follow-up appt. scheduled with oncology. Currently remains on Lupron. (9) Essential hypertension: Impression: - Patient previously had HTN controlled with felodipine, irbesartan, and nadolol. Continue holding antihypertensives indefinitely. (10) Dyslipidemia: Impression: - Patient's simvastatin is on hold due to transaminitis and hyperbilirubinemia. (11) Paroxysmal atrial fibrillation: Impression: - Patient continues to go in and out of atrial fibrillation. He is not currently on anticoagulation; INR is elevated due to liver disease.
[2024-09-16 10:05] LABS: VANCOMYCIN,TROUGH 33.5 ug/mL
[2024-09-16] MEDS: SULFAMETH/TRIMETH DS 800/160 MG TABLET PO SCH (11:11)
[2024-09-16] MEDS: MIDODRINE 10 MG TABLET PO SCH (11:11)
[2024-09-16] MEDS: TRANEXAMIC ACID 1,000 MG/10 ML VIAL TOP ONE (12:05)
[2024-09-16 15:43] LABS: HCT - HEMATOCRIT 24.2 % (42.0-52.0); HGB - HEMOGLOBIN 8.2 g/dL (14.0-18.0); MEAN CORPUSCULAR HEMOGLOBIN 30.9 pg (27.0-31.0); MEAN CORPUSCULAR HGB CONC 33.9 g/dL (32.0-36.0); MEAN CORPUSCULAR VOLUME 91.3 fL (80.0-94.0); MEAN PLATELET VOLUME 8.8 fL (7.4-11.4); RED BLOOD COUNT 2.65 10^6/uL (4.70-6.10); RED CELL DISTRIBUTION WIDTH 23.8 % (12.0-15.0); WHITE BLOOD COUNT 3.8 x10^3/uL (4.8-10.8)
[2024-09-16] MEDS: PANTOPRAZOLE 40 MG TABLET PO SCH (16:06)
--- NOTE | 2024-09-16 21:19 | CONSULTATION NOTE ---
Referring Provider Name of Referring Provider:: Dr Fuller Consult Date: 09/16/24 Chief Complaint Chief Complaint Chief Complaint: urinary retention History of Present Illness Admitted From Admitted From:: ER History Obtained From Records Reviewed: Hospital History obtained from: patient and Hospitalist Exam Limitations: none History of Present Illness HPI Comment/Other: Tavon is a 68-year-old male with complex medical history including alcoholic cirrhosis, prostate cancer treated with EBRT and ADT. We do not have his urological records but this is per his verbal history. He states he recently finished radiation within the last 6 months. He also states he has a Lupron shot due in February. He has been admitted to the hospital for the last several days with a combination of decompensated alcoholic cirrhosis and DIC. He is no longer actively bleeding but still is on a transfusion protocol. He states he had relatively few urinary complaints until yesterday and earlier today where he has found it very difficult to urinate with pain with urination and crampy pains. Urinates roughly every hour and he is able to get out some urine about 50 cc He is not in acute pain. His creatinine has worsened in the last several days from 1.0-1.6. A bladder scan was performed however this did show a significant retention but as he has ascites it is unclear if this is from his bladder or from peritoneal fluid. A catheter was tempted to be placed multiple times by nursing staff and they are unable to place this. Urology was consulted. As he is not an extremis he was not asked to be transferred as urology was not available today until later. [facility] Active Problems All Active Problems (Updated 09/16/24 @ 15:04 by Susan Fuller MD) Acute urinary retention (Acute) Disseminated intravascular coagulation (DIC) syndrome (Acute) Paroxysmal atrial fibrillation (Acute) Elevated bilirubin (Acute) Lactic acidosis (Acute) Acute renal failure (Acute) Pancytopenia (Acute) Acute hypotension (Acute) End stage liver disease (Acute) Severe anemia (Acute) Septic shock (Acute) Pneumonia (Acute) Hypotension (Acute) Near syncope (Acute) Status post abdominal paracentesis (Acute) Ascites due to alcoholic hepatitis (Acute) Obesity (BMI 30-39.9) (Acute) History of lower GI bleeding (Acute) Alcoholism (Chronic) BPH with elevated PSA (Chronic 03/04/20) Prostate cancer (Chronic 01/12/23) Essential hypertension (Chronic 01/12/23) Alcoholic cirrhosis of liver (Chronic 11/26/20) Dyslipidemia (Chronic 05/22/1959) 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) BMI 40.0-44.9, adult (Chronic 09/01/22) Medical History Medical History Arthritis of right knee (03/04/21) Chest pain (11/15/20) Allergic dermatitis (02/18/14) Hyperbilirubinemia (11/26/20) Internal derangement of left knee (06/30/17) Epicondylitis, lateral, right (03/25/15) Thrombocytopenia (11/26/20) Dark stools Degenerative joint disease of knee, right Reflux esophagitis Family history of colon cancer (08/31/20) Family history of cirrhosis of liver (11/26/20) Helicobacter pylori gastritis (10/23/06) Surgical History Surgical History History of colonoscopy History of endoscopy (~2020) EGD/Colonoscopy ([facility]) History of Bria fundoplication (~2006) laparoscopic Family History Family History Mother High blood pressure Cerebral hemorrhage Sister Colon cancer Brother Prostate cancer Father No problems noted. Social History Social History Smoking Status: Never smoker Do you dip or chew tobacco?: No Do you vape?: No Living arrangement: At home Marital Status: Living Condition: With spouse/s.o. Relationship: Spouse Level: Assisted Home Mobility Equipment: Cane Do you feel safe in your home environment?: Yes Suffered physical, verbal, emotional, or financial abuse?: No History of Abuse: No ETOH Use: None and Wine Frequency: Daily Number of Amount/day: 1 Substance Use: denies use Meds/Allgy Home Medications Ambulatory Orders Medication Instructions Recorded Confirmed simvastatin 40 mg tablet 40 mg PO QPM 05/02/24 09/10/24 furosemide 40 mg tablet 40 mg PO DAILY 07/04/24 09/11/24 multivitamin 1 tab PO QPM 07/04/24 09/10/24 pantoprazole 40 mg tablet,delayed 40 mg PO BID 07/04/24 09/10/24 release spironolactone 100 mg tablet 100 mg PO DAILY 07/04/24 09/11/24 thiamine mononitrate (vit B1) 100 100 mg PO QDAY 07/04/24 09/10/24 mg tablet folic acid 1 mg tablet 1 mg PO DAILY 09/12/24 09/12/24 sulfamethoxazole 800 1 tab PO DAILY 09/12/24 09/12/24 mg-trimethoprim 160 mg tablet Allergies Allergies Allergy/AdvReac Type Severity Reaction Status Date / Time grass pollen Allergy Mild Sneezing, Verified 09/10/24 10:49 runny nose, itchy eyes Results Lab Results Lab results reviewed: Yes 09/16/24 15:39 09/16/24 04:30 Other Lab Results: Lab Results x24hrs 09/16/24 09/16/24 09/16/24 Range/Units 15:39 09:38 04:30 WBC 3.8 L (4.8-10.8) x10^3/uL RBC 2.65 L (4.70-6.10) 10^6/uL Hgb 8.2 L (14.0-18.0) g/dL Hct 24.2 L (42.0-52.0) % MCV 91.3 (80.0-94.0) fL MCH 30.9 (27.0-31.0) pg MCHC 33.9 (32.0-36.0) g/dL RDW 23.8 H (12.0-15.0) % Plt Count 52 L (130-450) 10^3/uL MPV 8.8 (7.4-11.4) fL Neut # (Auto) (1.5-6.6) 10^3/uL Lymph # (Auto) (1.5-3.5) 10^3/uL [place] # (Auto) (0.0-1.0) 10^3/uL Eos # (Auto) (0.0-0.7) 10^3/uL Baso # (Auto) (0.0-0.1) 10^3/uL Absolute Nucleated RBC x10^3/uL Nucleated RBC % /100WBC Manual Slide Review WBC Morphology (NORMAL) Platelet Estimate (NORMAL) Platelet Morphology (NORMAL) RBC Morph Micro Appear 1+ OVALOCYTES (NORMAL) Fibrinogen 110 L (220-496) mg/dL VBG pH 7.456 H (7.31-7.41) Ionized Calcium 1.17 (1.09-1.30) mmol/L Sodium 135 (135-145) mmol/L Potassium 4.1 (3.5-4.5) mmol/L Chloride 108 (101-111) mmol/L Carbon Dioxide 22 (21-32) mmol/L Anion Gap 5.0 L (6-13) BUN 10 (6-20) mg/dL Creatinine 1.6 H (0.6-1.3) mg/dL Estimated GFR (MDRD) 43 L (>89) Glucose 97 (74-104) mg/dL Calcium 8.3 L (8.5-10.3) mg/dL Phosphorus 2.5 (2.5-5.0) mg/dL Magnesium 1.8 1.8 (1.7-2.3) mg/dL Ammonia 58.1 (18-72) umol/L Last Dose Date UNK Last Dose Time UNK Vancomycin Trough 33.5 H* ug/mL Blood Type Antibody Screen Crossmatch IS Only 09/16/24 09/16/24 09/14/24 Range/Units 04:30 04:30 06:17 WBC 3.7 L (4.8-10.8) x10^3/uL RBC 2.36 L (4.70-6.10) 10^6/uL Hgb 7.0 L* (14.0-18.0) g/dL Hct 21.6 L (42.0-52.0) % MCV 91.5 (80.0-94.0) fL MCH 29.7 (27.0-31.0) pg MCHC 32.4 (32.0-36.0) g/dL RDW 24.3 H (12.0-15.0) % Plt Count 59 L (130-450) 10^3/uL MPV 9.5 (7.4-11.4) fL Neut # (Auto) 2.0 (1.5-6.6) 10^3/uL Lymph # (Auto) 0.8 L (1.5-3.5) 10^3/uL [place] # (Auto) 0.8 (0.0-1.0) 10^3/uL Eos # (Auto) 0.1 (0.0-0.7) 10^3/uL Baso # (Auto) 0.0 (0.0-0.1) 10^3/uL Absolute Nucleated RBC 0.00 x10^3/uL Nucleated RBC % 0.0 /100WBC Manual Slide Review Indicated WBC Morphology NORMAL APPEARANCE (NORMAL) Platelet Estimate DECREASED (<130,000) (NORMAL) Platelet Morphology NORMAL APPEARANCE (NORMAL) RBC Morph Micro Appear 1+ HYPOCHROMASIA 2+ ANISOCYTOSIS (NORMAL) Fibrinogen (220-496) mg/dL VBG pH (7.31-7.41) Ionized Calcium (1.09-1.30) mmol/L Sodium (135-145) mmol/L Potassium (3.5-4.5) mmol/L Chloride (101-111) mmol/L Carbon Dioxide (21-32) mmol/L Anion Gap (6-13) BUN (6-20) mg/dL Creatinine (0.6-1.3) mg/dL Estimated GFR (MDRD) (>89) Glucose (74-104) mg/dL Calcium (8.5-10.3) mg/dL Phosphorus (2.5-5.0) mg/dL Magnesium (1.7-2.3) mg/dL Ammonia (18-72) umol/L Last Dose Date Last Dose Time Vancomycin Trough ug/mL Blood Type B POSITIVE Antibody Screen NEGATIVE Crossmatch IS Only See Detail Exam Exam Vital Signs: Vital Signs x48h Temp Pulse Resp BP Pulse Ox 09/16/24 21:00 65 26 H 107/47 L 94 09/16/24 20:00 36.8 C 68 21 114/65 95 09/16/24 18:50 66 16 100/58 L 94 09/16/24 18:00 63 19 94/60 95 09/16/24 17:00 58 L 12 96/54 L 94 09/16/24 16:00 59 L 16 96/54 L 96 09/16/24 15:00 60 12 98/61 95 09/16/24 14:17 36.8 C 09/16/24 14:00 60 18 98/53 L 98 09/16/24 13:35 36.8 C 62 17 104/56 L 95 NAD distended abdomen no suprapubic tenderness circ phalus Conclusion/Plan Problem List (1) Disseminated intravascular coagulation (DIC) syndrome: (2) Acute urinary retention: Plan: 68-year-old male with history of prostate cancer and EBRT now with possible acute urinary retention though more likely just small volume voiding related to pressure from abdominal ascites, but unable to place a catheter regardless. I attempted to place a 14 [place] coud silicone catheter, I was unable to place this. There was resistance at the bladder neck or possibly the prostate. He was able to void for me and I could see him void about 50 cc. It was not bloody. I do not think he needs an emergent procedure. I will not take him the OR tonight unless there is a change in his status. We did discuss cystoscopy, possible urethral dilation possible complex Muniz catheter placement tomorrow. I have made him n.p.o. I have talked to the hospitalist team and will add him on for surgery tomorrow Patient states understanding and consents the above plan Further urological management of prostate cancer per his outside urologist/radiation oncologist (3) Acute hypotension: (4) Ascites due to alcoholic hepatitis: (5) Severe anemia: (6) Acute renal failure: Qualifiers: Acute renal failure type: unspecified Qualified Code(s): N17.9 - Acute kidney failure, unspecified (7) Elevated bilirubin: (8) Prostate cancer: (9) Essential hypertension: (10) Dyslipidemia: (11) Paroxysmal atrial fibrillation: Lab Results Lab results reviewed: Yes 09/16/24 15:39 09/16/24 04:30
[2024-09-17 04:40] LABS: BASOPHILS % (AUTO) 0.6 %; EOSINOPHILS # (AUTO) 0.1 10^3/uL (0.0-0.7); EOSINOPHILS % (AUTO) 3.9 %; HCT - HEMATOCRIT 22.8 % (42.0-52.0); HGB - HEMOGLOBIN 7.9 g/dL (14.0-18.0); LYMPHOCYTES # (AUTO) 0.6 10^3/uL (1.5-3.5); LYMPHOCYTES % (AUTO) 16.3 %; MEAN CORPUSCULAR HEMOGLOBIN 31.6 pg (27.0-31.0); MEAN CORPUSCULAR HGB CONC 34.6 g/dL (32.0-36.0); MEAN CORPUSCULAR VOLUME 91.2 fL (80.0-94.0); MEAN PLATELET VOLUME 10.3 fL (7.4-11.4); MONOCYTES # (AUTO) 0.8 10^3/uL (0.0-1.0); MONOCYTES % (AUTO) 21.3 %; NEUTROPHILS # (AUTO) 2.1 10^3/uL (1.5-6.6); NEUTROPHILS % (AUTO) 57.3 %; PLT - PLATELET COUNT 57 10^3/uL (130-450); RED CELL DISTRIBUTION WIDTH 23.5 % (12.0-15.0); WHITE BLOOD COUNT 3.6 x10^3/uL (4.8-10.8)
[2024-09-17 04:53] LABS: ALBUMIN 2.2 g/dL (3.2-5.5); ALBUMIN/GLOBULIN RATIO 0.8 (1.0-2.2); BILIRUBIN,TOTAL 9.9 mg/dL (0.2-1.0); CALCIUM 8.4 mg/dL (8.5-10.3); CREATININE 2.8 mg/dL (0.6-1.3); POTASSIUM 4.2 mmol/L (3.5-4.5); TOTAL PROTEIN 5.1 g/dL (6.4-8.9)
[2024-09-17 05:11] LABS: CALCIUM, IONIZED 1.18 mmol/L (1.09-1.30); VBG PH 7.452 (7.31-7.41)
[2024-09-17 05:12] LABS: INR 2.6 (0.8-1.2)
[2024-09-17 05:15] LABS: SLIDE REVIEW? Indicated
[2024-09-17 05:31] LABS: PARTIAL THROMBOPLASTIN TIME 46.2 secs (24.9-33.3)
[2024-09-17 06:40] LABS: PLATELET ESTIMATE, MANUAL DECREASED (<130,000) (NORMAL); PLATELET MORPHOLOGY NORMAL APPEARANCE (NORMAL)
--- NOTE | 2024-09-17 10:01 | ANESTHESIA PROCEDURE NOTE ---
Pre-Anesthesia VS, & Labs Diagnosis Surgical Diagnosis:: Urinary retention Procedure Procedure: Flexible cystoscopy Vitals Vital Signs: Temp Pulse Resp BP Pulse Ox O2 Flow Rate 37.2 C 69 18 96/53 L 95 2 09/17/24 08:00 09/17/24 09:00 09/17/24 09:00 09/17/24 09:00 09/17/24 09:00 09/12/24 05:00 NPO NPO: >8 hours Lab Results Current Lab Results: Laboratory Tests 09/17/24 09:54: POC Whole Bld Glucose 92 09/17/24 04:28: RBC Morph Micro Appear 1+ OVALOCYTES, PT 28.0 H, INR 2.6 H, APTT 46.2 H, Fibrinogen 97 L*, VBG pH 7.452 H, Ionized Calcium 1.18, Sodium 134 L, Potassium 4.2, Chloride 108, Carbon Dioxide 22, Anion Gap 4.0 L, BUN 14, C reatinine 2.8 H, Estimated GFR (MDRD) 23 L, Glucose 98, Calcium 8.4 L, Phosphorus 3.0, Magnesium 2.0, Total Bilirubin 9.9 H, AST 49 H, ALT 22, Alkaline Phosphatase 66, Total Protein 5.1 L, Albumin 2.2 L, Globulin 2.9, A lbumin/Globulin Ratio 0.8 L 09/17/24 04:28: RBC Morph Micro Appear 1+ HYPOCHROMASIA 09/17/24 04:28: WBC 3.6 L, RBC 2.50 L, Hgb 7.9 L, Hct 22.8 L, MCV 91.2, MCH 31.6 H, MCHC 34.6, RDW 23.5 H, Plt Count 57 L, MPV 10.3, Neut # (Auto) 2.1, Lymph # (Auto) 0.6 L, [place] # (Auto) 0.8, Eos # (Auto) 0.1, Baso # (Auto) 0.0, Absolute Nucleated RBC 0.00, Nucleated RBC % 0.0, Manual Slide Review Indicated, Platelet Estimate DECREASED (<130,000), Platelet Morphology NORMAL APPEARANCE, RBC Morph Micro Appear 2+ ANISOCYTOSIS 09/16/24 15:39: WBC 3.8 L, RBC 2.65 L, Hgb 8.2 L, Hct 24.2 L, MCV 91.3, MCH 30.9, MCHC 33.9, RDW 23.8 H, Plt Count 52 L, MPV 8.8, Fibrinogen 110 L 09/16/24 09:38: Magnesium 1.8, Last Dose Date UNK, Last Dose Time UNK, V ancomycin Trough 33.5 H* 09/16/24 04:30: RBC Morph Micro Appear 1+ OVALOCYTES, VBG pH 7.456 H, Ionized Calcium 1.17, Sodium 135, Potassium 4.1, Chloride 108, Carbon Dioxide 22, Anion Gap 5.0 L, BUN 10, Creatinine 1.6 H, Estimated GFR (MDRD) 43 L, Glucose 97, C alcium 8.3 L, Phosphorus 2.5, Magnesium 1.8, Ammonia 58.1 09/16/24 04:30: RBC Morph Micro Appear 1+ HYPOCHROMASIA 09/16/24 04:30: WBC 3.7 L, RBC 2.36 L, Hgb 7.0 L*, Hct 21.6 L, MCV 91.5, MCH 29.7, MCHC 32.4, RDW 24.3 H, Plt Count 59 L, MPV 9.5, Neut # (Auto) 2.0, Lymph # (Auto) 0.8 L, [place] # (Auto) 0.8, Eos # (Auto) 0.1, Baso # (Auto) 0.0, Absolute Nucleated RBC 0.00, Nucleated RBC % 0.0, Manual Slide Review Indicated, WBC Morphology NORMAL APPEARANCE, Platelet Estimate DECREASED (<130,000), Platelet Morphology NORMAL APPEARANCE, RBC Morph Micro Appear 2+ ANISOCYTOSIS 09/15/24 15:47: WBC 3.2 L, RBC 2.47 L, Hgb 7.6 L, Hct 22.3 L, MCV 90.3, MCH 30.8, MCHC 34.1, RDW 22.9 H, Plt Count 35 L*, MPV 9.3, Fibrinogen 110 L 09/15/24 08:00: PT 42.0 H, INR 3.9 H, APTT 59.8 H, Fibrinogen 78 L*, D-Dimer > 1050.0 H 09/15/24 04:15: RBC Morph Micro Appear 1+ HYPOCHROMASIA, VBG pH 7.432 H, Ionized Calcium 1.18, Sodium 135, Potassium 4.0, Chloride 108, Carbon Dioxide 24, Anion Gap 3.0 L, BUN 7, Creatinine 1.0, Estimated GFR (MDRD) 75 L, Glucose 109 H, C alcium 8.1 L, Phosphorus 2.6, Magnesium 1.7 09/15/24 04:15: WBC 2.9 L, RBC 2.22 L, Hgb 7.1 L, Hct 20.3 L, MCV 91.4, MCH 32.0 H, MCHC 35.0, RDW 23.0 H, Plt Count 33 L*, MPV 9.8, Neut # (Auto) 1.6, Lymph # (Auto) 0.6 L, [place] # (Auto) 0.6, Eos # (Auto) 0.2, Baso # (Auto) 0.0, Absolute Nucleated RBC 0.00, Band Neuts % (Manual) Not Reportable, Abnorm Lymph % (Manual) Not Reportable, Nucleated RBC % 0.0, Neutrophils # (Manual) Not Reportable, Lymphocytes # (Manual) Not Reportable, Monocytes # (Manual) Not Reportable, Eosinophils # (Manual) Not Reportable, Basophils # (Manual) Not Reportable, Differential Comment MANUAL=AUTO DIFF, Manual Slide Review Indicated, WBC Morphology NORMAL APPEARANCE, Platelet Estimate DECREASED (<130,000), Platelet Morphology NORMAL APPEARANCE, RBC Morph Micro Appear 2+ ANISOCYTOSIS 09/14/24 12:45: RBC Morph Micro Appear 1+ HYPOCHROMASIA 09/14/24 12:45: WBC 3.2 L, RBC 2.29 L, Hgb 7.2 L, Hct 21.1 L, MCV 92.1, MCH 31.4 H, MCHC 34.1, RDW 23.9 H, Plt Count 39 L, MPV 9.6, Neut # (Auto) 1.8, Lymph # (Auto) 0.6 L, [place] # (Auto) 0.6, Eos # (Auto) 0.1, Baso # (Auto) 0.0, Absolute Nucleated RBC 0.00, Nucleated RBC % 0.0, Manual Slide Review Indicated, WBC Morphology NORMAL APPEARANCE, Platelet Estimate DECREASED (<130,000), Platelet Morphology NORMAL APPEARANCE, RBC Morph Micro Appear 2+ ANISOCYTOSIS 09/14/24 09:50: Potassium 4.1, Magnesium 1.7 09/14/24 06:17: Blood Type B POSITIVE, Antibody Screen NEGATIVE, Crossmatch IS Only See Detail 09/14/24 04:14: RBC Morph Micro Appear 1+ HYPOCHROMASIA, VBG pH 7.449 H, Ionized Calcium 1.20, Sodium 134 L, Potassium 3.9, Chloride 106, Carbon Dioxide 24, A nion Gap 4.0 L, BUN 7, Creatinine 1.0, Estimated GFR (MDRD) 75 L, Glucose 128 H, Calcium 8.5, Phosphorus 3.4, Magnesium 1.7 09/14/24 04:14: WBC 3.7 L, RBC 2.19 L, Hgb 6.9 L*, Hct 20.0 L*, MCV 91.3, MCH 31.5 H, MCHC 34.5, RDW 25.8 H, Plt Count 46 L, MPV 9.9, Neut # (Auto) 1.9, Lymph # (Auto) 0.9 L, [place] # (Auto) 0.7, Eos # (Auto) 0.2, Baso # (Auto) 0.0, Absolute Nucleated RBC 0.00, Nucleated RBC % 0.0, Manual Slide Review Indicated, WBC Morphology NORMAL APPEARANCE, Platelet Estimate DECREASED (<130,000), Platelet Morphology NORMAL APPEARANCE, RBC Morph Micro Appear 2+ ANISOCYTOSIS 09/13/24 10:20: Potassium 4.0 09/13/24 04:18: WBC 3.5 L, RBC 2.40 L, Hgb 7.5 L, Hct 21.7 L, MCV 90.4, MCH 31.3 H, MCHC 34.6, RDW 25.7 H, Plt Count 36 L, MPV 10.0, PT 39.7 H, INR 3.7 H, VBG pH 7.435 H, Ionized Calcium 1.23, Sodium 135, Potassium 3.8, Chloride 107, Carbon Dioxide 25, Anion Gap 3.0 L, BUN 9, Creatinine 1.2, Estimated GFR (MDRD) 60 L, G lucose 125 H, Calcium 8.8, Phosphorus 3.3, Magnesium 1.9 09/12/24 14:15: Hgb 7.7 L, Hct 21.8 L 09/12/24 11:35: Magnesium 1.9 09/12/24 04:45: WBC 3.5 L, RBC 2.32 L, Hgb 7.2 L, Hct 21.2 L, MCV 91.4, MCH 31.0, MCHC 34.0, RDW 26.3 H, Plt Count 42 L, MPV 10.4, PT 41.4 H, INR 3.8 H, VBG pH 7.410, Ionized Calcium 1.25, Sodium 136, Potassium 4.0, Chloride 108, Carbon Dioxide 24, Anion Gap 4.0 L, BUN 8, Creatinine 1.2, Estimated GFR (MDRD) 60 L, G lucose 116 H, Calcium 8.6, Phosphorus 3.3, Magnesium 1.5 L, Total Bilirubin 7.5 H, AST 58 H, ALT 27, Alkaline Phosphatase 80, Total Protein 5.4 L, Albumin 2.0 L , Globulin 3.4, Albumin/Globulin Ratio 0.6 L 09/11/24 21:31: Magnesium 1.5 L 09/11/24 09:49: PT 35.8 H, INR 3.3 H, Lactic Acid 1.8, Magnesium 1.5 L 09/11/24 04:15: RBC Morph Micro Appear 1+ OVALOCYTES, VBG pH 7.407, Ionized Calcium 1.21, Sodium 135, Potassium 4.2, Chloride 108, Carbon Dioxide 21, Anion Gap 6.0, BUN 12, Creatinine 1.4 H, Estimated GFR (MDRD) 51 L, Glucose 137 H, Calcium 8.6, Phosphorus 3.7, Magnesium 1.5 L 09/11/24 04:15: RBC Morph Micro Appear 2+ HYPOCHROMASIA 09/11/24 04:15: WBC 4.5 L, RBC 2.53 L, Hgb 8.0 L, Hct 23.1 L, MCV 91.3, MCH 31.6 H, MCHC 34.6, RDW 26.2 H, Plt Count 54 L, MPV 10.6, Neut # (Auto) 2.6, Lymph # (Auto) 0.9 L, [place] # (Auto) 0.9, Eos # (Auto) 0.1, Baso # (Auto) 0.0, Absolute Nucleated RBC 0.00, Nucleated RBC % 0.0, Manual Slide Review Indicated, Platelet Estimate DECREASED (<130,000), Platelet Morphology NORMAL APPEARANCE, RBC Morph Micro Appear 2+ ANISOCYTOSIS 09/10/24 11:40: Blood Type B POSITIVE, Antibody Screen NEGATIVE, Crossmatch IS Only See Detail 09/10/24 10:52: WBC 3.7 L, RBC 2.18 L, Hgb 6.9 L*, Hct 20.1 L, MCV 92.2, MCH 31.7 H, MCHC 34.3, RDW 27.8 H, Plt Count 46 L, MPV 10.4, Neut # (Auto) 2.4, L ymph # (Auto) 0.6 L, [place] # (Auto) 0.6, Eos # (Auto) 0.1, Baso # (Auto) 0.0, Absolute Nucleated RBC 0.00, Nucleated RBC % 0.0, Manual Slide Review Indicated, RBC Morph Micro Appear 4+ ANISOCYTOSIS, PT 34.7 H, INR 3.2 H, Sodium 132 L, Potassium 4.2, Chloride 106, Carbon Dioxide 18 L, Anion Gap 8.0, BUN 15, C reatinine 1.8 H, Estimated GFR (MDRD) 38 L, Glucose 108 H, Lactic Acid 3.8 H*, C alcium 8.4 L, Total Bilirubin 7.1 H, AST 63 H, ALT 30, Alkaline Phosphatase 89, Total Protein 5.6 L, Albumin 1.9 L, Globulin 3.7, Albumin/Globulin Ratio 0.5 L, Lipase 65 Lab results reviewed: Yes 09/17/24 04:28 09/17/24 04:28 Meds/Allgy Home Medications Ambulatory Orders Medication Instructions Recorded Confirmed simvastatin 40 mg tablet 40 mg PO QPM 05/02/24 09/10/24 furosemide 40 mg tablet 40 mg PO DAILY 07/04/24 09/11/24 multivitamin 1 tab PO QPM 07/04/24 09/10/24 pantoprazole 40 mg tablet,delayed 40 mg PO BID 07/04/24 09/10/24 release spironolactone 100 mg tablet 100 mg PO DAILY 07/04/24 09/11/24 thiamine mononitrate (vit B1) 100 100 mg PO QDAY 07/04/24 09/10/24 mg tablet sulfamethoxazole 800 1 tab PO DAILY 09/12/24 09/12/24 mg-trimethoprim 160 mg tablet folic acid 1 mg tablet See Rx Instructions .Route 09/16/24 .COMPLEX #30 tabs Allergies Allergies Allergy/AdvReac Type Severity Reaction Status Date / Time grass pollen Allergy Mild Sneezing, Verified 09/10/24 10:49 runny nose, itchy eyes PFSH Active Problems All Active Problems Acute urinary retention (Acute) Disseminated intravascular coagulation (DIC) syndrome (Acute) Paroxysmal atrial fibrillation (Acute) Elevated bilirubin (Acute) Lactic acidosis (Acute) Acute renal failure (Acute) Pancytopenia (Acute) Acute hypotension (Acute) End stage liver disease (Acute) Severe anemia (Acute) Septic shock (Acute) Pneumonia (Acute) Hypotension (Acute) Near syncope (Acute) Status post abdominal paracentesis (Acute) Ascites due to alcoholic hepatitis (Acute) Obesity (BMI 30-39.9) (Acute) History of lower GI bleeding (Acute) Alcoholism (Chronic) BPH with elevated PSA (Chronic 03/04/20) Prostate cancer (Chronic 01/12/23) Essential hypertension (Chronic 01/12/23) Alcoholic cirrhosis of liver (Chronic 11/26/20) Dyslipidemia (Chronic 05/22/1959) 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) BMI 40.0-44.9, adult (Chronic 09/01/22) Medical History Medical History Arthritis of right knee (03/04/21) Chest pain (11/15/20) Allergic dermatitis (02/18/14) Hyperbilirubinemia (11/26/20) Internal derangement of left knee (06/30/17) Epicondylitis, lateral, right (03/25/15) Thrombocytopenia (11/26/20) Dark stools Degenerative joint disease of knee, right Reflux esophagitis Family history of colon cancer (08/31/20) Family history of cirrhosis of liver (11/26/20) Helicobacter pylori gastritis (10/23/06) Surgical History Surgical History History of colonoscopy History of endoscopy (~2020) EGD/Colonoscopy ([facility]) History of Bria fundoplication (~2006) laparoscopic Family History Family History Mother High blood pressure Cerebral hemorrhage Sister Colon cancer Brother Prostate cancer Father No problems noted. Social History Social History Smoking Status: Never smoker Do you dip or chew tobacco?: No Do you vape?: No Living arrangement: At home Marital Status: Living Condition: With spouse/s.o. Relationship: Spouse Level: Assisted Home Mobility Equipment: Cane Do you feel safe in your home environment?: Yes Suffered physical, verbal, emotional, or financial abuse?: No History of Abuse: No ETOH Use: None and Wine Frequency: Daily Number of Amount/day: 1 Substance Use: denies use Anesthesia Exam (Expanded) Exam General: Alert, Oriented x3 and Cooperative Dental: WNL Mouth Openin Fingerbreadth Neck Mobility: Normal Mallampati classification: II Thyromental Distance: 4-6 cm Exam Exam Vital Signs: Vital Signs x48h Temp Pulse Resp BP Pulse Ox 09/17/24 09:00 69 18 96/53 L 95 09/17/24 08:00 37.2 C 67 22 80/45 L 94 09/17/24 07:00 68 12 90/49 L 91 L 09/17/24 06:13 63 12 82/54 L 93 09/17/24 05:06 71 24 82/47 L 93 09/17/24 04:00 37.0 C 66 15 81/52 L 92 09/17/24 03:00 71 14 80/49 L 94 Plan Plan Anesthesia Type: General Consent for Procedure(s) Verified and Reviewed: Yes Code Status: Attempt Resuscitation ASA Classification ASA classification: 4-Incapacitating disease Is this case an emergency?: Yes
[2024-09-17] MEDS: ONDANSETRON 4 MG/2 ML VIAL IVP PRN ×2 (10:23→14:39)
[2024-09-17] MEDS ORDERED: LIDOCAINE 2% URO-JET 5 ML SYRINGE UR ONE (11:35)
[2024-09-17] MEDS ORDERED: PROPOFOL 200 MG/20 ML VIAL IVP ONE (11:43)
[2024-09-17] MEDS ORDERED: PHENYLEPHRINE 10 MG/ML VIAL ONE (11:45)
[2024-09-17] MEDS ORDERED: ATROPINE ABBOJECT 1 MG/10 ML SYRINGE IVP PRN (11:50)
[2024-09-17] MEDS ORDERED: NALOXONE 0.4 MG/ML VIAL IVP PRN (11:50)
[2024-09-17] MEDS ORDERED: fentaNYL 100 MCG/2 ML VIAL ONE (12:26)
[2024-09-17] MEDS ORDERED: ceFAZolin 1 GM VIAL ONE (12:31)
--- NOTE | 2024-09-17 12:55 | OPERATIVE REPORT ---
Operative Report General Admit Date: 09/10/24 Procedure Data: Operation Date: 09/17/24 12:00 Proposed Procedures p Cystoscopy URETHRAL DILATION, ADAMS(Not Applicable) - Shantanu Dolan MD Anesthesia Type General Pre-Op Diagnosis: urinary retention Post Op Diagnosis: narrow urethra Procedure Note Findings: no obstruction Complications: none Other Other Information/Narrative: After informed consent was obtained the patient was brought to the OR and laid in the supine position. The patient was anesthetized per anesthesia protocols and prepped draped in the usual sterile fashion in the dorsolithotomy position. A formal timeout was performed reconfirming the patient, procedure and laterality. A 22 Polish cystoscope was advanced per urethra but we noted some narrowing of the urethra in the pendulous portion. As we reached the prostate itself the prostate we could see was quite wooden and white with a high riding bladder neck. There was no stricture per se or obvious obstruction. In the bladder itself we could see blanched mucosa with some ecchymoses and small mucosal hemorrhages. The urine was lucie. Uro-Jet was placed. A 22 Polish three-way Adams catheter was placed. This concluded the procedure and the patient tolerated the procedure well He was brought to ICU without further issue
[2024-09-17] MEDS: HYDROmorphone 0.5 MG/0.5 ML SYRINGE IVP PRN (13:06)
[2024-09-17] MEDS: LACTATED RINGERS 1,000 ML IV SCH (13:10)
[2024-09-17] MEDS: fentaNYL 100 MCG/2 ML VIAL IVP PRN (13:59)
--- NOTE | 2024-09-17 17:41 | PROVIDER PROGRESS NOTE ---
Subjective Prog Note Date Prog Note Date: 09/17/24 Prog Note Time: 14:38 Subjective Pt reports feeling: Improved Subjective: Tavon is a 68-year-old male with a history of prostate adenocarcinoma, alcoholic cirrhosis, and rectal arteriovenous malformation who presented to the ED with acute hypotension and presyncope. His condition eventually declined into DIC, and he was given PRBCs, albumin, fluids, FFP, platelets, and cryoprecipitate. He was later able to come off Levophed, and today, the patient is joined by his Antonieta. He was lethargic, but alert and oriented. The patient reported that he still feels bloated and has pain during urination since his catheter insertion. He reported that it feels like his bladder does not empty completely. He was nauseous and tried to vomit without success. A medication to stimulate his appetite, Remeron, was discussed, and the patient expressed wanting to return home tomorrow, as a transfer is no longer necessary. Current Medications Current Medications Current Medications: Current Medications Generic Name Dose Route Start Last Admin Trade Name Freq PRN Reason Stop Dose Admin Atropine Sulfate 0.5 mg 09/17/24 11:50 Atropine Abboject 1 Mg/10 Ml Syringe IVP 09/18/24 10:05 Q5M PRN Bradycardia Docusate Sodium 250 - 500 mg 09/13/24 10:00 09/17/24 08:34 Docusate Sodium 250 Mg Capsule PO 250 mg DAILY KOMAL Administration Fentanyl 25 - 50 mcg 09/17/24 11:50 09/17/24 13:59 Fentanyl 100 Mcg/2 Ml Vial IVP 09/18/24 10:05 50 mcg Q5M PRN Administration BREAKTHROUGH PAIN (2nd Choice) Folic Acid 1 mg 09/10/24 16:27 09/17/24 08:34 Folic Acid 1 Mg Tablet PO 1 mg DAILY KOMAL Administration Hydromorphone HCl 0.2 - 0.6 mg 09/17/24 11:50 09/17/24 13:06 Hydromorphone 0.5 Mg/0.5 Ml Syringe IVP 09/18/24 10:05 0.6 mg Q5M PRN Administration PAIN (First Choice) Sodium Chloride 500 mls @ 20 mls/hr 09/10/24 19:52 Normal Saline 0.9% IV Q24H PRN TKO RATE Lactated Ringer's 1,000 mls @ 100 mls/hr 09/17/24 11:50 09/17/24 13:45 Lr IV 09/17/24 21:49 Infused .Q10H KOMAL Infusion Midodrine 10 mg 09/16/24 12:00 09/17/24 13:10 Midodrine 10 Mg Tablet PO 10 mg 0600,1200,1800 KOMAL Administration Mirtazapine 15 mg 09/17/24 21:00 Mirtazapine 15 Mg Tablet PO QPM KOMAL Morphine Sulfate 2 - 4 mg 09/17/24 11:50 Morphine 2 Mg/Ml Carpuject IVP 09/18/24 10:05 Q5M PRN PAIN (3rd Choice) Multivitamins/Minerals 1 tab 09/10/24 21:00 09/16/24 21:12 Multivitamin W/Minerals Tablet PO 1 tab QPM KOMAL Administration Naloxone HCl 0.1 mg 09/17/24 11:50 Naloxone 0.4 Mg/Ml Vial IVP 09/18/24 10:05 Q2M PRN RESP RATE <8 Ondansetron HCl 4 mg 09/10/24 16:27 Ondansetron Odt 4 Mg Tablet TL Q6HR PRN Nausea / Vomiting Ondansetron HCl 4 mg 09/10/24 16:27 09/17/24 10:23 Ondansetron 4 Mg/2 Ml Vial IVP 4 mg Q6HR PRN Administration Nausea / Vomiting Ondansetron HCl 4 mg 09/17/24 11:50 Ondansetron 4 Mg/2 Ml Vial IVP 09/18/24 10:05 ONCE PRN N/V (First Choice) Pantoprazole Sodium 40 mg 09/16/24 16:00 09/17/24 06:06 Pantoprazole 40 Mg Tablet PO 40 mg BIDAC KOMAL Administration Polyethylene Glycol 17 gm 09/13/24 10:00 09/17/24 08:34 Polyethylene Glycol 3350 17 Gm Packet PO 17 gm DAILY KOMAL Administration Senna 8.6 - 17.2 mg 09/13/24 10:00 09/17/24 08:34 Senna 8.6 Mg Tablet PO 8.6 mg DAILY KOMAL Administration Sodium Chloride 10 ml 09/10/24 19:52 09/16/24 21:12 Sodium Chloride Flush 0.9% 10 Ml Syringe IVP 10 ml PRN PRN Administration Per Line Care protocol Thiamine HCl 100 mg 09/10/24 16:27 09/17/24 08:34 Thiamine 100 Mg Tablet PO 100 mg DAILY KOMAL Administration Trimethoprim/Sulfamethoxazole 1 tab 09/16/24 11:00 09/17/24 08:34 Sulfameth/Trimeth Ds 800/160 Mg Tablet PO 1 tab DAILY KOMAL Administration Objective Vital Signs/Intake & Output Reviewed Vital Signs: Yes Vital Signs: Vital Signs x48h Temp Pulse Pulse Resp BP BP Pulse Ox 09/17/24 14:00 62 10 L 91/53 L 94 09/17/24 13:48 36.5 C 63 10 L 90/53 L 93 09/17/24 13:43 62 10 L 97/59 L 94 09/17/24 13:27 66 14 92/60 96 09/17/24 13:26 71 14 99/60 100 09/17/24 13:21 36.6 C 64 19 105/64 100 09/17/24 13:00 36.6 C 68 12 95/59 L 95 09/17/24 12:00 36.8 C 67 17 83/53 L 96 09/17/24 12:00 67 15 94/51 L 96 09/17/24 11:00 65 14 88/49 L 93 09/17/24 10:00 76 20 81/53 L 94 09/17/24 09:00 69 18 96/53 L 95 09/17/24 08:00 37.2 C 67 22 80/45 L 94 09/17/24 07:00 68 12 90/49 L 91 L Intake & Output: Intake & Output 09/14/24 09/15/24 09/16/24 09/17/24 23:59 23:59 23:59 23:59 Intake Total 1790 / 1790 3306 / 3306 1000 / 1000 1663 / 1663 Output Total 1075 / 1075 152 / 152 190 / 190 100 / 100 Balance 715 / 715 3154 / 3154 810 / 810 1563 / 1563 Weight (kg) 107.5 kg 106.5 kg 109 kg 108 kg Objective General Appearance: positive Alert, Moderate distress (Patient was nauseous and attempted to vomit.) and Lethargic Eyes Bilateral: positive PERRL and Other (scleral icterus) ENT: positive ENT inspection nml Neck: positive Nml inspection Respiratory: positive Chest non-tender, No respiratory distress and Breath sounds nml Cardiovascular: positive Regular rate & rhythm and No murmur Abdomen: positive Non-tender, Nml bowel sounds and Other (distention d/t ascites) Skin: positive No rash, Warm and Other (ecchymosis on arms) Neurologic/Psychiatric: positive Oriented x3, Motor nml, Sensation nml and Depressed mood/affect Lab Results 09/17/24 04:28 09/17/24 04:28 Other Labs: Lab Results x24hrs 09/17/24 09/17/24 09/17/24 Range/Units 09:54 04:28 04:28 WBC (4.8-10.8) x10^3/uL RBC (4.70-6.10) 10^6/uL Hgb (14.0-18.0) g/dL Hct (42.0-52.0) % MCV (80.0-94.0) fL MCH (27.0-31.0) pg MCHC (32.0-36.0) g/dL RDW (12.0-15.0) % Plt Count (130-450) 10^3/uL MPV (7.4-11.4) fL Neut # (Auto) (1.5-6.6) 10^3/uL Lymph # (Auto) (1.5-3.5) 10^3/uL Avery # (Auto) (0.0-1.0) 10^3/uL Eos # (Auto) (0.0-0.7) 10^3/uL Baso # (Auto) (0.0-0.1) 10^3/uL Absolute Nucleated RBC x10^3/uL Nucleated RBC % /100WBC Manual Slide Review Platelet Estimate (NORMAL) Platelet Morphology (NORMAL) RBC Morph Micro Appear 1+ OVALOCYTES 1+ HYPOCHROMASIA (NORMAL) PT 28.0 H (9.9-12.6) secs INR 2.6 H (0.8-1.2) APTT 46.2 H (24.9-33.3) secs Fibrinogen 97 L* (220-496) mg/dL VBG pH 7.452 H (7.31-7.41) Ionized Calcium 1.18 (1.09-1.30) mmol/L Sodium 134 L (135-145) mmol/L Potassium 4.2 (3.5-4.5) mmol/L Chloride 108 (101-111) mmol/L Carbon Dioxide 22 (21-32) mmol/L Anion Gap 4.0 L (6-13) BUN 14 (6-20) mg/dL Creatinine 2.8 H (0.6-1.3) mg/dL Estimated GFR (MDRD) 23 L (>89) Glucose 98 (74-104) mg/dL POC Whole Bld Glucose 92 (70-100) mg/dL Calcium 8.4 L (8.5-10.3) mg/dL Phosphorus 3.0 (2.5-5.0) mg/dL Magnesium 2.0 (1.7-2.3) mg/dL Total Bilirubin 9.9 H (0.2-1.0) mg/dL AST 49 H (10-42) IU/L ALT 22 (10-60) IU/L Alkaline Phosphatase 66 (42-121) IU/L Total Protein 5.1 L (6.4-8.9) g/dL Albumin 2.2 L (3.2-5.5) g/dL Globulin 2.9 (2.1-4.2) g/dL Albumin/Globulin Ratio 0.8 L (1.0-2.2) Crossmatch IS Only 09/17/24 09/16/24 09/14/24 Range/Units 04:28 15:39 06:17 WBC 3.6 L 3.8 L (4.8-10.8) x10^3/uL RBC 2.50 L 2.65 L (4.70-6.10) 10^6/uL Hgb 7.9 L 8.2 L (14.0-18.0) g/dL Hct 22.8 L 24.2 L (42.0-52.0) % MCV 91.2 91.3 (80.0-94.0) fL MCH 31.6 H 30.9 (27.0-31.0) pg MCHC 34.6 33.9 (32.0-36.0) g/dL RDW 23.5 H 23.8 H (12.0-15.0) % Plt Count 57 L 52 L (130-450) 10^3/uL MPV 10.3 8.8 (7.4-11.4) fL Neut # (Auto) 2.1 (1.5-6.6) 10^3/uL Lymph # (Auto) 0.6 L (1.5-3.5) 10^3/uL Avery # (Auto) 0.8 (0.0-1.0) 10^3/uL Eos # (Auto) 0.1 (0.0-0.7) 10^3/uL Baso # (Auto) 0.0 (0.0-0.1) 10^3/uL Absolute Nucleated RBC 0.00 x10^3/uL Nucleated RBC % 0.0 /100WBC Manual Slide Review Indicated Platelet Estimate DECREASED (<130,000) (NORMAL) Platelet Morphology NORMAL APPEARANCE (NORMAL) RBC Morph Micro Appear 2+ ANISOCYTOSIS (NORMAL) PT (9.9-12.6) secs INR (0.8-1.2) APTT (24.9-33.3) secs Fibrinogen 110 L (220-496) mg/dL VBG pH (7.31-7.41) Ionized Calcium (1.09-1.30) mmol/L Sodium (135-145) mmol/L Potassium (3.5-4.5) mmol/L Chloride (101-111) mmol/L Carbon Dioxide (21-32) mmol/L Anion Gap (6-13) BUN (6-20) mg/dL Creatinine (0.6-1.3) mg/dL Estimated GFR (MDRD) (>89) Glucose (74-104) mg/dL POC Whole Bld Glucose (70-100) mg/dL Calcium (8.5-10.3) mg/dL Phosphorus (2.5-5.0) mg/dL Magnesium (1.7-2.3) mg/dL Total Bilirubin (0.2-1.0) mg/dL AST (10-42) IU/L ALT (10-60) IU/L Alkaline Phosphatase (42-121) IU/L Total Protein (6.4-8.9) g/dL Albumin (3.2-5.5) g/dL Globulin (2.1-4.2) g/dL Albumin/Globulin Ratio (1.0-2.2) Crossmatch IS Only See Detail Diagnostic Imaging Diagnostic Imaging Results: positive Final report reviewed ABX Reporting Has patient been on IV antibiotics over the past 48 hours?: No Sepsis Event Note (H) Evaluation Current Stage of Sepsis: Ruled out Assessment/Plan Problem List (1) Disseminated intravascular coagulation (DIC) syndrome: Impression: Impression: -DIC panel was ordered: D-dimer, PT, PTT. Fibrinogen is 97 mg/dL today. -PRBCs, platelets, FFP and cryoprecipitate were given to patient after consultation with hematology/oncology at [facility], Dr. Romero. -Continue supportive care with goal of greater than 50 platelet level and fibrinogen of 100 or greater. -Patient has been off Levophed for over 24 hours. -Continue midodrine 10mg TID (2) Acute urinary retention: Impression: Patient developed urinary retention over night on 09/15 as a complication of prostate adenocarcinoma. -His post-void residual volumes and bladder scans initially showed approx. 500cc of urine. -Straight catheter initially failed due to patient's history of prostate adenocarcinoma and difficulty with advancement. Muniz catheter has been placed after urology was consulted and patient was anesthetized for cystoscopy and urethral dilation. -Continue to monitor urine output and pain level. Patient complained of pain and trouble emptying. (3) Acute hypotension: Impression: Patient initially presented to the ED with acute hypotension and presyncope. On initial presentation, patient was thought to be septic and/or to have acute GI bleed based on history. He was given IV vancomycin, Levophed, and 2 units of PRBCs. Patient continue to be hypotensive despite these treatments until he was later diagnosed with DIC. Hematology/oncology at [facility] was consulted for treatment recommendations, as above. -Continue on midodrine 10mg TID -Supportive care with goal of platelet level greater than 50 and fibrinogen 100 or greater. (4) Alcoholic cirrhosis of liver: Impression: The patient has had complications from alcoholic cirrhosis for years and recently had therapeutic paracentesis at in June 2024. He has had multiple ER visits since March 2024 due to melena with a history of esophageal varices, hypotension and complications of cirrhosis. At a visit at , addiction counseling was discussed with the patient and he wanted to try abstinence before following up with an outpatient addiction clinic, according to medical records. However, the patient has continued to consume alcohol. -His Opske-Weifvyd-Cuuv score is 13, indicating a life expectancy of 1-3 years. His MELD score is 31, indicating the patient's 3-month mortality rate is 52.6%. His Maddrey's Discriminant Function score is 140.0. Consider prednisolone. -Patient has follow-up appointment scheduled with community association manager. -Recommend addiction counseling in outpatient setting. Qualifiers: Ascites presence: with ascites Qualified Code(s): K70.31 - Alcoholic cirrhosis of liver with ascites (5) Ascites due to alcoholic hepatitis: Impression: The patient had abdominal distention and "bloating" on admission. As stated above, patient has had alcoholic cirrhosis for many years and was educated how his symptoms As the patient was hypotensive, paracentesis was delayed until patient was stabilized. -On 09/13, IR completed paracentesis and removed 3.6 L. Received albumin. (6) Paroxysmal atrial fibrillation: Impression: Patient has been going in and out of atrial fibrillation. He has not been taking any medications to control a-fib. -Continue telemetry and observe for acute changes. -Recommend follow-up with primary care. (7) Prostate cancer: Impression: The patient was diagnosed with prostate adenocarcinoma in 2020. -He has a follow-up appointment with oncology. -Patient will continue taking Lupron. (8) Decreased appetite: Impression: Patient complains of inability to taste food and decreased appetite. -Given Remeron to stimulate appetite. -Monitor condition until discharge.
[2024-09-17] MEDS: MORPHINE 2 MG/ML CARPUJECT IVP PRN (18:41)
--- NOTE | 2024-09-17 19:12 | ANESTHESIA POST OP EVALUATION ---
Anesthesia Post Eval Post Anesthesia Eval Vitals: Last Vital Signs Temp 36.6 C 09/17/24 16:00 Pulse 64 09/17/24 18:54 Resp 9 L 09/17/24 18:54 BP 86/51 L 09/17/24 18:54 Pulse Ox 92 09/17/24 18:54 O2 Flow Rate 2 09/12/24 05:00 CV Function Including HR & BP: Stable Pain Control: Satisfactory Nausea & Vomiting: Negative Mental Status: Baseline Respiratory Status: Airway Patent Hydration Status: Satisfactory Anesthesia Complications: None
[2024-09-17] MEDS: MIRTAZAPINE 15 MG TABLET PO SCH (21:17)
[2024-09-18 06:31] LABS: BASOPHILS % (AUTO) 0.4 %; EOSINOPHILS # (AUTO) 0.1 10^3/uL (0.0-0.7); EOSINOPHILS % (AUTO) 2.2 %; HCT - HEMATOCRIT 23.6 % (42.0-52.0); HGB - HEMOGLOBIN 7.8 g/dL (14.0-18.0); LYMPHOCYTES # (AUTO) 0.6 10^3/uL (1.5-3.5); LYMPHOCYTES % (AUTO) 10.5 %; MEAN CORPUSCULAR HEMOGLOBIN 31.1 pg (27.0-31.0); MEAN CORPUSCULAR HGB CONC 33.1 g/dL (32.0-36.0); MEAN PLATELET VOLUME 9.9 fL (7.4-11.4); MONOCYTES % (AUTO) 19.5 %; NEUTROPHILS # (AUTO) 3.6 10^3/uL (1.5-6.6); PLT - PLATELET COUNT 53 10^3/uL (130-450); RED BLOOD COUNT 2.51 10^6/uL (4.70-6.10); RED CELL DISTRIBUTION WIDTH 24.1 % (12.0-15.0); WHITE BLOOD COUNT 5.3 x10^3/uL (4.8-10.8)
[2024-09-18 06:34] LABS: SLIDE REVIEW? Indicated
[2024-09-18 06:37] LABS: CALCIUM, IONIZED 1.17 mmol/L (1.09-1.30); VBG PH 7.441 (7.31-7.41)
[2024-09-18 06:42] LABS: MAGNESIUM 2.1 mg/dL (1.7-2.3)
[2024-09-18 06:48] LABS: CALCIUM 8.6 mg/dL (8.5-10.3); CREATININE 3.8 mg/dL (0.6-1.3); PHOSPHORUS 3.8 mg/dL (2.5-5.0); POTASSIUM 4.6 mmol/L (3.5-4.5)
[2024-09-18 07:07] LABS: PLATELET ESTIMATE, MANUAL DECREASED (<130,000) (NORMAL); PLATELET MORPHOLOGY NORMAL APPEARANCE (NORMAL)
--- NOTE | 2024-09-18 10:09 | PROVIDER PROGRESS NOTE ---
Subjective Prog Note Date Prog Note Date: 09/18/24 Prog Note Time: 09:11 Subjective Pt reports feeling: Worse Subjective: Mr. Sousa is a 68-year-old male with a history of alcoholic cirrhosis, prostate cancer, esophageal varices and rectal AVM who was admitted to the hospital with presyncope, acute hypotension, and ascites. Today, he reports that he feels "sad" as he thought he was going home today. He denies abdominal pain, nausea, vomiting. He denies shortness of breath, chest pain, or palpitations. He reports that he still has pain when he tries to urinate. Current Medications Current Medications Current Medications: Current Medications Generic Name Dose Route Start Last Admin Trade Name Freq PRN Reason Stop Dose Admin Atropine Sulfate 0.5 mg 09/17/24 11:50 Atropine Abboject 1 Mg/10 Ml Syringe IVP 09/18/24 10:05 Q5M PRN Bradycardia Docusate Sodium 250 - 500 mg 09/13/24 10:00 09/18/24 08:18 Docusate Sodium 250 Mg Capsule PO 250 mg DAILY KOMAL Administration Fentanyl 25 - 50 mcg 09/17/24 11:50 09/17/24 13:59 Fentanyl 100 Mcg/2 Ml Vial IVP 09/18/24 10:05 50 mcg Q5M PRN Administration BREAKTHROUGH PAIN (2nd Choice) Folic Acid 1 mg 09/10/24 16:27 09/18/24 08:19 Folic Acid 1 Mg Tablet PO 1 mg DAILY KOMAL Administration Hydromorphone HCl 0.2 - 0.6 mg 09/17/24 11:50 09/17/24 13:06 Hydromorphone 0.5 Mg/0.5 Ml Syringe IVP 09/18/24 10:05 0.6 mg Q5M PRN Administration PAIN (First Choice) Sodium Chloride 500 mls @ 20 mls/hr 09/10/24 19:52 Normal Saline 0.9% IV Q24H PRN TKO RATE Midodrine 10 mg 09/16/24 12:00 09/18/24 06:29 Midodrine 10 Mg Tablet PO 10 mg 0600,1200,1800 KOMAL Administration Mirtazapine 15 mg 09/17/24 21:00 09/17/24 21:17 Mirtazapine 15 Mg Tablet PO 15 mg QPM KOMAL Administration Morphine Sulfate 2 - 4 mg 09/17/24 11:50 09/17/24 18:41 Morphine 2 Mg/Ml Carpuject IVP 09/18/24 10:05 4 mg Q5M PRN Administration PAIN (3rd Choice) Multivitamins/Minerals 1 tab 09/10/24 21:00 09/17/24 21:17 Multivitamin W/Minerals Tablet PO 1 tab QPM KOMAL Administration Naloxone HCl 0.1 mg 09/17/24 11:50 Naloxone 0.4 Mg/Ml Vial IVP 09/18/24 10:05 Q2M PRN RESP RATE <8 Ondansetron HCl 4 mg 09/10/24 16:27 Ondansetron Odt 4 Mg Tablet TL Q6HR PRN Nausea / Vomiting Ondansetron HCl 4 mg 09/10/24 16:27 09/17/24 19:12 Ondansetron 4 Mg/2 Ml Vial IVP 4 mg Q6HR PRN Administration Nausea / Vomiting Ondansetron HCl 4 mg 09/17/24 11:50 09/17/24 14:39 Ondansetron 4 Mg/2 Ml Vial IVP 09/18/24 10:05 4 mg ONCE PRN Administration N/V (First Choice) Pantoprazole Sodium 40 mg 09/16/24 16:00 09/18/24 06:29 Pantoprazole 40 Mg Tablet PO 40 mg BIDAC KOMAL Administration Polyethylene Glycol 17 gm 09/13/24 10:00 09/18/24 08:18 Polyethylene Glycol 3350 17 Gm Packet PO 17 gm DAILY KOMAL Administration Senna 8.6 - 17.2 mg 09/13/24 10:00 09/18/24 08:18 Senna 8.6 Mg Tablet PO 8.6 mg DAILY KOMAL Administration Sodium Chloride 10 ml 09/10/24 19:52 09/17/24 19:12 Sodium Chloride Flush 0.9% 10 Ml Syringe IVP 10 ml PRN PRN Administration Per Line Care protocol Thiamine HCl 100 mg 09/10/24 16:27 09/18/24 08:18 Thiamine 100 Mg Tablet PO 100 mg DAILY KOMAL Administration Trimethoprim/Sulfamethoxazole 1 tab 09/16/24 11:00 09/18/24 08:18 Sulfameth/Trimeth Ds 800/160 Mg Tablet PO 1 tab DAILY KOMAL Administration Objective Vital Signs/Intake & Output Reviewed Vital Signs: Yes Vital Signs: Vital Signs x48h Temp Pulse Resp BP Pulse Ox 09/18/24 08:00 37.0 C 80 24 93/49 L 93 09/18/24 07:03 82 16 101/52 L 97 09/18/24 07:00 72 15 106/51 L 96 09/18/24 06:00 67 11 L 92/45 L 92 09/18/24 05:00 71 12 97/78 92 09/18/24 04:00 76 13 116/75 94 09/18/24 03:00 73 12 103/62 92 09/18/24 02:00 36.9 C 69 10 L 92/52 L 93 Intake & Output: Intake & Output 09/15/24 09/16/24 09/17/24 09/18/24 23:59 23:59 23:59 23:59 Intake Total 3306 / 3306 1000 / 1000 1863 / 1863 Output Total 152 / 152 190 / 190 265 / 265 140 / 140 Balance 3154 / 3154 810 / 810 1598 / 1598 -140 / -140 Weight (kg) 106.5 kg 109 kg 108 kg 108.5 kg Objective General Appearance: positive No acute distress and Alert Eyes Bilateral: positive PERRL and Other (scleral icterus) Neck: positive Nml inspection Respiratory: positive Chest non-tender, No respiratory distress and Breath sounds nml Cardiovascular: positive Irregularly irregular (atrial fibrillation) Abdomen: positive Non-tender and Other (Distention and ascites) Skin: positive No rash, Warm and Other (Ecchymosis on right arm) Extremities: positive Non-tender and No pedal edema Neurologic/Psychiatric: positive Oriented x3 and Depressed mood/affect Lab Results 09/18/24 06:24 09/18/24 06:24 Other Labs: Lab Results x24hrs 09/18/24 09/18/24 09/18/24 Range/Units 06:24 06:24 06:24 WBC 5.3 (4.8-10.8) x10^3/uL RBC 2.51 L (4.70-6.10) 10^6/uL Hgb 7.8 L (14.0-18.0) g/dL Hct 23.6 L (42.0-52.0) % MCV 94.0 (80.0-94.0) fL MCH 31.1 H (27.0-31.0) pg MCHC 33.1 (32.0-36.0) g/dL RDW 24.1 H (12.0-15.0) % Plt Count 53 L (130-450) 10^3/uL MPV 9.9 (7.4-11.4) fL Neut # (Auto) 3.6 (1.5-6.6) 10^3/uL Lymph # (Auto) 0.6 L (1.5-3.5) 10^3/uL [place] # (Auto) 1.0 (0.0-1.0) 10^3/uL Eos # (Auto) 0.1 (0.0-0.7) 10^3/uL Baso # (Auto) 0.0 (0.0-0.1) 10^3/uL Absolute Nucleated RBC 0.00 x10^3/uL Nucleated RBC % 0.0 /100WBC Manual Slide Review Indicated Platelet Estimate DECREASED (<130,000) (NORMAL) Platelet Morphology NORMAL APPEARANCE (NORMAL) RBC Morph Micro Appear 1+ OVALOCYTES 1+ HYPOCHROMASIA 2+ ANISOCYTOSIS (NORMAL) VBG pH 7.441 H (7.31-7.41) Ionized Calcium 1.17 (1.09-1.30) mmol/L Sodium 133 L (135-145) mmol/L Potassium 4.6 H (3.5-4.5) mmol/L Chloride 107 (101-111) mmol/L Carbon Dioxide 21 (21-32) mmol/L Anion Gap 5.0 L (6-13) BUN 21 H (6-20) mg/dL Creatinine 3.8 H (0.6-1.3) mg/dL Estimated GFR (MDRD) 16 L (>89) Glucose 125 H (74-104) mg/dL POC Whole Bld Glucose (70-100) mg/dL Calcium 8.6 (8.5-10.3) mg/dL Phosphorus 3.8 (2.5-5.0) mg/dL Magnesium 2.1 (1.7-2.3) mg/dL 09/17/24 Range/Units 09:54 WBC (4.8-10.8) x10^3/uL RBC (4.70-6.10) 10^6/uL Hgb (14.0-18.0) g/dL Hct (42.0-52.0) % MCV (80.0-94.0) fL MCH (27.0-31.0) pg MCHC (32.0-36.0) g/dL RDW (12.0-15.0) % Plt Count (130-450) 10^3/uL MPV (7.4-11.4) fL Neut # (Auto) (1.5-6.6) 10^3/uL Lymph # (Auto) (1.5-3.5) 10^3/uL [place] # (Auto) (0.0-1.0) 10^3/uL Eos # (Auto) (0.0-0.7) 10^3/uL Baso # (Auto) (0.0-0.1) 10^3/uL Absolute Nucleated RBC x10^3/uL Nucleated RBC % /100WBC Manual Slide Review Platelet Estimate (NORMAL) Platelet Morphology (NORMAL) RBC Morph Micro Appear (NORMAL) VBG pH (7.31-7.41) Ionized Calcium (1.09-1.30) mmol/L Sodium (135-145) mmol/L Potassium (3.5-4.5) mmol/L Chloride (101-111) mmol/L Carbon Dioxide (21-32) mmol/L Anion Gap (6-13) BUN (6-20) mg/dL Creatinine (0.6-1.3) mg/dL Estimated GFR (MDRD) (>89) Glucose (74-104) mg/dL POC Whole Bld Glucose 92 (70-100) mg/dL Calcium (8.5-10.3) mg/dL Phosphorus (2.5-5.0) mg/dL Magnesium (1.7-2.3) mg/dL Diagnostic Imaging Diagnostic Imaging Results: positive Final report reviewed ABX Reporting Has patient been on IV antibiotics over the past 48 hours?: No Sepsis Event Note (H) Evaluation Current Stage of Sepsis: Ruled out Assessment/Plan Problem List (1) Acute renal failure: Impression: As a complication of alcoholic cirrhosis and hepatorenal syndrome, the patient's kidney function has declined significantly. Historically, in April 2024, the patient's creatinine, BUN and GFR were all within normal range. However, since his hospitalization, his creatinine has increased to 3.8 mg/dL; his BUN has increased to 21; his GFR has declined to 16. This morning, he had 100mL of blood and he reported pain and inability to empty completely. -Discuss plan of care with patient and family -Consider possible transfer to [facility] Qualifiers: Acute renal failure type: unspecified Qualified Code(s): N17.9 - Acute kidney failure, unspecified (2) Disseminated intravascular coagulation (DIC) syndrome: Impression: DIC panel was ordered: D-dimer, PT, PTT. Fibrinogen was 97 mg/dL yesterday. Platelet level is 53 today. -PRBCs, platelets, FFP and cryoprecipitate were given to patient after consultation with hematology/oncology at [facility], Dr. Romero. -Continue supportive care with goal of greater than 50 platelet level and fibrinogen of 100 or greater. -Patient has been off Levophed for over 48 hours. -Continue midodrine 10mg TID (3) Acute urinary retention: Impression: Patient developed urinary retention over night on 09/15 as a complication of prostate adenocarcinoma. The patient continues to have pain and is not urinating due to acute hepatorenal failure. -His post-void residual volumes and bladder scans initially showed approx. 500cc of urine. -Straight catheter initially failed due to patient's history of prostate adenocarcinoma and difficulty with advancement. Muniz catheter was placed after urology was consulted and patient was anesthetized for cystoscopy and urethral dilation. -Continue to monitor output and manage pain. (4) Acute hypotension: Impression: Patient initially presented to the ED with acute hypotension and presyncope. On initial presentation, patient was thought to be septic and/or to have acute GI bleed based on history. He was given IV vancomycin, Levophed, and 2 units of PRBCs. Patient continue to be hypotensive despite these treatments until he was later diagnosed with DIC. Hematology/oncology at [facility] was consulted for treatment recommendations, as above. -Continue supportive care (5) Alcoholic cirrhosis of liver: Impression: The patient has had complications from alcoholic cirrhosis for years and recently had therapeutic paracentesis at in June 2024. He has had multiple ER visits since March 2024 due to melena from esophageal varices, hypotension and complications of cirrhosis. At a visit at , addiction counseling was discussed with the patient and he wanted to try abstinence before following up with an outpatient addiction clinic, according to medical records. However, the patient continued consuming alcohol. -His Fubqx-Lduszra-Xnqk score is 13, indicating a life expectancy of 1-3 years. His MELD score is 31, indicating the patient's 3-month mortality rate is 52.6%. His Maddrey's Discriminant Function score is 140.0. Prednisolone was initially considered before the patient's condition declined further. -Patient has follow-up appointment scheduled with radiographer cardiac catheterization. -Recommend addiction counseling in outpatient setting. Qualifiers: Ascites presence: with ascites Qualified Code(s): K70.31 - Alcoholic cirrhosis of liver with ascites (6) Ascites due to alcoholic hepatitis: Impression: The patient had abdominal distention and "bloating" on admission. As stated above, patient has had alcoholic cirrhosis for many years and was educated how his symptoms As the patient was hypotensive, paracentesis was delayed until patient was stabilized. The patient continues to complain of "bloating". -On 09/13, IR completed paracentesis and removed 3.6 L. The patient received albumin. (7) Paroxysmal atrial fibrillation: Impression: Patient has been going in and out of atrial fibrillation. He has not been taking any medications to control a-fib. -Continue telemetry and observe for acute changes. (8) Prostate cancer: Impression: The patient was diagnosed with prostate adenocarcinoma in 2020. -He has a follow-up appointment with oncology. -Patient will continue taking Lupron.
[2024-09-18] MEDS: NOREPINEPHRINE/0.9 % NS 8 MG/250 ML BAG IV SCH (17:11)
--- NOTE | 2024-09-18 17:46 | ADVANCE CARE PLANNING NOTE ---
Advance Care Planning Planning Encounter Date: 09/18/24 Time: 17:42 Purpose: Establish care goals Parties in Attendance: , hospitalist, PA student, his nurse Dary Decisional Capacity of the Patient: Alert and oriented to person, place, time but appears to have limited understanding of his situation. Very basic and fatalistic Diagnosis for Encounter (1) Acute renal failure: Qualifiers: Acute renal failure type: unspecified Qualified Code(s): N17.9 - Acute kidney failure, unspecified Summary: Baseline creatinine is 1.0. When he was admitted he was 1.0, then went to 1.6 the next day. Yesterday 2.8. Today 3.8. In spite of the Muniz catheter being placed, yesterday, he still is not making any urine. I fear he may have gone into ATN due to his hypotension and DIC. He also underwent paracentesis but less than 4 L. Encounter Subjective/Patient's Story: He tells me that his main jonathan in life is playing [place] he laments the fact that he is still here in the hospital because he has missed several good golf games with his friends. I reminded him that it has been within the and raining outside the last few days. I would think that it would be okay not to play golf. He and his both laughed and states that all of his friends are still out there,, rain or shine. He does not feel bad. He is bored. Wonders why he still here. He feels like if his DIC has abated, why can he go home. He did have episodes of hypotension requiring Levophed in the ICU. Levophed has been discontinued and he has had occasional mild hypotension into the 80s with a MAP below 55. I think that has resulted in renal failure and have explained that to him. He has had no urine output. I do think that this may be temporary. Not permanent. I discussed the fact that if he continues to be in renal failure, I would need to transfer him to higher level of care for expectant management in case he needs dialysis. This morning he said he would leave all of these decisions in his 's hand. So I ask for a advance care planning conversation this af ternoon to make sure his was aware that he was abdicating his decision making to her. She protests. She does not want to make this decision on her own. He does admit that he still loves life. Still has a lot of fun with life in spite of his liver failure and still wants treatment. He hopes that (if he can stay sober and not drink) that his liver will slowly recover. As such he still wants to be a full code. He would want to be intubated if needed. And he states that if the dialysis was temporary and would save his life, he would want dialysis. Objective/Medical Story: Patient is a 68-year-old male with history of decompensated cirrhosis, prostate adenocarcinoma, recent episode of melena s/p AVM ablation in 06/27/2024 who presented to this ER because of a near syncope event. Patient presented to a walk-in clinic for lab draw, but when he was called back, he got very lightheaded and dizzy and almost fell over. He states that this happens occasionally, when he stands up rapidly. He denies any fevers or chills. He does state that he has had some worsening abdominal distention over the last few months. The last time he had a paracentesis was at his last hospitalization at [facility], where they remove 9 L. He has no abdominal tenderness. He has no cough. He does feel lightheaded on occasion with standin g. He does endorse some bright red blood in his stool, in the toilet bowl, and with wiping. States that this happened a few times since discharge. His discharge summary was reviewed from [facility] on 06/27/2024. He presented with decompensated cirrhosis and hematochezia. He underwent a diagnostic and therapeutic paracentesis with 3 L of volume removed. His discharge standing weight was 238 pounds. He is 242 pounds today. His hospital course was notable for melena. His hemoglobin was between 8 and 9 at that time. GI was consulted, and colonoscopy revealed rectal atrial venous malformation that was treated with argon plasma coagulation. EGD showed small esophageal varices not amenable to banding. He did not require any transfusion at that time. He tells me that he was told that if he did not stop drinking his liver was going to and that meant that he would . The only thing that might make this better, over time, is if he stopped drinking. So he has had no alcohol since June. He did have a sip of beer over [facility] but did not even do a full drink. His endorses that history. States he has not been drinking. While here he has been treated for DIC. While here he has received 6 units of leukoreduced RBCs. 1 platelet pheresis pack. 2 FFP packs. And cryoprecipitate. Yesterday's PT was 28. INR 2.6. PTT 46.2. Fibrinogen 97. Today's white cell count is normal at 5.8. Hemoglobin is 7.8 and stable from yesterday 7.9. Platelets are 53 and stable from yesterday's 57. The only manifestation of bleeding right now is the Muniz catheter where he has bloody discharge. But no urine.He had been having urgency, frequency and inability to urinate. We attempted Muniz's a couple of time and were unsuccessful. He had to be taken to the OR to have a Muniz placed by urology. That has been in since the day before yesterday. Goals of Care: to continue to receive full care for any problem in spite of severe liver disease and prostatic adenocarcinoma. He wants to go home Plan: There is no signs and symptoms of congestive heart failure in spite of the renal failure. Will repeat creatinine tomorrow. If his creatinine continues to rise and he has no urine output, I will request to transfer to [facility] since his hepatology clinic is there.And his are amenable to that. In the meantime I will start him on Levophed to raise his blood pressure, and start octreotide.I will wait on albumin since he is in renal failure. Code Status: Attempt Resuscitation Time spent on advance care plannin minutes
[2024-09-18] MEDS: OCTREOTIDE 500 MCG in SODIUM CHLORIDE 0.9% 100ML 99 ML IV SCH (18:33)
[2024-09-19 04:54] LABS: CALCIUM 8.5 mg/dL (8.5-10.3); MAGNESIUM 2.2 mg/dL (1.7-2.3); PHOSPHORUS 3.8 mg/dL (2.5-5.0); POTASSIUM 4.8 mmol/L (3.5-4.5)
[2024-09-19 04:59] LABS: CALCIUM, IONIZED 1.13 mmol/L (1.09-1.30); VBG PH 7.473 (7.31-7.41)
[2024-09-19 09:23] LABS: BASOPHILS % (AUTO) 0.5 %; EOSINOPHILS # (AUTO) 0.2 10^3/uL (0.0-0.7); EOSINOPHILS % (AUTO) 3.3 %; HCT - HEMATOCRIT 25.4 % (42.0-52.0); HGB - HEMOGLOBIN 8.5 g/dL (14.0-18.0); LYMPHOCYTES # (AUTO) 0.7 10^3/uL (1.5-3.5); LYMPHOCYTES % (AUTO) 11.6 %; MEAN CORPUSCULAR HEMOGLOBIN 31.5 pg (27.0-31.0); MEAN CORPUSCULAR HGB CONC 33.5 g/dL (32.0-36.0); MEAN CORPUSCULAR VOLUME 94.1 fL (80.0-94.0); MONOCYTES % (AUTO) 16.9 %; NEUTROPHILS # (AUTO) 4.1 10^3/uL (1.5-6.6); NEUTROPHILS % (AUTO) 66.9 %; PLT - PLATELET COUNT 63 10^3/uL (130-450); WHITE BLOOD COUNT 6.1 x10^3/uL (4.8-10.8)
[2024-09-19 09:24] LABS: SLIDE REVIEW? Indicated
[2024-09-19 09:25] LABS: RBC MORPHOLOGY (MULTIPLE) 4+ ANISOCYTOSIS (NORMAL)
[2024-09-19 09:37] LABS: CALCIUM 8.6 mg/dL (8.5-10.3); CREATININE 4.5 mg/dL (0.6-1.3)
--- NOTE | 2024-09-19 15:18 | Discharge Summary ---
Discharge Summary Admit Date: 09/10/24 Discharge Date: 09/19/24 Discharging Provider: Terrie Garner MD Primary Care Provider: ELLA Red Code Status: Attempt Resuscitation Discharge [facility] Name: [facility] DIAGNOSES Discharge Diagnoses with Status of Each Condition: 1. DIC syndrome 2. Acute blood loss due to #1 3. Acute urinary retention requiring Muniz placement in OR 4. Acute hypotension requiring Levophed 5. Alcoholic cirrhosis of the liver 6. Ascites due to alcoholic hepatitis 7. Paroxysmal atrial fibrillation 8. Prostate cancer 9. Acute renal failure due to ATN HPI History of Present Illness: Patient is a 68-year-old male with history of decompensated cirrhosis, prostate adenocarcinoma, recent episode of melena s/p AVM ablation in 06/27/2024 who presented for a near syncope event. Patient presented to a walk-in clinic for lab draw, but when he was called back, he got very lightheaded and dizzy and almost fell over. He states that this happens occasionally, when he stands up rapidly. He denies any fevers or chills. He does state that he has had some worsening abdominal distention over the last few months. The last time he had a paracentesis was at his last hospitalization at [facility], where they remove 9 L. He has no abdominal tenderness. He has no cough. He does feel lightheaded on occasion with standing. He does endorse some bright red blood in his stool, in the toilet bowl, and with wiping. States that this happened a few times since discharge. His discharge summary was reviewed from [facility] on 06/27/2024. He presented with decompensated cirrhosis and hematochezia. He underwent a diagnostic and therapeutic paracentesis with 3 L of volume removed. His discharge standing weight was 238 pounds. He is 242 pounds today. His hospital course was notable for melena. His hemoglobin was between 8 and 9 at that time. GI was consulted, and colonoscopy revealed rectal atrial venous malformation that was treated with argon plasma coagulation. EGD showed small esophageal varices not amenable to banding. He did not require any transfusion at that time. Was found to have acute hypotension leading to a presyncopal event. He had been fasting prior to getting his labs drawn which may have played a part in his feeling unwell. He also was felt to have worsening cirrhosis with advanced portal hypertension leading to systemic vasodilation and hypotension. Hemoglobin had dropped and he was transfused a unit of blood in the ER. The patient was admitted to continue to monitor for possible GI bleed. CONSULTS | PROCEDURES Procedures: Abdominal ultrasound with moderate ascites in all 4 quadrants. Paracentesis to 3.7 L done on September 13. Blood cultures from September 12 were without growth after 5 days. These were done because the September 10 blood cultures grew out Micrococcus luteus. But the Micrococcus luteus was not reported postitive until the . We think this may be some form of contamination. Ascites body fluid from September 10 had no growth. Central line was placed in the ER HOSPITAL COURSE Hospital Course: He was initially the ICU and started on Levophed for his low blood pressure. He had a child Silva score 13 points, life expectancy of 1 to 3 years was calculated. MELD score 34 with a 52.6% mortality rate. Madrey discriminant function was 111.5 and it was thought that he would benefit from steroids but steroids were held due to the possibility of active GI bleed that they thought was the source of contributing to his hypotension and near syncope. He was felt to be an early hepatorenal syndrome. His liver enzymes were noted to be elevated with a bili of close to 10 and again, felt to be in the setting of hepatopathy but no acute cholecystitis. He did not have a fever or white cell count. Over the next 2 days he was monitored for his blood pressure, anemia, and continues to be hypotensive in the 90s systolic. Required Levophed to maintain that pressure. It was then recognized that this patient was most likely in DIC (hematuria and oozing at lines/central line) and over the next few days received 6 units of leukocyte reduced packed cells, 1 platelet pheresis pack, 2 FFP packs.His last transfusion was the . Muniz catheter does have blood.Today's white cell count is 6.1, hemoglobin 8.5, hematocrit 25.4. Platelets 63. These labs have been stable for the last 48 hours. He has an interesting patient. He states that he does not feel this badly and that we are all overreacting. He kept on saying that he wanted to go home and was extremely disappointed when we would tell him he could not. Many conversations were held with hepatology and ICU at [facility]. Plans were for transfer to higher level of care with the specialist because we were worried about decompensation. [facility] accepted the patient and there was a bed available. But at that point, the patient was still adamant that we were overreacting. Despite our warning of coagulopathy, hypotension, no specialty support, he did not want to be transferred. This was on September 14. He does have an ammonia level that is quite elevated. Today it is 101. But I have opted not to give him lactulose since he is alert and oriented to person, place, time and situation. For empiric treatment, he was on Rocephin for spontaneous bacterial peritonitis as a possibility that contributed to his hypotension. By September 17, his blood pressure was stable enough to come off Levophed. And his requirement for packed cells, FFP had gone away. He did receive a paracentesis on September 13. 3.6 L was removed but not sent for analysis. however he was intermittently hypotensive. Blood pressure will sometimes drop into the 50s with a MAP in the 50s. But he was able to bounce back up to the 90s. He began having diminishing urine output and the nurses initially felt that he had an obstructed urinary pathway. Muniz was placed by urology and once Muniz was then we realized he was making no urine. On September 15 his creatinine was 1.0. By the he was 2.8. On the it was 3.8. I started him on Levophed and hope that improving his MAP would improve his urine output. It minimally improved the output to 10 cc an hour. Today his creatinine is 4.5. He is mildly hyperkalemic at 5. While I do not feel he is a dialysis candidate today, he may need dialysis if his ATN does not resolve quickly enough. I had a conference with he and his on the . I reiterated the overall global prognosis for this gentleman. He was exasperated and said "I know all of that". He knows that he has a poor prognosis and that he most likely has the odds stacked against him in the next year. But he is convinced (because he stopped drinking) that his liver will slowly recover. Or if he stays sober long enough he could be a candidate for liver transplant. I told him that was highly unlikely. He clearly states that he still has quite a bit of enjoyment with life. He enjoys his friends. He dearly loves his . The 1 thing he likes to do is play golf and he does think he can return to that in the near future if he stays clean and sober. I asked about CODE STATUS and asked if he really wanted to be fully resuscitated and he stated yes. He is not ready to let go and does not want to give up. I asked him if he wanted dialysis because of the hepatorenal syndrome I was seen. He said yes. So he agrees to transfer on the basis of his renal function. I initially contacted the [facility] since he has a relationship with them from June of this year. The physician on-call stated that the institution does not dialyze hepatic failure patients unless they are a liver transplant candidate. I then contacted [facility]. Dr. Mateus Carias understood the [facility] philosophy. He does not think this patient would be a candidate for dialysis. But he understood the dilemma that we have here at a critical access hospital. As such, he is accepted the patient in transfer. He says that he is going to have a long conversation with the patient and his before they move forward with any aggressive measures. The patient is on Levophed. He is transferred in stable condition. Again keeps on rolling his eyes at me and tells me that "I feel good enough to go home" and is exasperated that we feel he is so ill. I asked his why there is such a disconnect between our emphasis of how severely ill he is and his denial of that, and she states that most likely it is a combination of stubbornness, lack of education. Blood pressure is 124/70, pulse 67, respirations 18, temperature 36.8, O2 sat 94% on room air. Weight on admission was 110.2 kg. Weight today is 109 kg. He is a deeply tanned stocky male who is usually sleeping when I walk in the room but wakes easily to my voice and is appropriate in conversation. Sclera is icteric. Neck is thick. Diminished breath sounds at the bases but no respiratory distress.He is not in congestive heart failure. Regular rate and rhythm with distant cardiac tones. And abdomen is protuberant, nontender, does have a faint fluid wave. Edema of his lower extremities. No asterixis. Greater than 30 minutes was spent coordinating discharge. Call his at the number given in the chart for contact. That number has been disconnected. Nursing states that the patient is able to contact his directly and they will make sure to let her know that he is being transferred today. This document was made in part using voice recognition software. While efforts are made to proofread this document, sound alike and grammatical errors may occur. ALLERGIES Allergies Allergy/AdvReac Type Severity Reaction Status Date / Time grass pollen Allergy Mild Sneezing, Verified 09/10/24 10:49 runny nose, itchy eyes MEDICATIONS Ambulatory Orders Medication Instructions Recorded Confirmed simvastatin 40 mg tablet 40 mg PO QPM 05/02/24 09/10/24 furosemide 40 mg tablet 40 mg PO DAILY 07/04/24 09/11/24 multivitamin 1 tab PO QPM 07/04/24 09/10/24 pantoprazole 40 mg tablet,delayed 40 mg PO BID 07/04/24 09/10/24 release spironolactone 100 mg tablet 100 mg PO DAILY 07/04/24 09/11/24 thiamine mononitrate (vit B1) 100 100 mg PO QDAY 07/04/24 09/10/24 mg tablet sulfamethoxazole 800 1 tab PO DAILY 09/12/24 09/12/24 mg-trimethoprim 160 mg tablet folic acid 1 mg tablet See Rx Instructions .Route 09/16/24 .COMPLEX #30 tabs PHYSICAL EXAM AT DISCHARGE Vital Signs: Vital Signs x48h Temp Pulse Resp BP Pulse Ox 09/19/24 17:00 69 17 130/78 94 09/19/24 16:00 36.8 C 67 18 124/70 94 09/19/24 15:00 60 13 120/65 96 09/19/24 14:00 66 14 118/61 94 09/19/24 13:00 70 15 125/71 95 09/19/24 12:00 36.9 C 62 13 108/64 97 LABS 09/19/24 09:15 09/19/24 09:15 SEPSIS Current Stage of Sepsis: Ruled out Discharge Plan Discharge Patient Disposition: 02 Transfer Acute Care Hosp Condition: Critical Prescriptions: No Action folic acid 1 mg tablet See Rx Instructions .ROUTE .COMPLEX Qty: 30 0RF Dose Instruction: TAKE 1 TABLET BY MOUTH EVERY DAY Rx Instructions: TAKE 1 TABLET BY MOUTH EVERY DAY simvastatin 40 mg tablet 40 mg PO QPM Rx Instructions: TAKE 1 TABLET BY MOUTH AT BEDTIME sulfamethoxazole-trimethoprim 800-160 mg tablet 1 tab PO DAILY Patient Comments: TAKE 1 TABLET BY MOUTH DAILY pantoprazole 40 mg tablet,delayed release (DR/EC) 40 mg PO BID Patient Comments: Started at 06/27/24 Rx Instructions: before meals spironolactone 100 mg tablet 100 mg PO DAILY Patient Comments: Started at 06/27/24 thiamine mononitrate (vit B1) 100 mg tablet 100 mg PO QDAY Patient Comments: Started at 06/27/24 furosemide 40 mg tablet 40 mg PO DAILY Patient Comments: Updated at 06/27/24 multivitamin Tablet 1 tab PO QPM Print Language: Italian Follow-up Care: Ivette Denson ARNP [Primary Care Provider] -
[2024-09-19 16:09] VITALS: TEMP 98.2; O2SAT 94
[2024-09-19 17:18] VITALS: BP 130/78
== END 2024-09-19 18:15 | disposition short-term general hospital (02) | DRG 813 ==
LOC: ED 10:41 → ICU 15:55
PROVIDERS: ADMIT Internal Medicine; ATTEND Internal Medicine
DX: M79.81 Nontraumatic hematoma of soft tissue; K92.1 Melena; K70.11 Alcoholic hepatitis with ascites; K72.10 Chronic hepatic failure without coma; R65.21 Severe sepsis with septic shock; A41.9 Sepsis, unspecified organism; E78.5 Hyperlipidemia, unspecified; N18.9 Chronic kidney disease, unspecified; J18.9 Pneumonia, unspecified organism; N35.919 Unspecified urethral stricture, male, unspecified site; K70.31 Alcoholic cirrhosis of liver with ascites; R18.8 Other ascites; D65 Disseminated intravascular coagulation [defibrination syndrome]; R63.0 Anorexia; E87.5 Hyperkalemia; R31.9 Hematuria, unspecified; K76.7 Hepatorenal syndrome; I48.0 Paroxysmal atrial fibrillation; I10 Essential (primary) hypertension; D62 Acute posthemorrhagic anemia; R30.0 Dysuria; I95.9 Hypotension, unspecified; C61 Malignant neoplasm of prostate; R33.9 Retention of urine, unspecified; F10.20 Alcohol dependence, uncomplicated; K76.6 Portal hypertension; Z68.36 Body mass index [BMI] 36.0-36.9, adult; D64.9 Anemia, unspecified; N17.0 Acute kidney failure with tubular necrosis